=== PATIENT | male | born 1950 | race Caucasian/White ===

== ENCOUNTER 2016-12-04 02:28 | Inpatient (IN) | payer MEDICARE, OTHER ==
[~2016-12-04] VITALS: Ht 182.9 cm; Wt 85.3 kg
[2016-12-04] VITALS (7 sets, daily range): BP systolic 109–170; BP diastolic 74–114
--- NOTE | 2016-12-04 02:55 | PHYS DOC ---
Past Medical History Past Medical History: High Cholesterol, Hypothyroid, Prostatitis Past Surgical History: Appendectomy, Other Additional Past Surgical Histo: TUMOR REMOVAL FROM GROIN Alcohol Use: None Drug Use: None Adult General Chief Complaint Chief Complaint: GROIN PAIN HPI HPI Patient is a 66 year old male with a history of prostatitis who states that he have a flareup for the past week. Patient called his PCP earlier in the week who prescribed him Levaquin which she has taken the past for his acute prostatitis. Chem emergency room because the pain has been persistent and increasing without any relief. Patient denies any fevers or chills. Patient complains of severe abdominal pain with radiation down his left leg. Patient denies any chest pain or shortness of breath. Patient has no other complaints. Pertinent exam findings: Generalized abdominal tenderness with bowel sounds in all 4 quadrants ED course: 0251: CBC, CMP, lipase, UA, CT of abdomen and pelvis with IV contrast, fentanyl 50 micrograms, 1L nS boulus 0405: He was given 100 g of fentanyl 0417: Results of CT scan and lab work was discussed the patient who states he has no known history of hyponatremia and explained the need to admit the patient to the hospital. 0427: Discussed CC/HPI/PMH with Dr. Jeronimo who agrees to admit the patient Pertinent results: IMPRESSION of CT 1. Moderate atelectasis or scarring in the lung bases. 2. Small hiatal hernia. 3. Hepatic cysts. 4. Mild bilateral hydroureter. There is no hydronephrosis or ureteral calculus or periureteral stranding. Clinical significance uncertain. 5. Moderate colon stool volume. Mild distal colon diverticulosis without evidence of diverticulitis. ED medical decision-making: After reviewing the chart, chief complaint, history of present illness, past mental history, physical exam, lab results, CT results I believe the patient needs to be admitted the hospital for intractable abdominal pain and hyponatremia. Review of Systems Review of Systems Constitutional: Denies fever or chills [] Eyes: Denies change in visual acuity, redness, or eye pain [] HENT: Denies nasal congestion or sore throat [] Respiratory: Denies cough or shortness of breath [] Cardiovascular: No additional information not addressed in HPI [] GI: Abdominal pain : Denies dysuria or hematuria [] Musculoskeletal: Denies back pain or joint pain [] Integument: Denies rash or skin lesions [] Neurologic: Denies headache, focal weakness or sensory changes [] Endocrine: Denies polyuria or polydipsia [] Current Medications Current Medications Current Medications Medications (Trade) Dose Ordered Sig/Shukri Start Time Stop Time Status Last Admin Dose Admin Fentanyl Citrate (Fentanyl 2ml Vial) 100 mcg 1X ONCE 12/04/16 04:30 12/04/16 04:31 DC 12/04/16 04:19 100 MCG Info (Do NOT chart on this entry -- for MONITORING) 1 each PRN DAILY PRN 12/04/16 03:15 12/06/16 03:14 Iohexol (Omnipaque 300 Mg/ml) 75 ml 1X ONCE 12/04/16 04:00 12/04/16 04:01 DC 12/04/16 03:55 75 ML Sodium Chloride 1,000 ml @ 1,000 mls/hr 1X ONCE 12/04/16 03:00 12/04/16 03:59 DC 12/04/16 03:04 1,000 MLS/HR Allergies Allergies Allergies Coded Allergies Type Severity Reaction Last Updated Verified No Known Drug Allergies 01/23/15 No Physical Exam Physical Exam Constitutional: Well developed, well nourished, no acute distress, non-toxic appearance. [] HENT: Normocephalic, atraumatic, bilateral external ears normal, oropharynx moist, no oral exudates, nose normal. [] Eyes: PERRLA, EOMI, conjunctiva normal, no discharge. [] Neck: Normal range of motion, no tenderness, supple, no stridor. [] Cardiovascular:Heart rate regular rhythm, no murmur [] Lungs & Thorax: Bilateral breath sounds clear to auscultation [] Abdomen: Bowel sounds normal, soft, general tenderness, no masses, no pulsatile masses. [] Skin: Warm, dry, no erythema, no rash. [] Back: No tenderness, no CVA tenderness. [] Extremities: No tenderness, no cyanosis, no clubbing, ROM intact, no edema. [] Neurologic: Alert and oriented X 3, normal motor function, normal sensory function, no focal deficits noted. [] Psychologic: Affect normal, judgement normal, mood normal. [] Current Patient Data Vital Signs Vital Signs Date Time Temp Pulse Resp B/P (MAP) Pulse Ox O2 Delivery O2 Flow Rate FiO2 5/13/17 02:43 98.0 69 20 145/98 (114) 97 Room Air 98.0 Lab Values Laboratory Tests Test 12/04/16 02:33 12/04/16 02:41 Urine Collection Type Unknown Urine Color Yellow Urine Clarity Clear Urine pH 8.0 Urine Specific [place] 1.015 Urine Protein Negative mg/dL (NEG-TRACE) Urine Glucose (UA) Negative mg/dL (NEG) Urine Ketones (Stick) Trace mg/dL (NEG) Urine Blood Negative (NEG) Urine Nitrite Negative (NEG) Urine Bilirubin Negative (NEG) Urine Urobilinogen Dipstick 1.0 mg/dL (0.2 mg/dL) Urine Leukocyte Esterase Negative (NEG) Urine RBC Occ /HPF (0-2) Urine WBC 1-4 /HPF (0-4) Urine Squamous Epithelial Cells Occ /LPF Urine Bacteria 0 /HPF (0-FEW) White Blood Count 6.4 x10^3/uL (4.0-11.0) Red Blood Count 4.80 x10^6/uL (4.30-5.70) Hemoglobin 13.9 g/dL (13.0-17.5) Hematocrit 41.0 % (39.0-53.0) Mean Corpuscular Volume 86 fL (79-100) Mean Corpuscular Hemoglobin 29 pg (25-35) Mean Corpuscular Hemoglobin Concent 34 g/dL (31-37) Red Cell Distribution Width 16.4 % (11.5-14.5) H Platelet Count 185 x10^3/uL (140-400) Neutrophils (%) (Auto) 61 % (31-73) Lymphocytes (%) (Auto) 29 % (24-48) Monocytes (%) (Auto) 9 % (0-9) Eosinophils (%) (Auto) 1 % (0-3) Basophils (%) (Auto) 1 % (0-3) Neutrophils # (Auto) 3.9 x10^3uL (1.8-7.7) Lymphocytes # (Auto) 1.9 x10^3/uL (1.0-4.8) Monocytes # (Auto) 0.5 x10^3/uL (0.0-1.1) Eosinophils # (Auto) 0.0 x10^3/uL (0.0-0.7) Basophils # (Auto) 0.1 x10^3/uL (0.0-0.2) Sodium Level 123 mmol/L (136-145) L Potassium Level 3.4 mmol/L (3.5-5.1) L Chloride Level 87 mmol/L (98-107) L Carbon Dioxide Level 28 mmol/L (21-32) Anion Gap 8 (6-14) Blood Urea Nitrogen 12 mg/dL (8-26) Creatinine 0.9 mg/dL (0.7-1.3) Estimated GFR (Cockcroft-Gault) 83.9 BUN/Creatinine Ratio 13 (6-20) Glucose Level 85 mg/dL (70-99) Calcium Level 8.2 mg/dL (8.5-10.1) L Total Bilirubin 0.6 mg/dL (0.2-1.0) Aspartate Amino Transferase (AST) 22 U/L (15-37) Alanine Aminotransferase (ALT) 23 U/L (16-63) Alkaline Phosphatase 47 U/L (46-116) Total Protein 7.0 g/dL (6.4-8.2) Albumin 3.5 g/dL (3.4-5.0) Albumin/Globulin Ratio 1.0 (1.0-1.7) Lipase 79 U/L (73-393) Laboratory Tests 12/04/16 02:41 Laboratory Tests 12/04/16 02:41 EKG EKG [] Radiology/Procedures Radiology/Procedures CT Abd and Pelvis: IMPRESSION 1. Moderate atelectasis or scarring in the lung bases. 2. Small hiatal hernia. 3. Hepatic cysts. 4. Mild bilateral hydroureter. There is no hydronephrosis or ureteral calculus or periureteral stranding. Clinical significance uncertain. 5. Moderate colon stool volume. Mild distal colon diverticulosis without evidence of diverticulitis.[] Course & Med Decision Making Course & Med Decision Making Pertinent Labs and Imaging studies reviewed. (See chart for details) [] Dragon Disclaimer Dragon Disclaimer This electronic medical record was generated, in whole or in part, using a voice recognition dictation system. Departure Departure Impression: Primary Impression: Hyponatremia Additional Impression: Intractable abdominal pain Disposition: 09 ADMITTED INPATIENT Admitting Physician: Dany Jeronimo Condition: STABLE Referrals: DANY JERONIMO MD (PCP) Problem Qualifiers KIRSTY BELL DO December 04, 2016 02:55
[2016-12-04 02:59] LABS: BASO # 0.1 x10^3/uL (0.0-0.2); BASO % 1 % (0-3); EOS % 1 % (0-3); HEMOGLOBIN 13.9 g/dL (13.0-17.5); LYMPH # 1.9 x10^3/uL (1.0-4.8); LYMPH % 29 % (24-48); MEAN CORPUSCULAR HEMOGLOBIN 29 pg (25-35); MEAN CORPUSCULAR HGB CONC 34 g/dL (31-37); MEAN CORPUSCULAR VOLUME 86 fL (79-100); MONO % 9 % (0-9); NEUT % 61 % (31-73); PLATELET COUNT 185 x10^3/uL (140-400); RED CELL DISTRIBUTION WIDTH 16.4 % (11.5-14.5); WHITE BLOOD COUNT 6.4 x10^3/uL (4.0-11.0)
[2016-12-04] MEDS ORDERED: fentaNYL PF VIAL 100 MCG/2 ML VIAL IV ONE ×2 (03:00→04:30)
[2016-12-04] MEDS ORDERED: IV NORMAL SALINE 1000ML BAG 1,000 ML IV ONE (03:00)
[2016-12-04] MEDS ORDERED: CONTRAST GIVEN MC PRN (03:15)
[2016-12-04 03:25] LABS: CALCIUM 8.2 mg/dL (8.5-10.1); CREATININE 0.9 mg/dL (0.7-1.3); GFR 83.9; POTASSIUM 3.4 mmol/L (3.5-5.1)
[2016-12-04 03:25] LABS: BILIRUBIN,URINE NEGATIVE (NEG); GLUCOSE,URINE NEGATIVE (NEG); NITRITE,URINE NEGATIVE (NEG); PROTEIN,URINE NEGATIVE (NEG-TRACE)
[2016-12-04 03:31] LABS: ALBUMIN 3.5 g/dL (3.4-5.0); TOTAL BILIRUBIN 0.6 mg/dL (0.2-1.0)
[2016-12-04 03:37] LABS: BACTERIA,URINE 0 /HPF (0-FEW); RBC,URINE OCC /HPF (0-2); SQUAMOUS EPITHELIAL CELL,UR OCC /LPF
[2016-12-04] MEDS ORDERED: IOHEXOL 300 MG/ML 75 ML VIAL IV ONE (04:00)
--- NOTE | 2016-12-04 04:07 | RAD ---
PROCEDURE CT abdomen pelvis with contrast. HISTORY Lower abdominal pain and bilateral flank pain. History of prostatitis. TECHNIQUE Helical CT imaging of the abdomen and pelvis is performed after 75 cc Omnipaque 300 IV contrast. Oral contrast is not given. PQRS: One or more the following individualized dose reduction techniques were utilized for the study: 1. Automated exposure control. 2. Adjustment of the mA and/or kV according to patient size. 3. Use of iterative reconstruction technique. COMPARISON None. FINDINGS Small hiatal hernia. Cardiac size normal. Moderate atelectasis or scarring in the lung bases. There is a lobular 2.8 centimeter cyst in the right hepatic lobe inferiorly. Small cyst left hepatic lobe. Small cyst inferior right hepatic lobe. There are 2 other tiny hypodensities in the right hepatic lobe superiorly that are too small to further characterize. Gallbladder, spleen, pancreas, adrenal glands, and abdominal aortic caliber normal. Kidneys enhance symmetrically. There is no hydronephrosis. There is mild bilateral hydroureter. There is no ureteral calculus. No periureteral stranding. Stomach unremarkable. No dilated small bowel. Mild distal colon diverticulosis. Moderate stool in the colon. Transverse colon mildly distended. No colon wall thickening. No secondary signs of appendicitis. No abdominal adenopathy or free fluid. Tiny fat containing umbilical hernia. Urinary bladder is mildly distended, otherwise normal. Prostate size upper limits of normal. No pelvic free fluid. No compression fracture in the thoracolumbar spine. IMPRESSION 1. Moderate atelectasis or scarring in the lung bases. 2. Small hiatal hernia. 3. Hepatic cysts. 4. Mild bilateral hydroureter. There is no hydronephrosis or ureteral calculus or periureteral stranding. Clinical significance uncertain. 5. Moderate colon stool volume. Mild distal colon diverticulosis without evidence of diverticulitis. Electronically signed by: Dilan Khan MD (December 04, 2016 04:05:27)
[2016-12-04] MEDS ORDERED: ONDANSETRON PF 4 MG/2 ML VIAL. IV PRN (04:45)
[2016-12-04] MEDS ORDERED: ACETAMINOPHEN 325 MG TABLET. PO PRN (04:45)
[2016-12-04] MEDS: MORPHINE SULFATE 4 MG/ML DISP.SYRIN. IV PRN ×5 (05:15→23:42)
[2016-12-04] MEDS: IV NORMAL SALINE 1000ML BAG 1,000 ML IV SCH ×3 (06:18→22:36)
[2016-12-04] MEDS ORDERED: LANS30CA PO (06:24)
[2016-12-04] MEDS ORDERED: LEVO25TA52 PO (06:24)
[2016-12-04] MEDS ORDERED: CLON0.5T3 PO (06:25)
[2016-12-04] MEDS ORDERED: DIVA500T17 PO (06:25)
[2016-12-04] MEDS ORDERED: PRED2.5T PO (06:25)
[2016-12-04] MEDS ORDERED: TEST200V3 IM (06:25)
[2016-12-04] MEDS ORDERED: VENL150C PO (06:25)
[2016-12-04] MEDS ORDERED: SIMV20TA3 PO (06:25)
--- NOTE | 2016-12-04 09:53 | PDOC ---
GENERAL General: see dictated H&P. Problems: VITAL SIGNS Vital Signs: Vital Signs Date Time Temp Pulse Resp B/P (MAP) Pulse Ox O2 Delivery O2 Flow Rate FiO2 12/04/16 08:57 16 Room Air 12/04/16 07:15 97.5 61 150/96 (114) 98 97.5 ALLERGIES Allergies: Allergies Coded Allergies Type Severity Reaction Last Updated Verified No Known Drug Allergies 01/23/15 No MEDS Medications: Current Medications Medications (Trade) Dose Ordered Sig/Shukri Start Time Stop Time Status Last Admin Dose Admin Acetaminophen (Tylenol) 650 mg PRN Q4HRS PRN 12/04/16 04:45 12/05/16 04:44 Fentanyl Citrate (Fentanyl 2ml Vial) 100 mcg 1X ONCE 12/04/16 04:30 12/04/16 04:31 DC 12/04/16 04:19 100 MCG Info (Do NOT chart on this entry -- for MONITORING) 1 each PRN DAILY PRN 12/04/16 03:15 12/06/16 03:14 Iohexol (Omnipaque 300 Mg/ml) 75 ml 1X ONCE 12/04/16 04:00 12/04/16 04:01 DC 12/04/16 03:55 75 ML Morphine Sulfate 4 mg PRN Q2HR PRN 12/04/16 04:45 12/05/16 04:44 12/04/16 08:57 4 MG Ondansetron HCl (Zofran) 4 mg PRN Q8HRS PRN 12/04/16 04:45 12/05/16 04:44 12/04/16 05:22 4 MG Sodium Chloride 1,000 ml @ 100 mls/hr Q10H 12/04/16 04:35 12/05/16 04:34 12/04/16 06:18 100 MLS/HR LAB Lab: Laboratory Tests Test 12/04/16 02:33 12/04/16 02:41 Urine Collection Type Unknown Urine Color Yellow Urine Clarity Clear Urine pH 8.0 Urine Specific [place] 1.015 Urine Protein Negative mg/dL (NEG-TRACE) Urine Glucose (UA) Negative mg/dL (NEG) Urine Ketones (Stick) Trace mg/dL (NEG) Urine Blood Negative (NEG) Urine Nitrite Negative (NEG) Urine Bilirubin Negative (NEG) Urine Urobilinogen Dipstick 1.0 mg/dL (0.2 mg/dL) Urine Leukocyte Esterase Negative (NEG) Urine RBC Occ /HPF (0-2) Urine WBC 1-4 /HPF (0-4) Urine Squamous Epithelial Cells Occ /LPF Urine Bacteria 0 /HPF (0-FEW) White Blood Count 6.4 x10^3/uL (4.0-11.0) Red Blood Count 4.80 x10^6/uL (4.30-5.70) Hemoglobin 13.9 g/dL (13.0-17.5) Hematocrit 41.0 % (39.0-53.0) Mean Corpuscular Volume 86 fL (79-100) Mean Corpuscular Hemoglobin 29 pg (25-35) Mean Corpuscular Hemoglobin Concent 34 g/dL (31-37) Red Cell Distribution Width 16.4 % (11.5-14.5) Platelet Count 185 x10^3/uL (140-400) Neutrophils (%) (Auto) 61 % (31-73) Lymphocytes (%) (Auto) 29 % (24-48) Monocytes (%) (Auto) 9 % (0-9) Eosinophils (%) (Auto) 1 % (0-3) Basophils (%) (Auto) 1 % (0-3) Neutrophils # (Auto) 3.9 x10^3uL (1.8-7.7) Lymphocytes # (Auto) 1.9 x10^3/uL (1.0-4.8) Monocytes # (Auto) 0.5 x10^3/uL (0.0-1.1) Eosinophils # (Auto) 0.0 x10^3/uL (0.0-0.7) Basophils # (Auto) 0.1 x10^3/uL (0.0-0.2) Sodium Level 123 mmol/L (136-145) Potassium Level 3.4 mmol/L (3.5-5.1) Chloride Level 87 mmol/L (98-107) Carbon Dioxide Level 28 mmol/L (21-32) Anion Gap 8 (6-14) Blood Urea Nitrogen 12 mg/dL (8-26) Creatinine 0.9 mg/dL (0.7-1.3) Estimated GFR (Cockcroft-Gault) 83.9 BUN/Creatinine Ratio 13 (6-20) Glucose Level 85 mg/dL (70-99) Calcium Level 8.2 mg/dL (8.5-10.1) Total Bilirubin 0.6 mg/dL (0.2-1.0) Aspartate Amino Transf (AST/SGOT) 22 U/L (15-37) Alanine Aminotransferase (ALT/SGPT) 23 U/L (16-63) Alkaline Phosphatase 47 U/L (46-116) Total Protein 7.0 g/dL (6.4-8.2) Albumin 3.5 g/dL (3.4-5.0) Albumin/Globulin Ratio 1.0 (1.0-1.7) Lipase 79 U/L (73-393) DANY JERONIMO MD December 04, 2016 09:53
[2016-12-04] MEDS: clonazePAM 0.5 MG TABLET PO SCH ×2 (10:32→16:39)
[2016-12-04] MEDS: LEVOTHYROXINE 25 MCG TABLET. PO SCH (10:32)
[2016-12-04] MEDS: predniSONE 5 MG TABLET PO SCH (10:32)
[2016-12-04] MEDS: PANTOPRAZOLE 40 MG TABLET.DR. PO SCH (10:32)
[2016-12-04] MEDS: VENLAFAXINE 50 MG TABLET. PO SCH ×3 (10:33→21:16)
[2016-12-04] MEDS: DIVALPROEX EXTENDED RELEASE 500 MG TAB.ER.24H. PO SCH ×2 (10:33→16:40)
--- NOTE | 2016-12-04 13:33 | HP ---
ADMIT DATE: 12/04/2016 CHIEF COMPLAINT AND HISTORY OF PRESENT ILLNESS: This 66-year-old white male who is well known to me from followup in the office. The patient was started on Levaquin earlier in the week for his presumed recurrence of chronic prostatitis, which he has had off and on for years. He progressively got worse, developed ____ abdominal pain, presented to the Emergency Room where he was diffusely tender, but profoundly hyponatremic with sodium of 123 and admitted for the abdominal pain and hyponatremia. PAST MEDICAL HISTORY: Remarkable for hyperlipidemia; hypothyroidism; low testosterone and prior pituitary adenoma, which has been removed; prostatitis. PAST SURGICAL HISTORY: He has had prior appendectomy. MEDICATIONS: Brought with the patient, listed on the computer and have been addressed. ALLERGIES: He has no known drug allergies. 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 He is nonsmoker, nondrinker, does not use drugs. , lives at home with his . FAMILY HISTORY: Noncontributory. REVIEW OF SYSTEMS: As mentioned above. PHYSICAL EXAMINATION: GENERAL: He is a well-developed, well-nourished white male, who is quite anxious. VITAL SIGNS: Stable. He is afebrile. HEAD, EYES, EARS, NOSE AND THROAT: Unremarkable. NECK: Supple, ____ thyromegaly. CHEST: Clear to auscultation and percussion. HEART: Regular rate and rhythm without S3, S4 or murmur. ABDOMEN: Diffusely tender without rebound, guarding, hepatosplenomegaly or masses. EXTREMITIES: Without cyanosis, clubbing or edema. NEUROLOGIC: He is intact. IMPRESSION: Abdominal pain of uncertain etiology with negative CT in the Emergency Room and on treatment for prostatitis as outlined above and profound hyponatremia. PLAN: The patient has been admitted. Normal saline is running. Renal will be consulted for the hyponatremia. We will observe at this point for the abdominal pain and the patient will be monitored, managed and treated appropriately. DANY JERONIMO MD DR: RANDI/otilia JOB#: [id number] / [id number]
--- NOTE | 2016-12-04 14:55 | ACF ---
Admission Forms Criteria HYPONATREMIA; HYPERNATREMIA; HYPOKALEMIA; HYPERKALEMIA; HYPOCALCEMIA; HYPERCALCEMIA Clinical Indications for Inpatient Care (Place 'X' for any and all applicable criteria): Ongoing inpatient care may be indicated for ANY ONE of the following [G](1)(2)(3 )(5): [X]I. Hyponatremia with ANY ONE of the following: [X]a) Sodium less than 130 mEq/L (mmol/L) (new) (6)(22) [ ]b) Sodium less than 135 mEq/L (mmol/L) with ANY ONE of the following: [ ]i) Severe medical etiology requiring inpatient management (eg, heart failure, hypovolemia) [ ]ii) Altered mental status [ ]iii) Seizures [ ]II. Hypernatremia with ANY ONE of the following: [ ]a) Sodium greater than 155 mEq/L (mmol/L) [ ]b) Sodium greater than 150 mEq/L (mmol/L) with ANY ONE of the following: [ ] i) Altered mental status [ ]ii) Seizures [ ]iii) Severe medical etiology (eg, hypovolemia, diabetes insipidus) [ ]iv) Severe weakness [ ]v) Severe medical etiology (eg, hemolysis, infection, drug overdose) [ ]III. Hypokalemia with ANY ONE of the following: [ ]a) Potassium less than 2.5 mEq/L (mmol/L) despite outpatient and emergency treatment [ ]b) Potassium less than 3.0 mEq/L (mmol/L) with ANY ONE of the following: [ ]i) Weakness [ ]ii) Cardiac abnormality (eg, arrhythmia, conduction disturbance) [ ]iii) Cardiac ischemia [ ]iv) Ileus [ ]v) Ongoing medical cause requiring inpatient management. ( e.g., acute renal wasting, SIADH) [ ]vi) Other severe symptoms [ ] IV. Hyperkalemia with ANY ONE of the following: [ ]a) Potassium greater than 6.5 mEq/L (mmol/L) [ ]b) Potassium greater than 5 mEq/L (mmol/L) with ANY ONE of the following: [ ]i) Severe ECG findings [H] [ ]ii) Acute worsening of renal failure (creatinine greater than 2.5 mg/dL (221 micromoles/L) or significant elevation for age and size) [ ] V. Hypocalcemia with ANY ONE of the following: [ ]a) Calcium less than 7 mg/dL (1.75 mmol/L) despite outpatient and emergency treatment(19) [ ]b) Calcium less than 8 mg/dL (2 mmol/L) with significant symptoms or findings; examples include: [ ]i) Cardiac abnormality (eg, arrhythmia or conduction disturbance) [ ]ii) Altered mental status [ ]iii) Seizures [ ]iv) Breathing difficulty [ ]v) Muscle spasms [ ]. Hypercalcemia with ANY ONE of the following: [ ]a) Calcium greater than 14 mg/dL (3.5 mmol/L) [ ]b) Calcium greater than 12 mg/dL (3 mmol/L) with ANY ONE of the following: [ ]i) Significant dehydration or hypovolemia as indicated by ANY ONE of the following(2): [ ]1. Clinically significant dehydration as indicated by ANY ONE of the following: [ ]A. Acute loss of weight from baseline (5% of body weight in adults, 9% in pediatric patients) [ ]B. Hemodynamic instability [ ]C. Acute renal failure [ ]D. Serum sodium greater than 150 mEq/L (mmol/L) [ ]2) Dehydration that is persistent indicated by ALL of the following: [ ]A. Oral rehydration therapy not tolerated or insufficient to adequately correct dehydration [ ]B. Appropriate intravenous treatment (eg, fluids ) does not readily correct dehydration ie, after 12 to 24 hours of treatment) [ ]ii) Significant symptoms or findings; examples include: [ ]1) Altered mental status [ ]2) Cardiac abnormality (eg, arrhythmia, conduction disturbance) [ ]3) Cardiac abnormality (eg, arrhythmia, conduction disturbance) The original [facility] content created by [facility] has been revised. The portions of the content which have been revised are identified through the use of italic text or in bold, and [facility] has neither reviewed nor approved the modified material. All other unmodified content is copyright [facility] [email or web address] Please see references footnoted in the original [facility] Abigail Stewart edition 2016 Admission Criteria Met?: Yes RANDY MOTT December 04, 2016 14:55
[2016-12-04] MEDS: SIMVASTATIN 20 MG TABLET PO SCH (21:16)
--- NOTE | 2016-12-04 22:22 | PDOC ---
SURGICAL PROGRESS NOTE Subjective Consult dictated [id number] Vital Signs Vital Signs Date Time Temp Pulse Resp B/P (MAP) Pulse Ox O2 Delivery O2 Flow Rate FiO2 12/04/16 21:48 18 94 Room Air 12/04/16 19:00 97.7 66 109/74 (86) 97.7 Labs Laboratory Tests Test 12/04/16 02:33 12/04/16 02:41 Urine Collection Type Unknown Urine Color Yellow Urine Clarity Clear Urine pH 8.0 Urine Specific [place] 1.015 Urine Protein Negative mg/dL (NEG-TRACE) Urine Glucose (UA) Negative mg/dL (NEG) Urine Ketones (Stick) Trace mg/dL (NEG) Urine Blood Negative (NEG) Urine Nitrite Negative (NEG) Urine Bilirubin Negative (NEG) Urine Urobilinogen Dipstick 1.0 mg/dL (0.2 mg/dL) Urine Leukocyte Esterase Negative (NEG) Urine RBC Occ /HPF (0-2) Urine WBC 1-4 /HPF (0-4) Urine Squamous Epithelial Cells Occ /LPF Urine Bacteria 0 /HPF (0-FEW) White Blood Count 6.4 x10^3/uL (4.0-11.0) Red Blood Count 4.80 x10^6/uL (4.30-5.70) Hemoglobin 13.9 g/dL (13.0-17.5) Hematocrit 41.0 % (39.0-53.0) Mean Corpuscular Volume 86 fL (79-100) Mean Corpuscular Hemoglobin 29 pg (25-35) Mean Corpuscular Hemoglobin Concent 34 g/dL (31-37) Red Cell Distribution Width 16.4 % (11.5-14.5) Platelet Count 185 x10^3/uL (140-400) Neutrophils (%) (Auto) 61 % (31-73) Lymphocytes (%) (Auto) 29 % (24-48) Monocytes (%) (Auto) 9 % (0-9) Eosinophils (%) (Auto) 1 % (0-3) Basophils (%) (Auto) 1 % (0-3) Neutrophils # (Auto) 3.9 x10^3uL (1.8-7.7) Lymphocytes # (Auto) 1.9 x10^3/uL (1.0-4.8) Monocytes # (Auto) 0.5 x10^3/uL (0.0-1.1) Eosinophils # (Auto) 0.0 x10^3/uL (0.0-0.7) Basophils # (Auto) 0.1 x10^3/uL (0.0-0.2) Sodium Level 123 mmol/L (136-145) Potassium Level 3.4 mmol/L (3.5-5.1) Chloride Level 87 mmol/L (98-107) Carbon Dioxide Level 28 mmol/L (21-32) Anion Gap 8 (6-14) Blood Urea Nitrogen 12 mg/dL (8-26) Creatinine 0.9 mg/dL (0.7-1.3) Estimated GFR (Cockcroft-Gault) 83.9 BUN/Creatinine Ratio 13 (6-20) Glucose Level 85 mg/dL (70-99) Calcium Level 8.2 mg/dL (8.5-10.1) Total Bilirubin 0.6 mg/dL (0.2-1.0) Aspartate Amino Transf (AST/SGOT) 22 U/L (15-37) Alanine Aminotransferase (ALT/SGPT) 23 U/L (16-63) Alkaline Phosphatase 47 U/L (46-116) Total Protein 7.0 g/dL (6.4-8.2) Albumin 3.5 g/dL (3.4-5.0) Albumin/Globulin Ratio 1.0 (1.0-1.7) Lipase 79 U/L (73-393) Laboratory Tests Test 12/04/16 02:33 12/04/16 02:41 Urine Collection Type Unknown Urine Color Yellow Urine Clarity Clear Urine pH 8.0 Urine Specific [place] 1.015 Urine Protein Negative mg/dL (NEG-TRACE) Urine Glucose (UA) Negative mg/dL (NEG) Urine Ketones (Stick) Trace mg/dL (NEG) Urine Blood Negative (NEG) Urine Nitrite Negative (NEG) Urine Bilirubin Negative (NEG) Urine Urobilinogen Dipstick 1.0 mg/dL (0.2 mg/dL) Urine Leukocyte Esterase Negative (NEG) Urine RBC Occ /HPF (0-2) Urine WBC 1-4 /HPF (0-4) Urine Squamous Epithelial Cells Occ /LPF Urine Bacteria 0 /HPF (0-FEW) White Blood Count 6.4 x10^3/uL (4.0-11.0) Red Blood Count 4.80 x10^6/uL (4.30-5.70) Hemoglobin 13.9 g/dL (13.0-17.5) Hematocrit 41.0 % (39.0-53.0) Mean Corpuscular Volume 86 fL (79-100) Mean Corpuscular Hemoglobin 29 pg (25-35) Mean Corpuscular Hemoglobin Concent 34 g/dL (31-37) Red Cell Distribution Width 16.4 % (11.5-14.5) Platelet Count 185 x10^3/uL (140-400) Neutrophils (%) (Auto) 61 % (31-73) Lymphocytes (%) (Auto) 29 % (24-48) Monocytes (%) (Auto) 9 % (0-9) Eosinophils (%) (Auto) 1 % (0-3) Basophils (%) (Auto) 1 % (0-3) Neutrophils # (Auto) 3.9 x10^3uL (1.8-7.7) Lymphocytes # (Auto) 1.9 x10^3/uL (1.0-4.8) Monocytes # (Auto) 0.5 x10^3/uL (0.0-1.1) Eosinophils # (Auto) 0.0 x10^3/uL (0.0-0.7) Basophils # (Auto) 0.1 x10^3/uL (0.0-0.2) Sodium Level 123 mmol/L (136-145) Potassium Level 3.4 mmol/L (3.5-5.1) Chloride Level 87 mmol/L (98-107) Carbon Dioxide Level 28 mmol/L (21-32) Anion Gap 8 (6-14) Blood Urea Nitrogen 12 mg/dL (8-26) Creatinine 0.9 mg/dL (0.7-1.3) Estimated GFR (Cockcroft-Gault) 83.9 BUN/Creatinine Ratio 13 (6-20) Glucose Level 85 mg/dL (70-99) Calcium Level 8.2 mg/dL (8.5-10.1) Total Bilirubin 0.6 mg/dL (0.2-1.0) Aspartate Amino Transf (AST/SGOT) 22 U/L (15-37) Alanine Aminotransferase (ALT/SGPT) 23 U/L (16-63) Alkaline Phosphatase 47 U/L (46-116) Total Protein 7.0 g/dL (6.4-8.2) Albumin 3.5 g/dL (3.4-5.0) Albumin/Globulin Ratio 1.0 (1.0-1.7) Lipase 79 U/L (73-393) Problem List Problems Medical Problems: (1) Hyponatremia Status: Acute (2) Intractable abdominal pain Status: Acute Problems: [place] DIANA MD December 04, 2016 22:22
[2016-12-05] MEDS: MORPHINE SULFATE 4 MG/ML DISP.SYRIN. IV PRN ×9 (04:09→23:50)
[2016-12-05 06:33] LABS: BASO # 0.1 x10^3/uL (0.0-0.2); BASO % 1 % (0-3); EOS % 1 % (0-3); HEMATOCRIT 42.4 % (39.0-53.0); HEMOGLOBIN 14.1 g/dL (13.0-17.5); LYMPH # 1.7 x10^3/uL (1.0-4.8); LYMPH % 31 % (24-48); MEAN CORPUSCULAR HEMOGLOBIN 29 pg (25-35); MEAN CORPUSCULAR HGB CONC 33 g/dL (31-37); MEAN CORPUSCULAR VOLUME 87 fL (79-100); MONO % 10 % (0-9); NEUT % 57 % (31-73); PLATELET COUNT 203 x10^3/uL (140-400); RED BLOOD COUNT 4.88 x10^6/uL (4.30-5.70); RED CELL DISTRIBUTION WIDTH 16.9 % (11.5-14.5); WHITE BLOOD COUNT 5.3 x10^3/uL (4.0-11.0)
[2016-12-05 06:54] LABS: ALBUMIN 3.1 g/dL (3.4-5.0); CALCIUM 8.1 mg/dL (8.5-10.1); GFR 74.3; TOTAL BILIRUBIN 0.3 mg/dL (0.2-1.0); TOTAL PROTEIN 6.3 g/dL (6.4-8.2)
[2016-12-05 06:55] LABS: POTASSIUM 5.4 mmol/L (3.5-5.1)
[2016-12-05 07:00] VITALS: BP 123/63
[2016-12-05] MEDS: PANTOPRAZOLE 40 MG TABLET.DR. PO SCH (08:05)
[2016-12-05] MEDS: predniSONE 5 MG TABLET PO SCH (08:05)
[2016-12-05] MEDS: VENLAFAXINE 50 MG TABLET. PO SCH ×3 (08:05→21:09)
[2016-12-05] MEDS: LEVOTHYROXINE 25 MCG TABLET. PO SCH (08:05)
--- NOTE | 2016-12-05 09:26 | PDOC ---
JOSEFINA FORDE WASH DRILLER 12/05/16 0926: SURGICAL PROGRESS NOTE Subjective pain is now worse again generalized abdomen/scrotum/testicular pain dysuria Vital Signs Vital Signs Date Time Temp Pulse Resp B/P (MAP) Pulse Ox O2 Delivery O2 Flow Rate FiO2 12/05/16 08:06 14 Room Air 12/05/16 04:09 97 12/04/16 23:00 95.9 71 141/95 (110) 95.9 I&O Intake and Output 12/05/16 07:00 Intake Total 350 ml Balance 350 ml Intake Oral 50 ml IV Total 300 ml # Voids 3 General: Alert, Oriented X3, Cooperative, No acute distress Abdomen: Soft, Other (tenderness across abdomen ) Labs Laboratory Tests Test 12/04/16 02:33 12/04/16 02:41 12/05/16 05:45 Urine Collection Type Unknown Urine Color Yellow Urine Clarity Clear Urine pH 8.0 Urine Specific [place] 1.015 Urine Protein Negative mg/dL (NEG-TRACE) Urine Glucose (UA) Negative mg/dL (NEG) Urine Ketones (Stick) Trace mg/dL (NEG) Urine Blood Negative (NEG) Urine Nitrite Negative (NEG) Urine Bilirubin Negative (NEG) Urine Urobilinogen Dipstick 1.0 mg/dL (0.2 mg/dL) Urine Leukocyte Esterase Negative (NEG) Urine RBC Occ /HPF (0-2) Urine WBC 1-4 /HPF (0-4) Urine Squamous Epithelial Cells Occ /LPF Urine Bacteria 0 /HPF (0-FEW) White Blood Count 6.4 x10^3/uL (4.0-11.0) 5.3 x10^3/uL (4.0-11.0) Red Blood Count 4.80 x10^6/uL (4.30-5.70) 4.88 x10^6/uL (4.30-5.70) Hemoglobin 13.9 g/dL (13.0-17.5) 14.1 g/dL (13.0-17.5) Hematocrit 41.0 % (39.0-53.0) 42.4 % (39.0-53.0) Mean Corpuscular Volume 86 fL (79-100) 87 fL (79-100) Mean Corpuscular Hemoglobin 29 pg (25-35) 29 pg (25-35) Mean Corpuscular Hemoglobin Concent 34 g/dL (31-37) 33 g/dL (31-37) Red Cell Distribution Width 16.4 % (11.5-14.5) 16.9 % (11.5-14.5) Platelet Count 185 x10^3/uL (140-400) 203 x10^3/uL (140-400) Neutrophils (%) (Auto) 61 % (31-73) 57 % (31-73) Lymphocytes (%) (Auto) 29 % (24-48) 31 % (24-48) Monocytes (%) (Auto) 9 % (0-9) 10 % (0-9) Eosinophils (%) (Auto) 1 % (0-3) 1 % (0-3) Basophils (%) (Auto) 1 % (0-3) 1 % (0-3) Neutrophils # (Auto) 3.9 x10^3uL (1.8-7.7) 3.0 x10^3uL (1.8-7.7) Lymphocytes # (Auto) 1.9 x10^3/uL (1.0-4.8) 1.7 x10^3/uL (1.0-4.8) Monocytes # (Auto) 0.5 x10^3/uL (0.0-1.1) 0.5 x10^3/uL (0.0-1.1) Eosinophils # (Auto) 0.0 x10^3/uL (0.0-0.7) 0.0 x10^3/uL (0.0-0.7) Basophils # (Auto) 0.1 x10^3/uL (0.0-0.2) 0.1 x10^3/uL (0.0-0.2) Sodium Level 123 mmol/L (136-145) 140 mmol/L (136-145) Potassium Level 3.4 mmol/L (3.5-5.1) 5.4 mmol/L (3.5-5.1) Chloride Level 87 mmol/L (98-107) 105 mmol/L (98-107) Carbon Dioxide Level 28 mmol/L (21-32) 28 mmol/L (21-32) Anion Gap 8 (6-14) 7 (6-14) Blood Urea Nitrogen 12 mg/dL (8-26) 11 mg/dL (8-26) Creatinine 0.9 mg/dL (0.7-1.3) 1.0 mg/dL (0.7-1.3) Estimated GFR (Cockcroft-Gault) 83.9 74.3 BUN/Creatinine Ratio 13 (6-20) 11 (6-20) Glucose Level 85 mg/dL (70-99) 83 mg/dL (70-99) Calcium Level 8.2 mg/dL (8.5-10.1) 8.1 mg/dL (8.5-10.1) Total Bilirubin 0.6 mg/dL (0.2-1.0) 0.3 mg/dL (0.2-1.0) Aspartate Amino Transf (AST/SGOT) 22 U/L (15-37) 18 U/L (15-37) Alanine Aminotransferase (ALT/SGPT) 23 U/L (16-63) 21 U/L (16-63) Alkaline Phosphatase 47 U/L (46-116) 45 U/L (46-116) Total Protein 7.0 g/dL (6.4-8.2) 6.3 g/dL (6.4-8.2) Albumin 3.5 g/dL (3.4-5.0) 3.1 g/dL (3.4-5.0) Albumin/Globulin Ratio 1.0 (1.0-1.7) 1.0 (1.0-1.7) Lipase 79 U/L (73-393) Laboratory Tests Test 12/05/16 05:45 White Blood Count 5.3 x10^3/uL (4.0-11.0) Red Blood Count 4.88 x10^6/uL (4.30-5.70) Hemoglobin 14.1 g/dL (13.0-17.5) Hematocrit 42.4 % (39.0-53.0) Mean Corpuscular Volume 87 fL (79-100) Mean Corpuscular Hemoglobin 29 pg (25-35) Mean Corpuscular Hemoglobin Concent 33 g/dL (31-37) Red Cell Distribution Width 16.9 % (11.5-14.5) Platelet Count 203 x10^3/uL (140-400) Neutrophils (%) (Auto) 57 % (31-73) Lymphocytes (%) (Auto) 31 % (24-48) Monocytes (%) (Auto) 10 % (0-9) Eosinophils (%) (Auto) 1 % (0-3) Basophils (%) (Auto) 1 % (0-3) Neutrophils # (Auto) 3.0 x10^3uL (1.8-7.7) Lymphocytes # (Auto) 1.7 x10^3/uL (1.0-4.8) Monocytes # (Auto) 0.5 x10^3/uL (0.0-1.1) Eosinophils # (Auto) 0.0 x10^3/uL (0.0-0.7) Basophils # (Auto) 0.1 x10^3/uL (0.0-0.2) Sodium Level 140 mmol/L (136-145) Potassium Level 5.4 mmol/L (3.5-5.1) Chloride Level 105 mmol/L (98-107) Carbon Dioxide Level 28 mmol/L (21-32) Anion Gap 7 (6-14) Blood Urea Nitrogen 11 mg/dL (8-26) Creatinine 1.0 mg/dL (0.7-1.3) Estimated GFR (Cockcroft-Gault) 74.3 BUN/Creatinine Ratio 11 (6-20) Glucose Level 83 mg/dL (70-99) Calcium Level 8.1 mg/dL (8.5-10.1) Total Bilirubin 0.3 mg/dL (0.2-1.0) Aspartate Amino Transf (AST/SGOT) 18 U/L (15-37) Alanine Aminotransferase (ALT/SGPT) 21 U/L (16-63) Alkaline Phosphatase 45 U/L (46-116) Total Protein 6.3 g/dL (6.4-8.2) Albumin 3.1 g/dL (3.4-5.0) Albumin/Globulin Ratio 1.0 (1.0-1.7) Problem List Problems Medical Problems: (1) Hyponatremia Status: Acute (2) Intractable abdominal pain Status: Acute Assessment/Plan hyponatremia improved prostatitis -abx, pain control reviewed--no urology service available Problems: [place] DIANA MD 12/05/16 1343: SURGICAL PROGRESS NOTE Assessment/Plan Pt sleeping soundly cont w/u and tx per primary consider urology consult when available Problems: JOSEFINA FORDE APRN December 05, 2016 09:26 [place] DIANA MD December 05, 2016 13:43
[2016-12-05 11:00] VITALS: BP 102/66
[2016-12-05] MEDS: clonazePAM 0.5 MG TABLET PO SCH ×2 (11:33→16:22)
[2016-12-05] MEDS: DIVALPROEX EXTENDED RELEASE 500 MG TAB.ER.24H. PO SCH ×2 (11:34→16:22)
--- NOTE | 2016-12-05 11:42 | PDOC ---
GENERAL General: vss and afebrile. awake and alert. still complains of diffuse abdominal pain worse at site luq where has abrasion from "pulling out infected hair couple of weeks ago". ? mrsa and will add doxycycline to present coverage. Na up to normal with K+ up to 5.4. will empirically also add protonix and observe. Problems: VITAL SIGNS Vital Signs: Vital Signs Date Time Temp Pulse Resp B/P (MAP) Pulse Ox O2 Delivery O2 Flow Rate FiO2 12/05/16 11:37 14 Room Air 12/05/16 04:09 97 12/04/16 23:00 95.9 71 141/95 (110) 95.9 I & O I & O Intake and Output 12/05/16 07:00 Intake Total 350 ml Balance 350 ml Intake Oral 50 ml IV Total 300 ml # Voids 3 ALLERGIES Allergies: Allergies Coded Allergies Type Severity Reaction Last Updated Verified No Known Drug Allergies 01/23/15 No MEDS Medications: Current Medications Medications (Trade) Dose Ordered Sig/Shukri Start Time Stop Time Status Last Admin Dose Admin Acetaminophen (Tylenol) 650 mg PRN Q4HRS PRN 12/04/16 04:45 12/05/16 04:44 DC Clonazepam (KlonoPIN) 0.5 mg BIDACLD 12/04/16 11:30 12/05/16 11:33 0.5 MG Divalproex Sodium (Depakote Er) 500 mg BIDACLD 12/04/16 11:30 12/05/16 11:34 500 MG Fentanyl Citrate (Fentanyl 2ml Vial) 100 mcg 1X ONCE 12/04/16 04:30 12/04/16 04:31 DC 12/04/16 04:19 100 MCG Info (Do NOT chart on this entry -- for MONITORING) 1 each PRN DAILY PRN 12/04/16 03:15 12/06/16 03:14 Iohexol (Omnipaque 300 Mg/ml) 75 ml 1X ONCE 12/04/16 04:00 12/04/16 04:01 DC 12/04/16 03:55 75 ML Levofloxacin (Levaquin) 500 mg DAILY 12/04/16 13:00 12/15/16 12:59 12/05/16 08:05 500 MG Levothyroxine Sodium (Synthroid) 25 mcg DAILYAC 12/04/16 11:30 12/05/16 08:05 25 MCG Morphine Sulfate 4 mg PRN Q2HR PRN 12/05/16 07:30 12/05/16 11:37 4 MG Ondansetron HCl (Zofran) 4 mg PRN Q8HRS PRN 12/04/16 04:45 12/05/16 04:44 DC 12/04/16 05:22 4 MG Pantoprazole Sodium (Protonix) 40 mg DAILYAC 12/04/16 11:30 12/05/16 08:05 40 MG Prednisone (Prednisone) 5 mg DAILY 12/04/16 11:30 12/05/16 08:05 5 MG Simvastatin (Zocor) 20 mg HS 12/04/16 21:00 12/04/16 21:16 20 MG Sodium Chloride 1,000 ml @ 100 mls/hr Q10H 12/04/16 04:35 12/05/16 04:34 DC 12/04/16 22:36 100 MLS/HR Testosterone Cypionate (Depo-Testosterone) 150 mg Q2WKS 12/20/16 09:00 Venlafaxine HCl (Effexor) 50 mg TID 12/04/16 10:30 12/05/16 08:05 50 MG LAB Lab: Laboratory Tests Test 12/05/16 05:45 White Blood Count 5.3 x10^3/uL (4.0-11.0) Red Blood Count 4.88 x10^6/uL (4.30-5.70) Hemoglobin 14.1 g/dL (13.0-17.5) Hematocrit 42.4 % (39.0-53.0) Mean Corpuscular Volume 87 fL (79-100) Mean Corpuscular Hemoglobin 29 pg (25-35) Mean Corpuscular Hemoglobin Concent 33 g/dL (31-37) Red Cell Distribution Width 16.9 % (11.5-14.5) Platelet Count 203 x10^3/uL (140-400) Neutrophils (%) (Auto) 57 % (31-73) Lymphocytes (%) (Auto) 31 % (24-48) Monocytes (%) (Auto) 10 % (0-9) Eosinophils (%) (Auto) 1 % (0-3) Basophils (%) (Auto) 1 % (0-3) Neutrophils # (Auto) 3.0 x10^3uL (1.8-7.7) Lymphocytes # (Auto) 1.7 x10^3/uL (1.0-4.8) Monocytes # (Auto) 0.5 x10^3/uL (0.0-1.1) Eosinophils # (Auto) 0.0 x10^3/uL (0.0-0.7) Basophils # (Auto) 0.1 x10^3/uL (0.0-0.2) Sodium Level 140 mmol/L (136-145) Potassium Level 5.4 mmol/L (3.5-5.1) Chloride Level 105 mmol/L (98-107) Carbon Dioxide Level 28 mmol/L (21-32) Anion Gap 7 (6-14) Blood Urea Nitrogen 11 mg/dL (8-26) Creatinine 1.0 mg/dL (0.7-1.3) Estimated GFR (Cockcroft-Gault) 74.3 BUN/Creatinine Ratio 11 (6-20) Glucose Level 83 mg/dL (70-99) Calcium Level 8.1 mg/dL (8.5-10.1) Total Bilirubin 0.3 mg/dL (0.2-1.0) Aspartate Amino Transf (AST/SGOT) 18 U/L (15-37) Alanine Aminotransferase (ALT/SGPT) 21 U/L (16-63) Alkaline Phosphatase 45 U/L (46-116) Total Protein 6.3 g/dL (6.4-8.2) Albumin 3.1 g/dL (3.4-5.0) Albumin/Globulin Ratio 1.0 (1.0-1.7) DANY JERONIMO MD December 05, 2016 11:42
[2016-12-05] MEDS ORDERED: PANTOPRAZOLE 40 MG TABLET.DR. PO SCH (12:00)
[2016-12-05] MEDS: DOXYCYCLINE HYCLATE 100 MG TABLET PO SCH ×2 (12:02→21:09)
[2016-12-05 15:00] VITALS: BP 106/77
[2016-12-05 19:00] VITALS: BP 121/92
[2016-12-05] MEDS: SIMVASTATIN 20 MG TABLET PO SCH (21:09)
--- NOTE | 2016-12-05 22:38 | CONS ---
DATE OF CONSULTATION: REQUESTING PHYSICIAN: Dr. Aryan Strange REASON FOR CONSULTATION: Hyponatremia. HISTORY OF PRESENT ILLNESS: A 66-year-old gentleman with history of pituitary adenoma, hypothyroidism, hypotestosteronism, hyperlipidemia and chronic prostatitis. The patient has been on antibiotics recently in the form of Levaquin for chronic prostatitis. He developed abdominal discomfort, was admitted to the hospital after being found to have serum sodium of 123. With IV fluid administration, the serum sodium has currently normalized. Patient denies nausea, vomiting, diarrhea at this time. He was having "dry heaves" on presentation and states that his oral intake had been extremely poor for 3 days prior to admission. No history of head trauma. PAST MEDICAL HISTORY: Hypothyroidism, hyperlipidemia, pituitary adenoma, prostatitis, appendectomy. ALLERGIES: None. MEDICATIONS: Noted. FAMILY HISTORY: Noncontributory. SOCIAL HISTORY: The patient is , resides with his . REVIEW OF SYSTEMS: No headaches, sinus problem, nasal drainage, epistaxis, change in vision or hearing. No difficulty swallowing. No fever, chills, cough, sputum production, or hemoptysis. No chest pain, shortness of breath, PND, orthopnea, dyspnea on exertion. Still some abdominal discomfort. No seizures or malignancies. PHYSICAL EXAMINATION: GENERAL: The patient awake, conversant. HEENT: Clear. NECK: No increased JVD. No thyromegaly, mass, or adenopathy. LUNGS: Clear. CARDIAC: Without S3 or rub. ABDOMEN: Soft, nontender, no bruits. EXTREMITIES: Without edema. NEUROLOGIC: Nonfocal localizing. PSYCHIATRIC: Good attention to detail, appropriate affect. LABORATORY DATA: White count 6.4, hemoglobin 13, hematocrit 41%. Sodium on presentation 123, currently 140, creatinine 1, GFR 74. IMPRESSION: Hyponatremia -- resolved. RECOMMENDATIONS: Continue fluid balance and antibiotics as you are doing. We will be available as needed. KEEGAN NOLASCO MD DR: RAIN/otilia JOB#: [id number] / [id number]
[2016-12-05 23:00] VITALS: BP 177/103
[2016-12-06] VITALS (7 sets, daily range): BP systolic 99–161; BP diastolic 67–111
[2016-12-06] MEDS: MORPHINE SULFATE 4 MG/ML DISP.SYRIN. IV PRN ×8 (02:05→22:45)
[2016-12-06 05:30] LABS: CALCIUM 7.9 mg/dL (8.5-10.1); CREATININE 1.2 mg/dL (0.7-1.3); GFR 60.2; POTASSIUM 4.3 mmol/L (3.5-5.1)
[2016-12-06] MEDS: PANTOPRAZOLE 40 MG TABLET.DR. PO SCH (07:58)
[2016-12-06] MEDS: LEVOTHYROXINE 25 MCG TABLET. PO SCH (07:58)
[2016-12-06] MEDS: DOXYCYCLINE HYCLATE 100 MG TABLET PO SCH ×2 (08:01→20:42)
[2016-12-06] MEDS: predniSONE 5 MG TABLET PO SCH (08:01)
[2016-12-06] MEDS: VENLAFAXINE 50 MG TABLET. PO SCH ×3 (08:01→20:41)
[2016-12-06] MEDS: clonazePAM 0.5 MG TABLET PO SCH ×2 (12:10→17:41)
[2016-12-06] MEDS: DIVALPROEX EXTENDED RELEASE 500 MG TAB.ER.24H. PO SCH ×2 (12:11→17:41)
--- NOTE | 2016-12-06 12:24 | PDOC ---
SURGICAL PROGRESS NOTE Subjective in with pt for 15 mins, he talked continuously--conversation with him seemed to go in circles--high pain again 05/03 since they did wound care to his abdomen, made it hurt all over, made his prostatitis pain worse, his is upset with him, previous antibiotic reactions, he has shut the world out(not even watching tv), just wants the pain fixed, we said we would fix him but not----etc Vital Signs Vital Signs Date Time Temp Pulse Resp B/P (MAP) Pulse Ox O2 Delivery O2 Flow Rate FiO2 12/06/16 11:00 97.8 85 18 99/67 (78) 93 Room Air 97.8 12/06/16 04:55 94.0 I&O Intake and Output 12/06/16 06:59 Intake Total 500 ml Balance 500 ml Intake Oral 500 ml # Voids 6 General: Cooperative, No acute distress Abdomen: Soft, Other (tenderness generalized) Labs Laboratory Tests Test 12/05/16 05:45 12/06/16 03:50 White Blood Count 5.3 x10^3/uL (4.0-11.0) Red Blood Count 4.88 x10^6/uL (4.30-5.70) Hemoglobin 14.1 g/dL (13.0-17.5) Hematocrit 42.4 % (39.0-53.0) Mean Corpuscular Volume 87 fL (79-100) Mean Corpuscular Hemoglobin 29 pg (25-35) Mean Corpuscular Hemoglobin Concent 33 g/dL (31-37) Red Cell Distribution Width 16.9 % (11.5-14.5) Platelet Count 203 x10^3/uL (140-400) Neutrophils (%) (Auto) 57 % (31-73) Lymphocytes (%) (Auto) 31 % (24-48) Monocytes (%) (Auto) 10 % (0-9) Eosinophils (%) (Auto) 1 % (0-3) Basophils (%) (Auto) 1 % (0-3) Neutrophils # (Auto) 3.0 x10^3uL (1.8-7.7) Lymphocytes # (Auto) 1.7 x10^3/uL (1.0-4.8) Monocytes # (Auto) 0.5 x10^3/uL (0.0-1.1) Eosinophils # (Auto) 0.0 x10^3/uL (0.0-0.7) Basophils # (Auto) 0.1 x10^3/uL (0.0-0.2) Sodium Level 140 mmol/L (136-145) 140 mmol/L (136-145) Potassium Level 5.4 mmol/L (3.5-5.1) 4.3 mmol/L (3.5-5.1) Chloride Level 105 mmol/L (98-107) 105 mmol/L (98-107) Carbon Dioxide Level 28 mmol/L (21-32) 30 mmol/L (21-32) Anion Gap 7 (6-14) 5 (6-14) Blood Urea Nitrogen 11 mg/dL (8-26) 14 mg/dL (8-26) Creatinine 1.0 mg/dL (0.7-1.3) 1.2 mg/dL (0.7-1.3) Estimated GFR (Cockcroft-Gault) 74.3 60.2 BUN/Creatinine Ratio 11 (6-20) Glucose Level 83 mg/dL (70-99) 70 mg/dL (70-99) Calcium Level 8.1 mg/dL (8.5-10.1) 7.9 mg/dL (8.5-10.1) Total Bilirubin 0.3 mg/dL (0.2-1.0) Aspartate Amino Transf (AST/SGOT) 18 U/L (15-37) Alanine Aminotransferase (ALT/SGPT) 21 U/L (16-63) Alkaline Phosphatase 45 U/L (46-116) Total Protein 6.3 g/dL (6.4-8.2) Albumin 3.1 g/dL (3.4-5.0) Albumin/Globulin Ratio 1.0 (1.0-1.7) Laboratory Tests Test 12/06/16 03:50 Sodium Level 140 mmol/L (136-145) Potassium Level 4.3 mmol/L (3.5-5.1) Chloride Level 105 mmol/L (98-107) Carbon Dioxide Level 30 mmol/L (21-32) Anion Gap 5 (6-14) Blood Urea Nitrogen 14 mg/dL (8-26) Creatinine 1.2 mg/dL (0.7-1.3) Estimated GFR (Cockcroft-Gault) 60.2 Glucose Level 70 mg/dL (70-99) Calcium Level 7.9 mg/dL (8.5-10.1) Problem List Problems Medical Problems: (1) Hyponatremia Status: Acute (2) Intractable abdominal pain Status: Acute Assessment/Plan prostatitis continue supportive care would consider urology eval when available no surgical needs Problems: JOSEFINA FORDE APRN December 06, 2016 12:23
--- NOTE | 2016-12-06 12:45 | PDOC ---
GENERAL General: vss and afebrile. awake and alert and hard to keep on task. still with abdominal and testicular pain but some decreased. ongoing antibiotics for prostatitis and skin infection. likely dc am with some po pain meds. Problems: VITAL SIGNS Vital Signs: Vital Signs Date Time Temp Pulse Resp B/P (MAP) Pulse Ox O2 Delivery O2 Flow Rate FiO2 12/06/16 11:00 97.8 85 18 99/67 (78) 93 Room Air 97.8 12/06/16 04:55 94.0 I & O I & O Intake and Output 12/06/16 07:00 Intake Total 500 ml Balance 500 ml Intake Oral 500 ml # Voids 6 ALLERGIES Allergies: Allergies Coded Allergies Type Severity Reaction Last Updated Verified No Known Drug Allergies 01/23/15 No MEDS Medications: Current Medications Medications (Trade) Dose Ordered Sig/Shukri Start Time Stop Time Status Last Admin Dose Admin Acetaminophen (Tylenol) 650 mg PRN Q4HRS PRN 12/04/16 04:45 12/05/16 04:44 DC Clonazepam (KlonoPIN) 0.5 mg BIDACLD 12/04/16 11:30 12/06/16 12:10 0.5 MG Divalproex Sodium (Depakote Er) 500 mg BIDACLD 12/04/16 11:30 12/06/16 12:11 500 MG Doxycycline Hyclate (Vibra-Tab) 100 mg BID 12/05/16 12:00 12/06/16 08:01 100 MG Fentanyl Citrate (Fentanyl 2ml Vial) 100 mcg 1X ONCE 12/04/16 04:30 12/04/16 04:31 DC 12/04/16 04:19 100 MCG Info (Do NOT chart on this entry -- for MONITORING) 1 each PRN DAILY PRN 12/04/16 03:15 12/06/16 03:14 DC Iohexol (Omnipaque 300 Mg/ml) 75 ml 1X ONCE 12/04/16 04:00 12/04/16 04:01 DC 12/04/16 03:55 75 ML Levofloxacin (Levaquin) 500 mg DAILY 12/04/16 13:00 12/15/16 12:59 12/06/16 08:01 500 MG Levothyroxine Sodium (Synthroid) 25 mcg DAILYAC 12/04/16 11:30 12/06/16 07:58 25 MCG Morphine Sulfate 4 mg PRN Q2HR PRN 12/05/16 07:30 12/06/16 09:41 4 MG Ondansetron HCl (Zofran) 4 mg PRN Q8HRS PRN 12/04/16 04:45 12/05/16 04:44 DC 12/04/16 05:22 4 MG Pantoprazole Sodium (Protonix) 40 mg DAILYAC 12/05/16 12:00 12/05/16 12:16 DC Prednisone (Prednisone) 5 mg DAILY 12/04/16 11:30 12/06/16 08:01 5 MG Simvastatin (Zocor) 20 mg HS 12/04/16 21:00 12/05/16 21:09 20 MG Sodium Chloride 1,000 ml @ 100 mls/hr Q10H 12/04/16 04:35 12/05/16 04:34 DC 12/04/16 22:36 100 MLS/HR Testosterone Cypionate (Depo-Testosterone) 150 mg Q2WKS 12/20/16 09:00 Venlafaxine HCl (Effexor) 50 mg TID 12/04/16 10:30 12/06/16 08:01 50 MG LAB Lab: Laboratory Tests Test 12/06/16 03:50 Sodium Level 140 mmol/L (136-145) Potassium Level 4.3 mmol/L (3.5-5.1) Chloride Level 105 mmol/L (98-107) Carbon Dioxide Level 30 mmol/L (21-32) Anion Gap 5 (6-14) Blood Urea Nitrogen 14 mg/dL (8-26) Creatinine 1.2 mg/dL (0.7-1.3) Estimated GFR (Cockcroft-Gault) 60.2 Glucose Level 70 mg/dL (70-99) Calcium Level 7.9 mg/dL (8.5-10.1) DANY JERONIMO MD December 06, 2016 12:45
--- NOTE | 2016-12-06 14:56 | CONS ---
DATE OF CONSULTATION: 12/04/2016 REFERRING PHYSICIANS: Dr. Dany Greenfield, Dr. Valeriy Frias, Dr. Matt Emerson. Thank you for the consult. CHIEF COMPLAINT: Abdominal pain. DIAGNOSES: Abdominal pain, hyponatremia, possible prostatitis, hydroureter. HISTORY OF PRESENT ILLNESS: This is a 66-year-old male who reports a 1-week history of worsening abdominal pain consistent with prostatitis. He has had difficulties with prostatitis for a number of years. He was drinking a large amount of water to try to clear this and was subsequently admitted to the hospital and identified that he is significantly hyponatremic. He is seen in the hospital room. He reports diffuse abdominal pain and lower back pain and reports he does not feel like he wants to eat anything. He has a somewhat tangential speech. ALLERGIES: He has no known drug allergies. MEDICATIONS: Reviewed and are multiple, especially secondary to pituitary resection. PAST MEDICAL HISTORY: Hyperlipidemia, hypothyroidism, low testosterone, prostatitis. PAST SURGICAL HISTORY: Appendectomy and resection of pituitary adenoma. SOCIAL HISTORY: No tobacco, no significant alcohol use. FAMILY HISTORY: Noncontributory. REVIEW OF SYSTEMS: All systems reviewed and negative except for HPI. PHYSICAL EXAMINATION: GENERAL: Well-developed, well-nourished male. He has a tangential speech pattern. HEENT: Normocephalic, atraumatic. Pupils equal. Extraocular motions intact. Oropharynx clear. No mucosal injury or lesions. NECK: Supple. Trachea midline. CHEST: Bilateral chest excursion. ABDOMEN: Soft, nondistended. Mild diffuse tenderness to palpation. EXTREMITIES: No clubbing, cyanosis, or edema. IMAGING: Abdominopelvic CT demonstrates moderate atelectasis, small hiatal hernia, hepatic cyst, mild bilateral hydroureter, moderate colonic stool volume, diverticulosis, but no diverticulitis. LABORATORY DATA: White blood cell count is 6.4. He is hyponatremic at 123. Urinalysis is unremarkable. IMPRESSION AND RECOMMENDATIONS: A 66-year-old male with abdominal pain, most likely secondary to his hydroureter, which is most likely secondary to his prostatitis. I certainly agree with obtaining Urology consultation and Nephrology consultation. Unlikely that he will require general surgical intervention, but I will follow along for possible intervention. Thank you for allowing participation in the care of this pleasant patient. [place] DIANA MD DR: JOVITA/oitlia JOB#: [id number] / [id number] DANY Jo MD, MICHAEL MD TURNER, MATTHEW DO MTDD
[2016-12-06] MEDS: SIMVASTATIN 20 MG TABLET PO SCH (20:41)
[2016-12-07] MEDS: MORPHINE SULFATE 4 MG/ML DISP.SYRIN. IV PRN ×4 (02:00→20:36)
[2016-12-07 03:00] VITALS: BP 152/103
[2016-12-07] MEDS: PANTOPRAZOLE 40 MG TABLET.DR. PO SCH (06:07)
[2016-12-07] MEDS: LEVOTHYROXINE 25 MCG TABLET. PO SCH (06:07)
[2016-12-07 07:00] VITALS: BP 126/93
[2016-12-07] MEDS ORDERED: HYDROcodone/APAP 5/325MG 1 TAB TABLET PO PRN (08:15)
--- NOTE | 2016-12-07 08:38 | PDOC ---
GENERAL General: vss and afebrile. awake and alert and accelerated anxiety this am. has developed shingles LLQ that probably explains all of pain. will start xanax, acyclovir, and po pain meds. explained all to patient. Problems: VITAL SIGNS Vital Signs: Vital Signs Date Time Temp Pulse Resp B/P (MAP) Pulse Ox O2 Delivery O2 Flow Rate FiO2 12/07/16 07:00 98.1 74 19 126/93 (104) 93 Room Air 98.1 12/07/16 02:00 94.0 I & O I & O Intake and Output 12/07/16 07:00 Intake Total 730 ml Balance 730 ml Intake Oral 730 ml # Voids 2 ALLERGIES Allergies: Allergies Coded Allergies Type Severity Reaction Last Updated Verified No Known Drug Allergies 01/23/15 No MEDS Medications: Current Medications Medications (Trade) Dose Ordered Sig/Shukri Start Time Stop Time Status Last Admin Dose Admin Acetaminophen (Tylenol) 650 mg PRN Q4HRS PRN 12/04/16 04:45 12/05/16 04:44 DC Acetaminophen/ Hydrocodone Bitart (Lortab 5/325) 2 tab PRN Q4HRS PRN 12/07/16 08:15 Acyclovir (Zovirax) 800 mg 5XDAY 12/07/16 10:00 Alprazolam (Xanax) 0.5 mg PRN Q8HRS PRN 12/07/16 08:15 Clonazepam (KlonoPIN) 0.5 mg BIDACLD 12/04/16 11:30 12/06/16 17:41 0.5 MG Divalproex Sodium (Depakote Er) 500 mg BIDACLD 12/04/16 11:30 12/06/16 17:41 500 MG Doxycycline Hyclate (Vibra-Tab) 100 mg BID 12/05/16 12:00 12/06/16 20:42 100 MG Fentanyl Citrate (Fentanyl 2ml Vial) 100 mcg 1X ONCE 12/04/16 04:30 12/04/16 04:31 DC 12/04/16 04:19 100 MCG Info (Do NOT chart on this entry -- for MONITORING) 1 each PRN DAILY PRN 12/04/16 03:15 12/06/16 03:14 DC Iohexol (Omnipaque 300 Mg/ml) 75 ml 1X ONCE 12/04/16 04:00 12/04/16 04:01 DC 12/04/16 03:55 75 ML Levofloxacin (Levaquin) 500 mg DAILY 12/04/16 13:00 12/15/16 12:59 12/06/16 08:01 500 MG Levothyroxine Sodium (Synthroid) 25 mcg DAILYAC 12/04/16 11:30 12/07/16 06:07 25 MCG Morphine Sulfate 4 mg PRN Q2HR PRN 12/05/16 07:30 12/07/16 06:07 4 MG Ondansetron HCl (Zofran) 4 mg PRN Q8HRS PRN 12/04/16 04:45 12/05/16 04:44 DC 12/04/16 05:22 4 MG Pantoprazole Sodium (Protonix) 40 mg DAILYAC 12/05/16 12:00 12/05/16 12:16 DC Prednisone (Prednisone) 5 mg DAILY 12/04/16 11:30 12/06/16 08:01 5 MG Simvastatin (Zocor) 20 mg HS 12/04/16 21:00 12/06/16 20:41 20 MG Sodium Chloride 1,000 ml @ 100 mls/hr Q10H 12/04/16 04:35 12/05/16 04:34 DC 12/04/16 22:36 100 MLS/HR Testosterone Cypionate (Depo-Testosterone) 150 mg Q2WKS 12/20/16 09:00 Venlafaxine HCl (Effexor) 50 mg TID 12/04/16 10:30 12/06/16 20:41 50 MG DANY JERONIMO MD December 07, 2016 08:38
[2016-12-07] MEDS: VENLAFAXINE 50 MG TABLET. PO SCH ×3 (08:58→20:33)
[2016-12-07] MEDS: DOXYCYCLINE HYCLATE 100 MG TABLET PO SCH ×2 (08:58→20:34)
[2016-12-07] MEDS: ACYCLOVIR 200 MG CAPSULE. PO SCH ×4 (08:58→20:34)
[2016-12-07] MEDS: predniSONE 5 MG TABLET PO SCH (08:58)
[2016-12-07] MEDS: HYDROcodone/APAP 5/325MG 1 TAB TABLET PO PRN ×2 (08:59→18:22)
[2016-12-07] MEDS: ALPRAZolam 0.5 MG TABLET PO PRN ×2 (08:59→20:35)
[2016-12-07 10:52] VITALS: BP 100/70
[2016-12-07] MEDS: DIVALPROEX EXTENDED RELEASE 500 MG TAB.ER.24H. PO SCH ×2 (12:12→18:18)
[2016-12-07] MEDS: clonazePAM 0.5 MG TABLET PO SCH ×2 (12:13→18:18)
[2016-12-07 15:00] VITALS: BP 132/85
[2016-12-07 19:00] VITALS: BP 100/76
[2016-12-07] MEDS: SIMVASTATIN 20 MG TABLET PO SCH (20:34)
[2016-12-07 22:34] VITALS: BP 103/81
[2016-12-08] MEDS: HYDROcodone/APAP 5/325MG 1 TAB TABLET PO PRN ×5 (02:19→20:47)
[2016-12-08] MEDS: ALPRAZolam 0.5 MG TABLET PO PRN (02:19)
[2016-12-08 03:00] VITALS: BP 120/79
[2016-12-08] MEDS: PANTOPRAZOLE 40 MG TABLET.DR. PO SCH (05:17)
[2016-12-08] MEDS: LEVOTHYROXINE 25 MCG TABLET. PO SCH (05:18)
[2016-12-08] MEDS: ACYCLOVIR 200 MG CAPSULE. PO SCH ×5 (05:18→20:46)
[2016-12-08 07:00] VITALS: BP 144/75
[2016-12-08] MEDS: DOXYCYCLINE HYCLATE 100 MG TABLET PO SCH ×2 (08:08→20:46)
[2016-12-08] MEDS: VENLAFAXINE 50 MG TABLET. PO SCH ×3 (08:08→20:46)
[2016-12-08] MEDS: predniSONE 5 MG TABLET PO SCH (08:08)
--- NOTE | 2016-12-08 08:42 | PDOC ---
GENERAL General: vss and afebrile. awake and alert. I don't believe he is suicidal. shingles counter tender. will await psych eval with plans to follow. Problems: VITAL SIGNS Vital Signs: Vital Signs Date Time Temp Pulse Resp B/P (MAP) Pulse Ox O2 Delivery O2 Flow Rate FiO2 12/08/16 08:07 Room Air 12/08/16 03:00 98.2 61 20 120/79 (93) 96 98.2 12/07/16 20:36 94.0 I & O I & O Intake and Output 12/08/16 07:00 Intake Total 850 ml Balance 850 ml Intake Oral 850 ml # Voids 1 # Bowel Movements 1 ALLERGIES Allergies: Allergies Coded Allergies Type Severity Reaction Last Updated Verified No Known Drug Allergies 01/23/15 No MEDS Medications: Current Medications Medications (Trade) Dose Ordered Sig/Shukri Start Time Stop Time Status Last Admin Dose Admin Acetaminophen (Tylenol) 650 mg PRN Q4HRS PRN 12/04/16 04:45 12/05/16 04:44 DC Acetaminophen/ Hydrocodone Bitart (Lortab 5/325) 2 tab PRN Q4HRS PRN 12/07/16 08:15 12/08/16 08:07 2 TAB Acyclovir (Zovirax) 800 mg 5XDAY 12/07/16 10:00 12/08/16 05:18 800 MG Alprazolam (Xanax) 0.5 mg PRN Q8HRS PRN 12/07/16 08:15 12/08/16 02:19 0.5 MG Clonazepam (KlonoPIN) 0.5 mg BIDACLD 12/04/16 11:30 12/07/16 18:18 0.5 MG Divalproex Sodium (Depakote Er) 500 mg BIDACLD 12/04/16 11:30 12/07/16 18:18 500 MG Doxycycline Hyclate (Vibra-Tab) 100 mg BID 12/05/16 12:00 12/08/16 08:08 100 MG Fentanyl Citrate (Fentanyl 2ml Vial) 100 mcg 1X ONCE 12/04/16 04:30 12/04/16 04:31 DC 12/04/16 04:19 100 MCG Info (Do NOT chart on this entry -- for MONITORING) 1 each PRN DAILY PRN 12/04/16 03:15 12/06/16 03:14 DC Iohexol (Omnipaque 300 Mg/ml) 75 ml 1X ONCE 12/04/16 04:00 12/04/16 04:01 DC 12/04/16 03:55 75 ML Levofloxacin (Levaquin) 500 mg DAILY 12/04/16 13:00 12/15/16 12:59 12/08/16 08:08 500 MG Levothyroxine Sodium (Synthroid) 25 mcg DAILYAC 12/04/16 11:30 12/08/16 05:18 25 MCG Morphine Sulfate 4 mg PRN Q2HR PRN 12/05/16 07:30 12/07/16 20:36 4 MG Ondansetron HCl (Zofran) 4 mg PRN Q8HRS PRN 12/04/16 04:45 12/05/16 04:44 DC 12/04/16 05:22 4 MG Pantoprazole Sodium (Protonix) 40 mg DAILYAC 12/05/16 12:00 12/05/16 12:16 DC Prednisone (Prednisone) 5 mg DAILY 12/04/16 11:30 12/08/16 08:08 5 MG Simvastatin (Zocor) 20 mg HS 12/04/16 21:00 12/07/16 20:34 20 MG Sodium Chloride 1,000 ml @ 100 mls/hr Q10H 12/04/16 04:35 12/05/16 04:34 DC 12/04/16 22:36 100 MLS/HR Testosterone Cypionate (Depo-Testosterone) 150 mg Q2WKS 12/20/16 09:00 Venlafaxine HCl (Effexor) 50 mg TID 12/04/16 10:30 12/08/16 08:08 50 MG DANY JERONIMO MD December 08, 2016 08:42
[2016-12-08 11:00] VITALS: BP 142/90
[2016-12-08] MEDS: DIVALPROEX EXTENDED RELEASE 500 MG TAB.ER.24H. PO SCH ×2 (11:46→16:44)
[2016-12-08] MEDS: clonazePAM 0.5 MG TABLET PO SCH ×2 (11:46→16:43)
[2016-12-08 15:00] VITALS: BP 114/66
[2016-12-08 19:00] VITALS: BP 110/66
[2016-12-08] MEDS: SIMVASTATIN 20 MG TABLET PO SCH (20:46)
[2016-12-08 23:00] VITALS: BP 120/81
[2016-12-09] MEDS: HYDROcodone/APAP 5/325MG 1 TAB TABLET PO PRN ×2 (02:36→08:09)
[2016-12-09] MEDS: LEVOTHYROXINE 25 MCG TABLET. PO SCH (05:37)
[2016-12-09] MEDS: PANTOPRAZOLE 40 MG TABLET.DR. PO SCH (05:37)
[2016-12-09] MEDS: ACYCLOVIR 200 MG CAPSULE. PO SCH ×2 (05:38→09:52)
[2016-12-09 07:00] VITALS: BP 125/85
[2016-12-09] MEDS: DOXYCYCLINE HYCLATE 100 MG TABLET PO SCH (08:43)
[2016-12-09] MEDS: predniSONE 5 MG TABLET PO SCH (08:44)
[2016-12-09] MEDS: VENLAFAXINE 50 MG TABLET. PO SCH (08:46)
--- NOTE | 2016-12-09 08:49 | PDOC ---
GENERAL General: see discharge summary. Problems: VITAL SIGNS Vital Signs: Vital Signs Date Time Temp Pulse Resp B/P (MAP) Pulse Ox O2 Delivery O2 Flow Rate FiO2 12/09/16 08:09 18 12/09/16 03:30 95 Room Air 12/08/16 23:00 96.2 54 120/81 (94) 96.2 I & O I & O Intake and Output 12/09/16 07:00 Intake Total 1210 ml Output Total 3 ml Balance 1207 ml Intake Oral 1210 ml Output Urine Total 3 ml # Voids 9 ALLERGIES Allergies: Allergies Coded Allergies Type Severity Reaction Last Updated Verified No Known Drug Allergies 01/23/15 No MEDS Medications: Current Medications Medications (Trade) Dose Ordered Sig/Shukri Start Time Stop Time Status Last Admin Dose Admin Acetaminophen (Tylenol) 650 mg PRN Q4HRS PRN 12/04/16 04:45 12/05/16 04:44 DC Acetaminophen/ Hydrocodone Bitart (Lortab 5/325) 2 tab PRN Q4HRS PRN 12/07/16 08:15 12/09/16 08:09 2 TAB Acyclovir (Zovirax) 800 mg 5XDAY 12/07/16 10:00 12/09/16 05:38 800 MG Alprazolam (Xanax) 0.5 mg PRN Q8HRS PRN 12/07/16 08:15 12/08/16 02:19 0.5 MG Clonazepam (KlonoPIN) 0.5 mg BIDACLD 12/04/16 11:30 12/08/16 16:43 0.5 MG Divalproex Sodium (Depakote Er) 500 mg BIDACLD 12/04/16 11:30 12/08/16 16:44 500 MG Doxycycline Hyclate (Vibra-Tab) 100 mg BID 12/05/16 12:00 12/09/16 08:43 100 MG Fentanyl Citrate (Fentanyl 2ml Vial) 100 mcg 1X ONCE 12/04/16 04:30 12/04/16 04:31 DC 12/04/16 04:19 100 MCG Info (Do NOT chart on this entry -- for MONITORING) 1 each PRN DAILY PRN 12/04/16 03:15 12/06/16 03:14 DC Iohexol (Omnipaque 300 Mg/ml) 75 ml 1X ONCE 12/04/16 04:00 12/04/16 04:01 DC 12/04/16 03:55 75 ML Levofloxacin (Levaquin) 500 mg DAILY 12/04/16 13:00 12/15/16 12:59 12/09/16 08:43 500 MG Levothyroxine Sodium (Synthroid) 25 mcg DAILYAC 12/04/16 11:30 12/09/16 05:37 25 MCG Morphine Sulfate 4 mg PRN Q2HR PRN 12/05/16 07:30 12/07/16 20:36 4 MG Ondansetron HCl (Zofran) 4 mg PRN Q8HRS PRN 12/04/16 04:45 12/05/16 04:44 DC 12/04/16 05:22 4 MG Pantoprazole Sodium (Protonix) 40 mg DAILYAC 12/05/16 12:00 12/05/16 12:16 DC Prednisone (Prednisone) 5 mg DAILY 12/04/16 11:30 12/09/16 08:44 5 MG Simvastatin (Zocor) 20 mg HS 12/04/16 21:00 12/08/16 20:46 20 MG Sodium Chloride 1,000 ml @ 100 mls/hr Q10H 12/04/16 04:35 12/05/16 04:34 DC 12/04/16 22:36 100 MLS/HR Testosterone Cypionate (Depo-Testosterone) 150 mg Q2WKS 12/20/16 09:00 Venlafaxine HCl (Effexor) 50 mg TID 12/04/16 10:30 12/09/16 08:46 50 MG DANY JERONIMO MD December 09, 2016 08:49
[2016-12-09 11:00] VITALS: BP 101/52
[2016-12-09] MEDS: clonazePAM 0.5 MG TABLET PO SCH (11:24)
[2016-12-09] MEDS: DIVALPROEX EXTENDED RELEASE 500 MG TAB.ER.24H. PO SCH (11:25)
--- NOTE | 2016-12-09 23:28 | DS ---
DATE OF DISCHARGE: 12/09/2016 PRIMARY DIAGNOSES: Abdominal pain due to right lower quadrant and back shingles appearing 3 days into the hospitalization. ADDITIONAL DIAGNOSES: 1. Unexplained hyponatremia on admission, resolved. 2. History of pituitary adenoma. 3. Depression. 4. Low testosterone due pituitary problems. 5. Low cortisol due to pituitary problems ____ prednisone per Endocrinology at . CHIEF COMPLAINT AND HISTORY OF PRESENT ILLNESS: This is a 66-year-old white male who is well known to me from followup in the office. He presented to the Emergency Room with severe abdominal pain on the day of admission. He was admitted for the same with negative CT abdomen and pelvis in the Emergency Room. He was also quite hyponatremic. SUMMARY OF STAY: The patient was admitted with IV fluids, hyponatremia resolve and is not a problem during this stay. He did have some physiatric issues during this stay suggesting some suicidal type thoughts and this was ____ felt to be a risk at the time of discharge. Approximately the third day of admission, shingles occurred on his lower abdomen. He was started on acyclovir for the same, transitioned from IV pain medicines to oral hydrocodone and was felt he could be dismissed safely on the day of discharge and this was accomplished. DISPOSITION: The patient is discharged to home. DIET: Regular diet. ACTIVITY: As tolerated. FOLLOWUP: Office in 2 weeks. DISCHARGE MEDICATIONS: All his regular home meds plus acyclovir 800 mg 5 times a day for the next 5 days as well as [place] 5/325 one every 4-6 hours p.r.n. pain. DANY JERONIMO MD DR: RANDI/otilia JOB#: [id number] / [id number]
[2016-12-20] MEDS ORDERED: TESTOSTERONE CYPIONATE 200 MG/ML VIAL. IM SCH (09:00)
== END 2016-12-09 12:46 | disposition home or self-care (01) | DRG 596 ==
LOC: ER 02:28 → 5 NORTH 04:37
PROVIDERS: ADMIT Family Medicine; ATTEND Family Medicine
DX: B02.9 Zoster without complications (principal); E87.1 Hypo-osmolality and hyponatremia; N13.4 Hydroureter; E03.9 Hypothyroidism, unspecified; E78.00 Pure hypercholesterolemia, unspecified; E78.5 Hyperlipidemia, unspecified; F32.9 Major depressive disorder, single episode, unspecified; K44.9 Diaphragmatic hernia without obstruction or gangrene; K57.30 Diverticulosis of large intestine without perforation or abscess without bleeding; K76.89 Other specified diseases of liver; N41.1 Chronic prostatitis; N50.819 Testicular pain, unspecified; Z90.49 Acquired absence of other specified parts of digestive tract
CPT/HCPCS: 36415; 74177; 80048; 80053; 81001; 83690; 85027; 96361; 96374; 96375; 96376; J2270; J2405; J3010; J7030; J7512; Q9967; 99285-25

== ENCOUNTER 2016-12-17 07:12 | Emergency (ER) | payer MEDICARE, OTHER ==
[~2016-12-17] VITALS: Ht 182.9 cm; Wt 81.6 kg
[~2016-12-17 07:12] MED LIST: CLON0.5T3 PO; DIVA500T17 PO; LANS30CA PO; LEVO25TA52 PO; PRED2.5T PO; SIMV20TA3 PO; TEST200V3 IM; VENL150C PO
--- NOTE | 2016-12-17 07:51 | PHYS DOC ---
Past Medical History Past Medical History: Other Additional Past Medical Histor: SHINGLES, PROSTATITS Past Surgical History: Appendectomy Additional Past Surgical Histo: BRAIN TUMOR REMOVED Alcohol Use: None Drug Use: None Adult General Chief Complaint Chief Complaint: ABDOMINAL PAIN HPI HPI Patient is a 66 year old male presents to the emergency department with generalized abdominal pain. Patient states he was admitted here last week for hyponatremia and prostatitis. He state he went home and took one dose of his levaquin and started having increase pain and discomfort. He states the pain moves around in his abdomen and is 10/10 patient states he has not had a bowel movement for 6 days. He states he tried something this morning without relief. He denies fever, chills, nausea or vomiting. He states his PCP is Dr Greenfield. Review of Systems Review of Systems Constitutional: Denies fever or chills [] Eyes: Denies change in visual acuity, redness, or eye pain [] HENT: Denies nasal congestion or sore throat [] Respiratory: Denies cough or shortness of breath [] Cardiovascular: No additional information not addressed in HPI [] GI: abdominal pain, constipation. denies nausea, vomiting, bloody stools or diarrhea [] : Denies dysuria or hematuria [] Musculoskeletal: Denies back pain or joint pain [] Integument: Denies rash or skin lesions [] Neurologic: Denies headache, focal weakness or sensory changes [] Endocrine: Denies polyuria or polydipsia [] Current Medications Current Medications Current Medications Medications (Trade) Dose Ordered Sig/Shukri Start Time Stop Time Status Last Admin Dose Admin Fentanyl Citrate (Fentanyl 2ml Vial) 50 mcg 1X ONCE 12/17/16 10:00 12/17/16 10:01 DC Iohexol (Omnipaque 240 Mg/ml) 50 ml 1X ONCE 12/17/16 08:00 12/17/16 08:01 DC 12/17/16 08:00 50 ML Iohexol (Omnipaque 300 Mg/ml) 75 ml 1X ONCE 12/17/16 08:00 12/17/16 08:01 DC 12/17/16 09:02 75 ML Allergies Allergies Allergies Coded Allergies Type Severity Reaction Last Updated Verified No Known Drug Allergies 01/23/15 No Physical Exam Physical Exam Constitutional: Well developed, well nourished, no acute distress, non-toxic appearance. [] HENT: Normocephalic, atraumatic, bilateral external ears normal, oropharynx moist, no oral exudates, nose normal. [] Eyes: PERRLA, EOMI, conjunctiva normal, no discharge. [] Neck: Normal range of motion, no tenderness, supple, no stridor. [] Cardiovascular:Heart rate regular rhythm, no murmur [] Lungs & Thorax: Bilateral breath sounds clear to auscultation [] Abdomen: Bowel sounds hypoactive, soft, generalized tenderness, no masses, no pulsatile masses. [] Skin: Warm, dry, no erythema, no rash. [] Back: No tenderness Extremities: No tenderness, no cyanosis, no clubbing, ROM intact, no edema. [] Neurologic: Alert and oriented X 3, normal motor function, normal sensory function, no focal deficits noted. [] Psychologic: Affect normal, judgement normal, mood normal. [] Current Patient Data Vital Signs Vital Signs Date Time Temp Pulse Resp B/P (MAP) Pulse Ox O2 Delivery O2 Flow Rate FiO2 12/17/16 07:25 98.2 61 20 217/119 (151) 98 Room Air 98.2 Lab Values Laboratory Tests Test 12/17/16 07:25 12/17/16 07:49 White Blood Count 7.3 x10^3/uL (4.0-11.0) Red Blood Count 4.83 x10^6/uL (4.30-5.70) Hemoglobin 14.0 g/dL (13.0-17.5) Hematocrit 42.5 % (39.0-53.0) Mean Corpuscular Volume 88 fL (79-100) Mean Corpuscular Hemoglobin 29 pg (25-35) Mean Corpuscular Hemoglobin Concent 33 g/dL (31-37) Red Cell Distribution Width 16.8 % (11.5-14.5) H Platelet Count 201 x10^3/uL (140-400) Neutrophils (%) (Auto) 51 % (31-73) Lymphocytes (%) (Auto) 42 % (24-48) Monocytes (%) (Auto) 5 % (0-9) Eosinophils (%) (Auto) 0 % (0-3) Basophils (%) (Auto) 1 % (0-3) Neutrophils # (Auto) 3.7 x10^3uL (1.8-7.7) Lymphocytes # (Auto) 3.1 x10^3/uL (1.0-4.8) Monocytes # (Auto) 0.4 x10^3/uL (0.0-1.1) Eosinophils # (Auto) 0.0 x10^3/uL (0.0-0.7) Basophils # (Auto) 0.1 x10^3/uL (0.0-0.2) Sodium Level 135 mmol/L (136-145) L Potassium Level 3.6 mmol/L (3.5-5.1) Chloride Level 98 mmol/L (98-107) Carbon Dioxide Level 32 mmol/L (21-32) Anion Gap 5 (6-14) L Blood Urea Nitrogen 11 mg/dL (8-26) Creatinine 1.1 mg/dL (0.7-1.3) Estimated GFR (Cockcroft-Gault) 66.6 BUN/Creatinine Ratio 10 (6-20) Glucose Level 85 mg/dL (70-99) Calcium Level 8.0 mg/dL (8.5-10.1) L Total Bilirubin 0.3 mg/dL (0.2-1.0) Aspartate Amino Transferase (AST) 25 U/L (15-37) Alanine Aminotransferase (ALT) 27 U/L (16-63) Alkaline Phosphatase 52 U/L (46-116) Total Protein 7.3 g/dL (6.4-8.2) Albumin 3.6 g/dL (3.4-5.0) Albumin/Globulin Ratio 1.0 (1.0-1.7) Urine Collection Type Unknown Urine Color Yellow Urine Clarity Clear Urine pH 7.5 Urine Specific [place] <=1.005 Urine Protein Negative mg/dL (NEG-TRACE) Urine Glucose (UA) Negative mg/dL (NEG) Urine Ketones (Stick) Negative mg/dL (NEG) Urine Blood Negative (NEG) Urine Nitrite Negative (NEG) Urine Bilirubin Negative (NEG) Urine Urobilinogen Dipstick 0.2 mg/dL (0.2 mg/dL) Urine Leukocyte Esterase Negative (NEG) Urine RBC 0 /HPF (0-2) Urine WBC Occ /HPF (0-4) Urine Bacteria 0 /HPF (0-FEW) Laboratory Tests 12/17/16 07:25 Laboratory Tests 12/17/16 07:25 EKG EKG [] Radiology/Procedures Radiology/Procedures [[facility] [address] [place] [address] IMAGING REPORT Signed PATIENT: HANNY LEE ACCOUNT: [id number] : 1950 LOCATION: ER AGE: 66 SEX: M EXAM STATUS: REG ER ORD. PHYSICIAN: JOHNNIE SANCHEZ APRN REASON: generalized abdominal pain with no BM x 6 days PROCEDURE: CT ABD PELV W/ORAL&IV CONTRAST Indication abdominal pain. Axial images of the abdomen and pelvis were obtained. Both oral and IV contrast were administered. Approximately 75 cc of Omnipaque 300 was administered intravenously. Note is made of a prior CT examination of the abdomen and pelvis 13 days ago. There is volume loss at the lung bases likely reflecting atelectasis or scar. The appearance is similar to the previous exam. There is a small hiatus hernia. An acute finding involving the liver is not seen. Occasional low density masses are identified compatible with cysts similar to the previous exam. The spleen appears unremarkable. The gallbladder is grossly normal. No pancreatic or adrenal pathology is seen. The kidneys appear unremarkable. Minimal hydroureter is seen appearing similar to the prior study. An acute finding in the abdomen is not seen. In the pelvis occasional colonic diverticula are noted. No active inflammation is seen. Acute finding in the pelvis is not apparent. The prostate is mildly enlarged. IMPRESSION: No acute finding seen in the abdomen or pelvis. No significant change compared to the exam 13 days earlier PQRS Compliance Statement: One or more of the following individualized dose reduction techniques were utilized for this examination: 1. Automated exposure control 2. Adjustment of the mA and/or kV according to patient size 3. Use of iterative reconstruction technique DICTATED and SIGNED BY: MAEGAN MOSHER MD DATE: 12/17/16924 CC: DANY GREENFIELD MD; OJHNNIE SANCHEZ APRN; NON,STAFF ~ ] Course & Med Decision Making Course & Med Decision Making Pertinent Labs and Imaging studies reviewed. (See chart for details) [address] Greenfield as all labs and CT came back normal, he recommended that patient be discharged home and followup next week in the office. Patient will be discharged home in stable condition. Patient is concerned with Levaquin not being correctly filled by pharmacy patient had his pill bottle here with medication identified as Levaquin 500. Patient was provided with discharge instructions, treatment regimen and followup recommendations. Signs and symptoms to return to emergency department have been provided. 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 [] Dragon Disclaimer Dragon Disclaimer This electronic medical record was generated, in whole or in part, using a voice recognition dictation system. Departure Departure Impression: Primary Impression: Abdominal pain Disposition: HOME, SELF-CARE Condition: STABLE Referrals: DANY GREENFIELD MD (PCP) Patient Instructions: Abdominal Pain Additional Instructions: Activity as tolerated The medication you have in your pill is Levaquin 500 mg. continue this medication as prescribed Continue your home medication as prescribed Clear liquid diet for the next 24 hours Followup with your primary care provider in 3-5 days Return to emergency department as needed for signs and symptoms that become worse JOHNNIE SANCHEZ GLUE MACHINE OPERATOR December 17, 2016 07:51
[2016-12-17 07:58] LABS: BASO # 0.1 x10^3/uL (0.0-0.2); BASO % 1 % (0-3); EOS % 0 % (0-3); HEMATOCRIT 42.5 % (39.0-53.0); LYMPH # 3.1 x10^3/uL (1.0-4.8); LYMPH % 42 % (24-48); MEAN CORPUSCULAR HEMOGLOBIN 29 pg (25-35); MEAN CORPUSCULAR HGB CONC 33 g/dL (31-37); MEAN CORPUSCULAR VOLUME 88 fL (79-100); MONO % 5 % (0-9); NEUT % 51 % (31-73); PLATELET COUNT 201 x10^3/uL (140-400); RED BLOOD COUNT 4.83 x10^6/uL (4.30-5.70); RED CELL DISTRIBUTION WIDTH 16.8 % (11.5-14.5); WHITE BLOOD COUNT 7.3 x10^3/uL (4.0-11.0)
[2016-12-17] MEDS ORDERED: IOHEXOL 240 MG/ML 50ML VIAL. PO ONE (08:00)
[2016-12-17] MEDS ORDERED: IOHEXOL 300 MG/ML 75 ML VIAL IV ONE (08:00)
[2016-12-17 08:01] LABS: BILIRUBIN,URINE NEGATIVE (NEG); GLUCOSE,URINE NEGATIVE (NEG); NITRITE,URINE NEGATIVE (NEG); PH,URINE 7.5; PROTEIN,URINE NEGATIVE (NEG-TRACE); UROBILINOGEN,URINE 0.2 mg/dL (0.2 mg/dL)
[2016-12-17 08:03] LABS: CREATININE 1.1 mg/dL (0.7-1.3); GFR 66.6; POTASSIUM 3.6 mmol/L (3.5-5.1)
[2016-12-17 08:12] LABS: ALBUMIN 3.6 g/dL (3.4-5.0); TOTAL BILIRUBIN 0.3 mg/dL (0.2-1.0); TOTAL PROTEIN 7.3 g/dL (6.4-8.2)
[2016-12-17 08:17] LABS: BACTERIA,URINE 0 /HPF (0-FEW); RBC,URINE 0 /HPF (0-2); WBC,URINE OCC /HPF (0-4)
--- NOTE | 2016-12-17 09:36 | RAD ---
Indication abdominal pain. Axial images of the abdomen and pelvis were obtained. Both oral and IV contrast were administered. Approximately 75 cc of Omnipaque 300 was administered intravenously. Note is made of a prior CT examination of the abdomen and pelvis 13 days ago. There is volume loss at the lung bases likely reflecting atelectasis or scar. The appearance is similar to the previous exam. There is a small hiatus hernia. An acute finding involving the liver is not seen. Occasional low density masses are identified compatible with cysts similar to the previous exam. The spleen appears unremarkable. The gallbladder is grossly normal. No pancreatic or adrenal pathology is seen. The kidneys appear unremarkable. Minimal hydroureter is seen appearing similar to the prior study. An acute finding in the abdomen is not seen. In the pelvis occasional colonic diverticula are noted. No active inflammation is seen. Acute finding in the pelvis is not apparent. The prostate is mildly enlarged. IMPRESSION: No acute finding seen in the abdomen or pelvis. No significant change compared to the exam 13 days earlier PQRS Compliance Statement: One or more of the following individualized dose reduction techniques were utilized for this examination: 1. Automated exposure control 2. Adjustment of the mA and/or kV according to patient size 3. Use of iterative reconstruction technique
[2016-12-17] MEDS ORDERED: fentaNYL PF VIAL 100 MCG/2 ML VIAL IV ONE (10:00)
[2016-12-17 10:30] VITALS: BP 154/92
[2016-12-17] MEDS ORDERED: MORP15TA PO (17:55)
[2016-12-18] MEDS ORDERED: HYDR-2666 PO (00:22)
== END 2016-12-17 10:40 | disposition home or self-care (01) ==
LOC: ER 08:00
DX: R10.84 Generalized abdominal pain (principal); K59.00 Constipation, unspecified
CPT/HCPCS: 36415; 74177; 80053; 81001; 85027; 96374; 99285; J3010; Q9966; Q9967

== ENCOUNTER 2016-12-17 15:59 | Inpatient (IN) | payer MEDICARE, OTHER ==
[~2016-12-17] VITALS: Ht 182.9 cm; Wt 81.2 kg
[2016-12-17] MEDS ORDERED: MORP15TA PO (17:55)
--- NOTE | 2016-12-17 17:55 | PHYS DOC ---
Past Medical History Past Medical History: Anxiety, High Cholesterol, Hypothyroid, Other Additional Past Medical Histor: SHINGLES, PROSTATITS Past Surgical History: Appendectomy Additional Past Surgical Histo: BRAIN TUMOR REMOVED Alcohol Use: None Drug Use: None Adult General Chief Complaint Chief Complaint: ABDOMINAL PAIN HPI HPI 58-year-old male presenting to the emergency department today after being seen earlier this morning. He complains of generalized abdominal pain mainly along the superficial skin areas where he has a rash from shingles. He is currently undergoing therapy for acute prostatitis on Levaquin therapy. His pain is been present for about a week it is moderate nonradiating intermittent and without alleviating factors. He denies fevers or chills. He reports urinating approximate 4 hours ago. Review of systems is negative for shortness of breath nausea vomiting diarrhea. All other review of systems is negative unless otherwise noted in history of present illness. Review of Systems Review of Systems SEE ABOVE. Allergies Allergies Allergies Coded Allergies Type Severity Reaction Last Updated Verified No Known Drug Allergies 01/23/15 No Physical Exam Physical Exam Constitutional: Well developed, well nourished, no acute distress, non-toxic appearance. HENT: Normocephalic, atraumatic, bilateral external ears normal, oropharynx moist, no oral exudates, nose normal. [] Eyes: PERRLA, EOMI, conjunctiva normal, no discharge. Neck: Normal range of motion, no tenderness, supple, no stridor. [] Cardiovascular:Heart rate regular rhythm, no murmur Lungs & Thorax: Bilateral breath sounds clear to auscultation [] Abdomen: Bowel sounds normal, soft, no tenderness, no masses, no pulsatile masses. Negative McBurney's point. Negative Mills sign. The patient has a dermatomal rash along the right side that is maculopapular consistent with zoster. Skin: Warm, dry, no erythema, no rash. [] Back: No tenderness, no CVA tenderness. Extremities: No tenderness, no cyanosis, no clubbing, ROM intact, no edema. Neurologic: Alert and oriented X 3, normal motor function, normal sensory function, no focal deficits noted. [] Psychologic: Affect normal, judgement normal, mood normal. [] Current Patient Data Vital Signs Vital Signs Date Time Temp Pulse Resp B/P (MAP) Pulse Ox O2 Delivery O2 Flow Rate FiO2 12/17/16 16:35 97.7 70 18 165/79 (107) 98 Room Air 97.7 EKG EKG [] Radiology/Procedures Radiology/Procedures [] Course & Med Decision Making Course & Med Decision Making Pertinent Labs and Imaging studies reviewed. (See chart for details) [] 66-year-old male presenting to the emergency department with abdominal pain liquids secondary to his there is some of zoster. He also is being treated for prostatitis currently. Vital signs afebrile. Saturating well on room air. Mild hypertension present. Pertinent physical exam shows a soft nontender abdomen. Shingles rash present. [id number] postvoid residual shows 0 mL of urine after the patient voided. Unfortunately the patient's pain was unable to be of controlled in the emergency department so there is subsequent admitted. Dr. Alvarez admitted the patient. Dragon Disclaimer Dragon Disclaimer This electronic medical record was generated, in whole or in part, using a voice recognition dictation system. Departure Departure Impression: Primary Impression: Shingles Additional Impression: Abdominal pain Disposition: ADMITTED INPATIENT Condition: STABLE Referrals: DANY JERONIMO MD (PCP) Patient Instructions: Shingles Scripts Morphine Sulfate (MORPHINE SULFATE) 15 Mg Tablet 1 TAB PO PRN Q6-8HRS Y for SEVERE PAIN, #8 TAB Prov: RYLAND GARSIA MD 12/17/16 Problem Qualifiers RYLAND GARSIA MD December 17, 2016 17:55
[2016-12-17] MEDS: ONDANSETRON PF 4 MG/2 ML VIAL. IV PRN (18:11)
[2016-12-17] MEDS: fentaNYL PF VIAL 100 MCG/2 ML VIAL IV PRN ×3 (18:12→21:08)
[2016-12-17] MEDS: MORPHINE SULFATE 2 MG/ML DISP.SYRIN. IV PRN ×2 (18:51→22:58)
[2016-12-17 20:30] VITALS: BP 147/99
[2016-12-17 23:59] VITALS: BP 145/88
[2016-12-18] MEDS ORDERED: HYDR-2666 PO (00:22)
[2016-12-18] MEDS: MORPHINE SULFATE 2 MG/ML DISP.SYRIN. IV PRN ×2 (01:33→08:16)
[2016-12-18] MEDS: ONDANSETRON PF 4 MG/2 ML VIAL. IV PRN ×2 (01:33→20:22)
[2016-12-18] MEDS: fentaNYL PF VIAL 100 MCG/2 ML VIAL IV PRN ×2 (03:14→06:25)
[2016-12-18 03:59] VITALS: BP 135/85
[2016-12-18 05:14] LABS: BASO % 0 % (0-3); EOS % 1 % (0-3); HEMATOCRIT 45.2 % (39.0-53.0); HEMOGLOBIN 14.9 g/dL (13.0-17.5); LYMPH # 2.5 x10^3/uL (1.0-4.8); LYMPH % 41 % (24-48); MEAN CORPUSCULAR HEMOGLOBIN 29 pg (25-35); MEAN CORPUSCULAR HGB CONC 33 g/dL (31-37); MEAN CORPUSCULAR VOLUME 88 fL (79-100); MONO % 6 % (0-9); NEUT % 52 % (31-73); PLATELET COUNT 182 x10^3/uL (140-400); RED BLOOD COUNT 5.14 x10^6/uL (4.30-5.70); RED CELL DISTRIBUTION WIDTH 17.5 % (11.5-14.5); WHITE BLOOD COUNT 6.2 x10^3/uL (4.0-11.0)
[2016-12-18 05:31] LABS: CREATININE 1.1 mg/dL (0.7-1.3); GFR 66.6; POTASSIUM 4.1 mmol/L (3.5-5.1)
[2016-12-18 07:00] VITALS: BP 143/70
--- NOTE | 2016-12-18 07:41 | EKG ---
[facility] [address] [place] [address] Test Date: 2016-12-17 Test Time: 17:19:30 Pat Name: HANNY LEE Department: Room: [facility] Gender: M Personnel Specialist: : 1950 Requested By: RYLAND GARSIA Order Number: [id number] Reading MD: Angela Vail Measurements Intervals [place] Rate: 74 P: 61 ND: 154 QRS: 0 QRSD: 82 T: 26 QT: 352 QTc: 391 Interpretive Statements SINUS RHYTHM LEFTWARD AXIS No previous ECG available for comparison Electronically Signed On 12-19-2016 15:39:08 CDT by Angela Vail
--- NOTE | 2016-12-18 10:37 | PDOC ---
Provider Note Provider Note [id number] EDNA BLANKENSHIP MD December 18, 2016 10:37
[2016-12-18] MEDS: LEVOTHYROXINE 25 MCG TABLET. PO SCH (10:59)
[2016-12-18] MEDS: VENLAFAXINE 50 MG TABLET. PO SCH ×3 (10:59→20:21)
[2016-12-18] MEDS: predniSONE 5 MG TABLET PO SCH (10:59)
[2016-12-18 11:00] VITALS: BP 144/95
[2016-12-18] MEDS: HYDROcodone/APAP 5/325MG 1 TAB TABLET PO PRN ×2 (11:00→23:23)
[2016-12-18] MEDS: PANTOPRAZOLE 40 MG TABLET.DR. PO SCH (11:00)
[2016-12-18] MEDS: DIVALPROEX EXTENDED RELEASE 500 MG TAB.ER.24H. PO SCH ×2 (11:00→14:00)
[2016-12-18] MEDS: clonazePAM 0.5 MG TABLET PO SCH ×2 (11:00→14:00)
--- NOTE | 2016-12-18 11:57 | HP ---
ADMIT DATE: 12/18/2016 CHIEF COMPLAINT: Abdominal pain. HISTORY OF PRESENT ILLNESS: A 66-year-old white male patient of Dr. Greenfield who was discharged from the hospital about 2 weeks ago after shingles pain and went home. He feels he has prostatitis, which he has had many times in the past and was taking Levaquin the last few days, came in because of increasing pain. PAST MEDICAL HISTORY: Well documented in the old records. ALLERGIES: Not noticed. SOCIAL HISTORY: , nonsmoker, nondrinker. FAMILY HISTORY: Unremarkable. REVIEW OF SYSTEMS: No other complaints. OBJECTIVE: ENT: All within normal limits. NECK: No masses, nodes or bruits. LUNGS: Clear. CARDIOVASCULAR: Regular rate. No irregular beat or murmur. ABDOMEN: Soft, benign and tender in the right lower quadrant, but the shingles lesions are resolving. RECTAL: Deferred. EXTREMITIES: Unremarkable. NEUROLOGIC: Agitated, anxious, repetitive speech, seems oriented and fairly insightful. ASSESSMENT: Subjectively, he has chronic prostatitis and some postherpetic neuralgia. He certainly appears to have some psychiatric diagnosis. It is not clear to me at this time. He does appear to be moderately manic, but this may be chronic as I do not know the patient. PLAN: Levaquin p.o. at his request and home medications continue the same. EDNA BLANKENSHIP MD DR: OTIS/otilia JOB#: [id number] / [id number]
[2016-12-18] MEDS: MORPHINE IR 15 MG TABLET PO PRN ×2 (14:00→20:22)
[2016-12-18 15:00] VITALS: BP 150/89
[2016-12-18] MEDS: GABAPENTIN 100 MG CAPSULE. PO SCH ×2 (15:41→20:21)
[2016-12-18 15:56] LABS: BARBITURATES NEG (NEG); BENZODIAZEPINES NEG (NEG); CANNABINOIDS NEG (NEG); COCAINE NEG (NEG); METHADONE NEG (NEG); OPIATES POS (NEG); PHENCYCLIDINE NEG (NEG)
[2016-12-18 16:05] LABS: BILIRUBIN,URINE NEGATIVE (NEG); GLUCOSE,URINE NEGATIVE (NEG); NITRITE,URINE NEGATIVE (NEG); PH,URINE 6.5; PROTEIN,URINE NEGATIVE (NEG-TRACE); UROBILINOGEN,URINE 0.2 mg/dL (0.2 mg/dL)
[2016-12-18 16:13] LABS: BACTERIA,URINE 0 /HPF (0-FEW); RBC,URINE OCC /HPF (0-2); SQUAMOUS EPITHELIAL CELL,UR OCC /LPF; WBC,URINE 0 /HPF (0-4)
[2016-12-18 19:00] VITALS: BP 121/85
[2016-12-18] MEDS: SIMVASTATIN 20 MG TABLET PO SCH (20:21)
[2016-12-18 23:00] VITALS: BP 119/63
--- NOTE | 2016-12-18 23:50 | ACF ---
Admit Criteria Forms Admit Criteria Forms Admit Criteria Forms ABDOMINAL PAIN Clinical Indications for Admission to Inpatient Care (Place 'X' for any and all applicable criteria): Admission is indicated for ANY ONE of the following(1)(2)(3)(4)(5): [ X]I. Inpatient admission required rather than observation care (Also use Abdominal Pain: Observation Care, as appropriate) because of ANY ONE of the following: [X ]a) Severe pain requiring acute inpatient management [ ]b) Identification of etiology/finding that requires inpatient care (eg, aortic dissection, free air) [ ]c) Absent bowel sounds with complete ileus(6) [ ]d) Suspected toxic megacolon [ ]e) Severe electrolyte abnormalities requiring inpatient care [ ]f) High fever or infection requiring inpatient admission as indicated by ANY ONE of following(7)(8): [ ] i) Appropriate outpatient or observational care antimicrobial treatment unavailable, not effective, or not feasible [ ] ii) Documented bacteremia [ ] iii) Temperature > 104.9 degrees F (oral) [ ] iv) T >103.1 F (oral) or < 96.8 F(rectal) that does not respond to all emergency treatment measures [ ]g) Signs of intestinal obstruction [B] [ ]h) Hemodynamic instability [ ]i) IV fluid to replace significant ongoing losses (greater than 3 L/m2 per day) (12)(13) [ ]j) Percutaneous or open drainage (eg, abscess, biliary tract ) procedures [ ]k) Parenteral nutrition regimen that must be implemented on inpatient basis [ ]l) Other condition,treatment or monitoring requiring inpatient admission. [ ]II. Peritoneal signs present [ ]III. Surgery needed that cannot be performed on an ambulatory basis. [ ]IV. Evaluation requires patient to not eat or drink for extended period ( eg, more than 24 hours). [ ]V. Contraindications and/or Inappropriate clinical situations for Observational Care in patients with abdominal pain, when ANY ONE of the following is required: [ ]a) Thorough evaluation is required to prevent catastrophic events due to delays in diagnosing (e.g.Mesenteric ischemia) 1,3 [ ]b) Patient with severe pathology or with chronic symptoms unlikely to improve in the ED stay (3) [X ]. General contraindications and/or Inappropriate clinical situations for Observational Care in patients with abdominal pain, when ANY ONE of the following is required: [ X]a) Prediction of prolongation of LOS based on ANY ONE of the following may be considered as a contraindication for observational care 2, 3, 4, 5, 6, 7, 8, 9, 10, 11 [ X]i) Age > 65 yrs. [ ]ii) Patient arriving by ambulance [ ]iii) Patient with high acuity [ ]iv) Patient requiring vital sign monitoring [ ]v) Patient on IV medication [ ]b) Systolic blood pressures 180mmHg 3,12 [ ]c) Patient with altered mental status including delirium and other alteration of consciousness, (3) [ ]d) Patient whose discharge disposition will be to a usp home or rehabilitation home should not be managed in Emergency Department Observation Unit. CMS rule requires 3 days hospital stay before such placement.3,13 [ ]e) Patient with failure to thrive due to broad array of etiologies 3,16,17 [ ]f) Inability to ambulate 3,14 Extended stay beyond goal length of stay may be needed for(2)(3): [ ]a) Persistent abdominal pain with suspected intra-abdominal process [ ]b) Diagnosed condition requiring continued stay (e.g., pancreatitis, complicated diverticulitis) [ ]c) Surgery (e.g., colectomy) The original [employer] content created by [employer] has been revised. The portions of the content which have been revised are identified through the use of italic text or in bold, and [facility] has neither reviewed nor approved the modified material.All other unmodified content is copyright [employer] [facility] [employer]. Please see references footnoted in the original [employer] [facility] [employer] edition 2016 CJ CHATTERJEE December 18, 2016 23:50
[2016-12-19] MEDS: MORPHINE IR 15 MG TABLET PO PRN ×3 (04:58→21:23)
[2016-12-19] MEDS: ONDANSETRON PF 4 MG/2 ML VIAL. IV PRN (04:58)
[2016-12-19] MEDS: LEVOTHYROXINE 25 MCG TABLET. PO SCH (05:41)
[2016-12-19 07:00] VITALS: BP 140/90
[2016-12-19] MEDS: VENLAFAXINE 50 MG TABLET. PO SCH ×3 (07:45→21:22)
[2016-12-19] MEDS: PANTOPRAZOLE 40 MG TABLET.DR. PO SCH (07:45)
[2016-12-19] MEDS: predniSONE 5 MG TABLET PO SCH (07:46)
[2016-12-19] MEDS: GABAPENTIN 100 MG CAPSULE. PO SCH ×3 (07:46→21:22)
[2016-12-19] MEDS ORDERED: MAGNESIUM CITRATE 296 ML SOLUTION. PO ONE (09:30)
--- NOTE | 2016-12-19 09:39 | PDOC ---
Provider Note Provider Note still very anxious w/ pessured specch, perseveration, feels a little better- has hx of pit macroadenoma resected at , followed there- tony cont levoflox, add mag citrate at his request, he declines dc today, will see in am- psa pending EDNA BLANKENSHIP MD December 19, 2016 09:39
[2016-12-19 11:00] VITALS: BP 136/79
[2016-12-19] MEDS: clonazePAM 0.5 MG TABLET PO SCH ×2 (11:28→16:00)
[2016-12-19] MEDS: DIVALPROEX EXTENDED RELEASE 500 MG TAB.ER.24H. PO SCH ×2 (11:28→16:00)
--- NOTE | 2016-12-19 16:45 | PDOC ---
PROGRESS NOTES Subjective Subjective Pt. with left sided abd pain no difficulty voiding Objective Objective Vital Signs Date Time Temp Pulse Resp B/P (MAP) Pulse Ox O2 Delivery O2 Flow Rate FiO2 12/19/16 13:47 18 97 Room Air 12/19/16 11:00 98.0 94 136/79 (98) 98.0 Intake and Output 12/19/16 06:59 Intake Total 1300 ml Output Total 550 ml Balance 750 ml Intake Oral 1300 ml Output Urine Total 550 ml # Voids 2 Physical Exam Physical Exam testes descended [id number] WHITLEY-40 gms, smooth, non-tender, no nodules UA-neg for wbcs and bact CT-minimal ureteral dilation Plan Plan of Care Continue Levaquin Pt. with Zoster right lower abd last month-still resolving Pt. states he has not had a BM in 15 days and his main complaint is left abd pain Continue to w/u and treat constipation Follow up with pt's regular urologist at urology in 1-2 weeks. Problems Medical Problems: (1) Abdominal pain Status: Acute Comment Review of Relevant I have reviewed the following items darrius (where applicable) has been applied. Labs Laboratory Tests Test 12/18/16 04:10 12/18/16 14:50 White Blood Count 6.2 x10^3/uL (4.0-11.0) Red Blood Count 5.14 x10^6/uL (4.30-5.70) Hemoglobin 14.9 g/dL (13.0-17.5) Hematocrit 45.2 % (39.0-53.0) Mean Corpuscular Volume 88 fL (79-100) Mean Corpuscular Hemoglobin 29 pg (25-35) Mean Corpuscular Hemoglobin Concent 33 g/dL (31-37) Red Cell Distribution Width 17.5 % (11.5-14.5) Platelet Count 182 x10^3/uL (140-400) Neutrophils (%) (Auto) 52 % (31-73) Lymphocytes (%) (Auto) 41 % (24-48) Monocytes (%) (Auto) 6 % (0-9) Eosinophils (%) (Auto) 1 % (0-3) Basophils (%) (Auto) 0 % (0-3) Neutrophils # (Auto) 3.2 x10^3uL (1.8-7.7) Lymphocytes # (Auto) 2.5 x10^3/uL (1.0-4.8) Monocytes # (Auto) 0.3 x10^3/uL (0.0-1.1) Eosinophils # (Auto) 0.0 x10^3/uL (0.0-0.7) Basophils # (Auto) 0.0 x10^3/uL (0.0-0.2) Sodium Level 135 mmol/L (136-145) Potassium Level 4.1 mmol/L (3.5-5.1) Chloride Level 100 mmol/L (98-107) Carbon Dioxide Level 26 mmol/L (21-32) Anion Gap 9 (6-14) Blood Urea Nitrogen 9 mg/dL (8-26) Creatinine 1.1 mg/dL (0.7-1.3) Estimated GFR (Cockcroft-Gault) 66.6 Glucose Level 77 mg/dL (70-99) Calcium Level 8.0 mg/dL (8.5-10.1) Urine Collection Type Unknown Urine Color Yellow Urine Clarity Clear Urine pH 6.5 Urine Specific [place] 1.010 Urine Protein Negative mg/dL (NEG-TRACE) Urine Glucose (UA) Negative mg/dL (NEG) Urine Ketones (Stick) Negative mg/dL (NEG) Urine Blood Negative (NEG) Urine Nitrite Negative (NEG) Urine Bilirubin Negative (NEG) Urine Urobilinogen Dipstick 0.2 mg/dL (0.2 mg/dL) Urine Leukocyte Esterase Negative (NEG) Urine RBC Occ /HPF (0-2) Urine WBC 0 /HPF (0-4) Urine Squamous Epithelial Cells Occ /LPF Urine Bacteria 0 /HPF (0-FEW) Urine Opiates Screen Pos (NEG) Urine Methadone Screen Neg (NEG) Urine Barbiturates Neg (NEG) Urine Phencyclidine Screen Neg (NEG) Urine Amphetamine/Methamphetamine Neg (NEG) Urine Benzodiazepines Screen Neg (NEG) Urine Cocaine Screen Neg (NEG) Urine Cannabinoids Screen Neg (NEG) Urine Ethyl Alcohol Neg (NEG) Medications Current Medications Ondansetron HCl (Zofran) 4 mg PRN Q8HRS PRN IV NAUSEA/VOMITING Last administered on 12/18/16t 01:33; Start 12/17/16 at 18:15; Stop 12/18/16 at 18:14 ; Status DC Morphine Sulfate 2 mg PRN Q2HR PRN IV PAIN Last administered on 12/18/16 08:16 ; Start 12/17/16 at 18:15; Stop 12/18/16 at 18:14; Status DC Fentanyl Citrate (Fentanyl 2ml Vial) 50 mcg PRN Q1HR PRN IV PAIN Last administered on 12/18/16 06:25; Start 12/17/16 at 18:15; Stop 12/18/16 at 18:14 ; Status DC Clonazepam (KlonoPIN) 0.5 mg BIDACLD PO Last administered on 12/19/16 16:00; Start 12/18/16 at 11:30 Divalproex Sodium (Depakote Er) 500 mg BIDACLD PO Last administered on 16:00; Start 12/18/16 at 11:30 Acetaminophen/ Hydrocodone Bitart (Lortab 5/325) 1 tab PRN Q4HRS PRN PO MILD- MODERATE PAIN Last administered on 12/18/16 23:23; Start 12/18/16 at 10:15 Levothyroxine Sodium (Synthroid) 25 mcg DAILY07 PO Last administered on 05:41; Start 12/18/16 at 10:30 Morphine Sulfate (Morphine Ir) 15 mg PRN Q6HRS PRN PO SEVERE PAIN Last administered on 12/19/16 13:47; Start 12/18/16 at 10:15 Simvastatin (Zocor) 20 mg HS PO Last administered on 12/18/16 20:21; Start at 21:00 Pantoprazole Sodium (Protonix) 40 mg DAILYAC PO Last administered on 12/19/16 07:45; Start 12/18/16 at 11:30 Prednisone (Prednisone) 5 mg DAILY PO Last administered on 12/19/16 07:46; Start 12/18/16 at 11:00 Venlafaxine HCl (Effexor) 50 mg TID PO Last administered on 12/19/16 13:40; Start 12/18/16 at 10:45 Levofloxacin (Levaquin) 500 mg DAILY06 PO Last administered on 12/19/16 05:40 ; Start 12/18/16 at 11:00 Gabapentin (Neurontin) 100 mg TID PO Last administered on 12/19/16 13:40; Start 12/18/16 at 15:30 Ondansetron HCl (Zofran) 4 mg PRN Q8HRS PRN IV NAUSEA/VOMITING Last administered on 12/19/16 04:58; Start 12/18/16 at 20:00 Magnesium Citrate (Citroma) 296 ml 1X ONCE PO Last administered on 12/19/16 09:55; Start 12/19/16 at 09:30; Stop 12/19/16 at 09:48; Status DC Active Scripts Active Morphine Sulfate 15 Mg Tablet 1 Tab PO PRN Q6-8HRS PRN Reported Hydrocodone-Apap 5-325 (Hydrocodone Bit/Acetaminophen) 1 Each Tablet 1 Tab PO PRN Q4-6HRS PRN Testosterone Cypionate 200 Mg/1 Ml Vial 0.75 Ml IM Q2WKS Clonazepam 0.5 Mg Tablet 0.5 Mg PO BIDACLD Prednisone 2.5 Mg Tablet 5 Mg PO DAILY Effexor Xr (Venlafaxine Hcl) 150 Mg Cap.er.24h 150 Mg PO DAILY Divalproex Sodium Er (Divalproex Sodium) 500 Mg Tab.er.24h 500 Mg PO BIDACLD Simvastatin 20 Mg Tablet 20 Mg PO HS Lansoprazole 30 Mg Capsule.dr 30 Mg PO DAILY Levo-T (Levothyroxine Sodium) 25 Mcg Tablet 25 Mcg PO DAILYAC Vitals/I & O Vital Sign - Last 24 Hours 12/18/16 12/18/16 12/18/16 12/18/16 19:00 20:22 23:00 23:23 Temp 97.7 97.5 97.7 97.5 Pulse 66 73 Resp 18 20 18 20 B/P (MAP) 121/85 (97) 119/63 (81) Pulse Ox 95 94 O2 Delivery Room Air Room Air 12/19/16 12/19/16 12/19/16 12/19/16 04:58 07:00 07:45 11:00 Temp 98.9 98.0 98.9 98.0 Pulse 92 94 Resp 20 20 18 B/P (MAP) 140/90 (107) 136/79 (98) Pulse Ox 98 97 O2 Delivery Room Air Room Air Room Air Room Air 12/19/16 13:47 Resp 18 Pulse Ox 97 O2 Delivery Room Air Intake and Output 12/18/16 12/18/16 12/19/16 14:59 22:59 06:59 Intake Total 360 ml 660 ml 280 ml Output Total 550 ml Balance 360 ml 110 ml 280 ml VIJAY PENA MD December 19, 2016 16:45
[2016-12-19 19:30] VITALS: BP 99/64
[2016-12-19 21:15] VITALS: BP 117/67
[2016-12-19] MEDS: SIMVASTATIN 20 MG TABLET PO SCH (21:23)
--- NOTE | 2016-12-19 22:53 | CONS ---
DATE OF CONSULTATION: 12/19/2016 LOCATION: The patient is in room 567. HISTORY OF PRESENT ILLNESS: The patient is a very pleasant 66-year-old white male who was admitted with abdominal pain. The patient was just discharged from the hospital on 12/09/2016 after being treated for hyponatremia and had right-sided herpes zoster of the abdomen. The patient has a history of chronic prostatitis and he is a regular patient of Urology. The patient had been treated by his primary care physician for a possible flareup of the prostatitis recently with Levaquin. The patient has history of hypothyroidism, low testosterone, prior pituitary adenoma. He has had surgery on the pituitary adenoma in the past and history of chronic prostatitis. He has had prior appendectomy. The patient was admitted with abdominal pain, found to have white count of 6.2. Sodium is 135, creatinine 1.1. Urine showed just an occasional red cells, 0 white cells, 0 bacteria. The patient has been on Levaquin. The patient had CT abdomen and pelvis, which showed unremarkable kidneys and just minimal hydroureter similar to the prior CT from earlier in the month, occasional colonic ____ acute inflammation. Prostate was just mildly enlarged. PHYSICAL EXAMINATION: ABDOMEN: On physical exam, abdomen is soft. He has resolving right lower quadrant abdominal and flank herpes zoster. The patient's tenderness is in the left lower quadrant of the abdomen. The patient reports he has not had a bowel movement in the last 15 days. GENITOURINARY: Testes are descended bilaterally, nontender and nonswollen. Phallus is within normal limits. RECTAL: He has good sphincter tone. Prostate smooth, nontender, without nodules, overall size 40 grams. PLAN: I talked with the patient concerning his symptomatology and I think it is consistent with not having had a bowel movement for the last 15 days with the patient's also history of chronic prostatitis. I think it is okay to have him continue with the Levaquin. The patient reports no problems with voiding and I would recommend that the patient follow up with his regular Urology at Urology in the next 5-10 days. I certainly appreciate being allowed to see this patient in consultation and then participate in this patient's care. We will also agree with working up his constipation and treatment of it. VIJAY PENA MD DR: KAYCEE/otilia JOB#: [id number] / [id number]
[2016-12-19 23:45] VITALS: BP 155/106
[2016-12-19] MEDS: HYDROcodone/APAP 5/325MG 1 TAB TABLET PO PRN (23:46)
[2016-12-20] VITALS (7 sets, daily range): BP systolic 69–111; BP diastolic 36–74
[2016-12-20] MEDS: MORPHINE IR 15 MG TABLET PO PRN (04:13)
[2016-12-20] MEDS: LEVOTHYROXINE 25 MCG TABLET. PO SCH (06:15)
[2016-12-20] MEDS ORDERED: MAGNESIUM CITRATE 296 ML SOLUTION. PO ONE (07:15)
[2016-12-20] MEDS: VENLAFAXINE 50 MG TABLET. PO SCH ×3 (09:32→21:46)
[2016-12-20] MEDS: HYDROcodone/APAP 5/325MG 1 TAB TABLET PO PRN ×2 (09:33→21:45)
[2016-12-20] MEDS: predniSONE 5 MG TABLET PO SCH (09:33)
[2016-12-20] MEDS: GABAPENTIN 100 MG CAPSULE. PO SCH ×3 (09:33→21:46)
[2016-12-20] MEDS: PANTOPRAZOLE 40 MG TABLET.DR. PO SCH (09:33)
[2016-12-20] MEDS ORDERED: MAGNESIUM HYDROXIDE 2,400 MG/30 ML ORAL.SUSP. PO PRN (12:45)
--- NOTE | 2016-12-20 12:59 | PDOC ---
Provider Note Provider Note overnight got low bp and mild hypoxia aftrer taking msir 15 mg at 0300- bp better now but c/o heartburn- has hr 82/rr 12, good pedal pulses, no focal sogns , still very anxious and tangential thought- will add mom prn and pepcid to protonix, have stopped msir and discussed w/ him why- ua and psa ok EDNA BLANKENSHIP MD December 20, 2016 12:59
[2016-12-20] MEDS: FAMOTIDINE 20 MG TABLET. PO SCH ×2 (13:27→21:46)
[2016-12-20] MEDS: clonazePAM 0.5 MG TABLET PO SCH ×2 (13:27→17:46)
[2016-12-20] MEDS: DIVALPROEX EXTENDED RELEASE 500 MG TAB.ER.24H. PO SCH ×2 (13:27→17:46)
[2016-12-20] MEDS: SIMVASTATIN 20 MG TABLET PO SCH (21:46)
[2016-12-21 03:00] VITALS: BP 115/70
[2016-12-21 07:00] VITALS: BP 109/75
[2016-12-21] MEDS: PANTOPRAZOLE 40 MG TABLET.DR. PO SCH (07:19)
[2016-12-21] MEDS: LEVOTHYROXINE 25 MCG TABLET. PO SCH (07:19)
[2016-12-21] MEDS: VENLAFAXINE 50 MG TABLET. PO SCH ×2 (08:57→13:30)
[2016-12-21] MEDS: predniSONE 5 MG TABLET PO SCH (08:57)
[2016-12-21] MEDS: FAMOTIDINE 20 MG TABLET. PO SCH (08:57)
[2016-12-21] MEDS: GABAPENTIN 100 MG CAPSULE. PO SCH ×2 (08:57→13:30)
[2016-12-21 10:46] VITALS: BP 98/53
[2016-12-21] MEDS: DIVALPROEX EXTENDED RELEASE 500 MG TAB.ER.24H. PO SCH ×2 (11:44→16:49)
[2016-12-21] MEDS: clonazePAM 0.5 MG TABLET PO SCH ×2 (11:44→16:49)
[2016-12-21] MEDS: HYDROcodone/APAP 5/325MG 1 TAB TABLET PO PRN (13:30)
[2016-12-21 15:30] VITALS: BP 108/61
--- NOTE | 2016-12-21 21:22 | PDOC ---
GENERAL General: see discharge summary. Problems: VITAL SIGNS Vital Signs: Vital Signs Date Time Temp Pulse Resp B/P (MAP) Pulse Ox O2 Delivery O2 Flow Rate FiO2 12/21/16 15:30 98.1 69 18 108/61 (77) 94 Room Air 98.1 12/20/16 10:42 2.0 I & O I & O Intake and Output 12/21/16 07:00 Intake Total 750 ml Balance 750 ml Intake Oral 750 ml # Voids 2 ALLERGIES Allergies: Allergies Coded Allergies Type Severity Reaction Last Updated Verified sulfamethoxazole Allergy Intermediate Rash 12/19/16 Yes trimethoprim Allergy Intermediate Rash 12/19/16 Yes MEDS Medications: Current Medications Medications (Trade) Dose Ordered Sig/Shukri Start Time Stop Time Status Last Admin Dose Admin Acetaminophen/ Hydrocodone Bitart (Lortab ) 1 tab PRN Q4HRS PRN 12/18/16 10:15 12/21/16 18:52 DC 12/21/16 13:30 1 TAB Clonazepam (KlonoPIN) 0.5 mg BIDACLD 12/18/16 11:30 12/21/16 18:52 DC 12/21/16 16:49 0.5 MG Divalproex Sodium (Depakote Er) 500 mg BIDACLD 12/18/16 11:30 12/21/16 18:52 DC 12/21/16 16:49 500 MG Famotidine (Pepcid) 20 mg BID 12/20/16 13:00 12/21/16 18:52 DC 12/21/16 08:57 20 MG Fentanyl Citrate (Fentanyl 2ml Vial) 50 mcg PRN Q1HR PRN 12/17/16 18:15 12/18/16 18:14 DC 12/18/16 06:25 50 MCG Gabapentin (Neurontin) 100 mg TID 12/18/16 15:30 12/21/16 18:52 DC 12/21/16 13:30 100 MG Levofloxacin (Levaquin) 500 mg DAILY06 12/18/16 11:00 12/21/16 18:52 DC 12/21/16 07:19 500 MG Levothyroxine Sodium (Synthroid) 25 mcg DAILY07 12/18/16 10:30 12/21/16 18:52 DC 12/21/16 07:19 25 MCG Magnesium Hydroxide (Milk Of Magnesia) 2,400 mg PRN Q4HRS PRN 12/20/16 12:45 12/21/16 18:52 DC Magnesium Citrate (Citroma) 296 ml 1X ONCE 12/20/16 07:15 12/20/16 07:16 DC 12/20/16 09:32 296 ML Morphine Sulfate (Morphine Ir) 15 mg PRN Q6HRS PRN 12/18/16 10:15 12/20/16 06:52 DC 12/20/16 04:13 15 MG Ondansetron HCl (Zofran) 4 mg PRN Q8HRS PRN 12/18/16 20:00 12/21/16 18:52 DC 12/19/16 04:58 4 MG Pantoprazole Sodium (Protonix) 40 mg DAILYAC 12/18/16 11:30 12/21/16 18:52 DC 12/21/16 07:19 40 MG Prednisone (Prednisone) 5 mg DAILY 12/18/16 11:00 12/21/16 18:52 DC 12/21/16 08:57 5 MG Simvastatin (Zocor) 20 mg HS 12/18/16 21:00 12/21/16 18:52 DC 12/20/16 21:46 20 MG Venlafaxine HCl (Effexor) 50 mg TID 12/18/16 10:45 12/21/16 18:52 DC 12/21/16 13:30 50 MG DANY JERONIMO MD December 21, 2016 21:22
--- NOTE | 2016-12-22 04:42 | DS ---
DATE OF DISCHARGE: 12/21/2016 PRIMARY DIAGNOSIS: Abdominal pain, felt to be primarily related to postherpetic neuralgia, right lower quadrant. ADDITIONAL DIAGNOSES: Resolving prostatitis, depression, constipation. CHIEF COMPLAINT AND HISTORY OF PRESENT ILLNESS: A 66-year-old white male admitted through the Emergency Room on the day of admission with intractable abdominal pain, had been on Levaquin for prostatitis before the shingles broke out and it was felt the shingles was probably the predominant cause of his pain during his last admission. SUMMARY OF STAY: The patient was admitted. Urology saw him and felt that the prostate was this time relatively normal. He was found to be constipated, given milk of magnesia, did have improvement in his pain with bowel movements as well as the addition of gabapentin during his stay at 100 t.i.d. He was felt ready for discharge with outpatient followup to ensue. DISPOSITION: The patient is discharged home. DIET: Regular diet. ACTIVITY: As tolerated. FOLLOWUP: Office in 2 weeks. DISCHARGE MEDICATIONS: Include his regular home meds plus the gabapentin 100 t.i.d. and milk of magnesia 30 mL daily p.r.n. DANY JERONIMO MD DR: RANDI/otilia JOB#: [id number] / [id number]
== END 2016-12-21 17:50 | disposition home or self-care (01) | DRG 74 ==
LOC: ER 18:19 → OBSVTOIN 19:01 → 5 SOUTH 19:01
PROVIDERS: ADMIT Family Medicine; ATTEND Family Medicine
DX: B02.29 Other postherpetic nervous system involvement (principal); N13.4 Hydroureter; N41.1 Chronic prostatitis; E78.00 Pure hypercholesterolemia, unspecified; R09.02 Hypoxemia; E03.9 Hypothyroidism, unspecified; F41.9 Anxiety disorder, unspecified; K59.00 Constipation, unspecified; Z90.49 Acquired absence of other specified parts of digestive tract; Z88.8 Allergy status to other drugs, medicaments and biological substances; Z79.899 Other long term (current) drug therapy; Z85.841 Personal history of malignant neoplasm of brain
CPT/HCPCS: 36415; 74177; 80048; 80053; 81001; 85027; 93005; 96374; G0103; G0481; J2270; J2405; J3010; J7512; Q9966; Q9967; 99285-25

== ENCOUNTER 2020-02-24 08:27 | Inpatient (IN) | payer MEDICARE ==
[~2020-02-24] VITALS: Ht 182.9 cm; Wt 76.2 kg
[2020-02-24] VITALS (10 sets, daily range): BP systolic 87–125; BP diastolic 62–79
[~2020-02-24 08:27] MED LIST changes: +CLON-77 PO; -CLON0.5T3 PO; +HYDR-2761 PO; +MORP15TA PO; +SIMV20TA18 PO; -SIMV20TA3 PO
[2020-02-24] MEDS ORDERED: IV NORMAL SALINE 1000ML BAG 1,000 ML IV ONE ×2 (09:00→10:30)
[2020-02-24 09:04] LABS: BASO # 0.2 x10^3/uL (0.0-0.2); BASO % 1 % (0-3); EOS % 0 % (0-3); HEMOGLOBIN 14.2 g/dL (13.0-17.5); LYMPH # 2.3 x10^3/uL (1.0-4.8); LYMPH % 14 % (24-48); MEAN CORPUSCULAR HEMOGLOBIN 31 pg (25-35); MEAN CORPUSCULAR HGB CONC 34 g/dL (31-37); MEAN CORPUSCULAR VOLUME 92 fL (79-100); MONO # 0.7 x10^3/uL (0.0-1.1); MONO % 4 % (0-9); NEUT # 13.2 x10^3/uL (1.8-7.7); NEUT % 81 % (31-73); PLATELET COUNT 135 x10^3/uL (140-400); RED BLOOD COUNT 4.57 x10^6/uL (4.30-5.70); RED CELL DISTRIBUTION WIDTH 14.4 % (11.5-14.5); WHITE BLOOD COUNT 16.4 x10^3/uL (4.0-11.0)
[2020-02-24 09:09] LABS: CALCIUM 8.4 mg/dL (8.5-10.1); CREATININE 3.4 mg/dL (0.7-1.3); GFR 17.9; POTASSIUM 3.9 mmol/L (3.5-5.1)
[2020-02-24 09:13] LABS: PROTHROMBIN TIME PATIENT 16.5 SEC (11.7-14.0)
[2020-02-24 09:15] LABS: ALBUMIN 2.9 g/dL (3.4-5.0); ALBUMIN/GLOBULIN RATIO 0.8 (1.0-1.7); TOTAL BILIRUBIN 0.6 mg/dL (0.2-1.0); TOTAL PROTEIN 6.5 g/dL (6.4-8.2)
--- NOTE | 2020-02-24 09:23 | RAD ---
Chest AP portable 02/24/2020. Reason for exam: Fever and confusion. The right hemidiaphragm is mildly elevated. There are patchy areas of opacity in the right mid and lower lung. These appear larger than typical atelectasis. Minimal atelectasis is suggested at the left base. There is no apparent pleural fluid. Heart size is normal. IMPRESSION: Elevated right hemidiaphragm. Patchy infiltrates on the right. Electronically signed by: Néstor Oneill Jr., MD (02/24/2020 9:21 AM) [facility]
[2020-02-24] MEDS ORDERED: ACETAMINOPHEN 500 MG TABLET PO ONE (09:30)
[2020-02-24 10:01] LABS: VAL ACID 20 mcg/mL (50-100)
[2020-02-24 10:10] LABS: FREE T4 0.65 ng/dL (0.76-1.46)
--- NOTE | 2020-02-24 10:12 | RAD ---
CT abdomen and pelvis without contrast 02/24/2020. Reason for exam: Fever and abdominal pain. Helical noncontrast images were obtained through the abdomen and pelvis. Exposure: One or more of the following individualized dose reduction techniques were utilized for this examination: 1. Automated exposure control 2. Adjustment of the mA and/or kV according to patient size 3. Use of iterative reconstruction technique. Comparison is made with an exam of 12/17/2016. FINDINGS: The right hemidiaphragm remains elevated. There is greater opacity at the right lung base. This appears to consist of some groundglass infiltrate as well as more consolidative regions. These have vaguely nodular appearance, although there is no distinct mass. There is minimal atelectasis left lower lobe. The lung bases otherwise are clear. Low-attenuation areas are again seen in the liver and suggest cysts. One in the right lobe has increased in size, now measuring 3.9 cm versus 2.4 cm previously. However, it does not have suspicious features. The spleen appears normal. The kidneys show no mass or obstruction. The adrenal glands are not enlarged. The pancreas appears normal. No retroperitoneal or mesenteric adenopathy is seen. There is no apparent abdominal mass or inflammatory process. Images through the pelvis show no apparent abnormality of the distal ureters or bladder. No pelvic or inguinal adenopathy is seen. There is no apparent pelvic mass or inflammatory process. IMPRESSION: No apparent acute abnormality in the abdomen or pelvis. There is greater opacity at the right lung base compared to the prior CT. This appears to represent areas of infiltrate and probable lung consolidation, although there is a vaguely nodular appearance. This is presumably infectious/inflammatory, but radiographic follow-up is recommended to confirm clearing. Electronically signed by: Néstor Oneill Jr., MD (02/24/2020 10:09 AM) [facility]
[2020-02-24] MEDS ORDERED: AZITHRMYCN 500MG IVPB FOR OMNI 250 ML IV ONE (10:30)
[2020-02-24] MEDS ORDERED: cefTRIAXone IV Push 1 GM VIAL. IVP ONE (10:30)
[2020-02-24 10:34] LABS: THYROID STIM HORMONE (TSH) < 0.007 uIU/mL (0.358-3.74)
[2020-02-24 10:51] LABS: % BANDS 2 % (0-9); % LYMPHS 19 % (24-48); % MONOS 3 % (0-10); % SEGS 76 % (35-66)
[2020-02-24 10:52] LABS: ANISOCYTOSIS SLIGHT; PLT ESTIMATE ADEQUATE (ADEQUATE); POLYCHROMASIA SLIGHT
[2020-02-24] MEDS ORDERED: ASPIRIN CHEWABLE 81 MG TABLET. PO ONE (11:30)
[2020-02-24] MEDS ORDERED: ONDANSETRON PF 4 MG/2 ML VIAL. IV PRN (11:30)
--- NOTE | 2020-02-24 11:30 | PHYS DOC ---
Past Medical History Past Medical History: Anxiety, High Cholesterol, Hypothyroid, Other Additional Past Medical Histor: SHINGLES, PROSTATITS Past Surgical History: Appendectomy Additional Past Surgical Histo: BRAIN TUMOR REMOVED Smoking Status: Former Smoker Alcohol Use: None Drug Use: None General Adult EDM: Chief Complaint: MULTIPLE COMPLAINTS HPI: HPI: Patient is a 69 year old male who presents to ER today by private vehicle with multiple vague complaints. Patient said he has been sick for a week, he feels dehydrated, he had an episode of nausea vomiting yesterday. Patient denies any chest pain, but he do have some epigastric abdominal pain. Patient complain of feeling dizzy, nonproductive cough, hot and chill. Patient is not sure if he has been exposed to any COVID-19 infected individual however he HAS BEEN WORKING and been in contact with a lot of different people. Patient is a very poor historian. Patient think that his doctor changed his psych meds and made him sick. Review of Systems: Review of Systems: Constitutional: Denies fever positive for chills, general weakness Eyes: Denies change in visual acuity. [] HENT: Denies nasal congestion or sore throat. [] Respiratory: Denies cough or shortness of breath. [] Cardiovascular: Denies chest pain or edema. [] GI: Positive for abdominal pain, nausea, vomiting, no bloody stools or diarrhea. [] : Denies dysuria. [] Musculoskeletal: Denies back pain or joint pain. [] Integument: Denies rash. [] Neurologic: Denies headache, focal weakness or sensory changes. [] Endocrine: Denies polyuria or polydipsia. [] Lymphatic: Denies swollen glands. [] Psychiatric: Denies depression or anxiety. [] Heart Score: Risk Factors: Risk Factors: DM, Current or recent (<one month) smoker, HTN, HLP, family history of CAD, obesity. Risk Scores: Score 0 - 3: 2.5% MACE over next 6 weeks - Discharge Home Score 4 - 6: 20.3% MACE over next 6 weeks - Admit for Clinical Observation Score 7 - 10: 72.7% MACE over next 6 weeks - Early Invasive Strategies Current Medications: Current Medications Medications (Trade) Dose Ordered Sig/Shukri Start Time Stop Time Status Last Admin Dose Admin Acetaminophen (Tylenol) 1,000 mg 1X ONCE 02/24/20 09:30 02/24/20 09:31 DC 02/24/20 09:11 1,000 MG Aspirin (Aspirin Chewable) 324 mg 1X ONCE 02/24/20 11:30 02/24/20 11:31 Azithromycin 250 ml @ 250 mls/hr 1X ONCE 02/24/20 10:30 02/24/20 11:29 02/24/20 10:30 250 MLS/HR Ceftriaxone Sodium (Rocephin) 1 gm 1X ONCE 02/24/20 10:30 02/24/20 10:31 DC 02/24/20 10:29 1 GM Ondansetron HCl (Zofran) 4 mg PRN Q8HRS PRN 02/24/20 11:30 02/25/20 11:29 UNV Sodium Chloride 1,000 ml @ 125 mls/hr Q8H 02/24/20 11:23 02/25/20 11:22 UNV Allergies: Allergies: Allergies Coded Allergies Type Severity Reaction Last Updated Verified sulfamethoxazole Allergy Intermediate Rash 12/19/16 Yes trimethoprim Allergy Intermediate Rash 12/19/16 Yes Physical Exam: PE: Constitutional: Well developed, well nourished, no acute distress, non-toxic appearance. [] HENT: Normocephalic, atraumatic, bilateral external ears normal, oropharynx is dried, no oral exudates, nose normal. [] Eyes: PERRLA, EOMI, conjunctiva normal, no discharge. [] Neck: Normal range of motion, no tenderness, supple, no stridor. [] Cardiovascular:Heart rate regular rhythm, no murmur [] Lungs & Thorax: Bilateral breath sounds clear to auscultation [] Abdomen: Bowel sounds normal, soft, there is tenderness in epigastric area, no masses, no pulsatile masses. [] Skin: Warm, dry, no erythema, no rash. [] Back: No tenderness, no CVA tenderness. [] Extremities: No tenderness, no cyanosis, no clubbing, ROM intact, no edema. [] Neurologic: Alert and oriented X 3, normal motor function, normal sensory function, no focal deficits noted. [] Psychologic: Affect normal, judgement normal, mood normal. [] Current Patient Data: Labs: Laboratory Tests Test 02/24/20 08:45 White Blood Count 16.4 x10^3/uL (4.0-11.0) H Red Blood Count 4.57 x10^6/uL (4.30-5.70) Hemoglobin 14.2 g/dL (13.0-17.5) Hematocrit 42.0 % (39.0-53.0) Mean Corpuscular Volume 92 fL (79-100) Mean Corpuscular Hemoglobin 31 pg (25-35) Mean Corpuscular Hemoglobin Concent 34 g/dL (31-37) Red Cell Distribution Width 14.4 % (11.5-14.5) Platelet Count 135 x10^3/uL (140-400) L Neutrophils (%) (Auto) 81 % (31-73) H Lymphocytes (%) (Auto) 14 % (24-48) L Monocytes (%) (Auto) 4 % (0-9) Eosinophils (%) (Auto) 0 % (0-3) Basophils (%) (Auto) 1 % (0-3) Neutrophils # (Auto) 13.2 x10^3/uL (1.8-7.7) H Lymphocytes # (Auto) 2.3 x10^3/uL (1.0-4.8) Monocytes # (Auto) 0.7 x10^3/uL (0.0-1.1) Eosinophils # (Auto) 0.0 x10^3/uL (0.0-0.7) Basophils # (Auto) 0.2 x10^3/uL (0.0-0.2) Segmented Neutrophils % 76 % (35-66) H Band Neutrophils % 2 % (0-9) Lymphocytes % 19 % (24-48) L Monocytes % 3 % (0-10) Platelet Estimate Adequate (ADEQUATE) Large Platelets Occ Giant Platelets Occ Polychromasia Slight Anisocytosis Slight Prothrombin Time 16.5 SEC (11.7-14.0) H Prothrombin Time INR 1.4 (0.8-1.1) H Activated Partial Thromboplast Time 41 SEC (24-38) H Sodium Level 135 mmol/L (136-145) L Potassium Level 3.9 mmol/L (3.5-5.1) Chloride Level 97 mmol/L (98-107) L Carbon Dioxide Level 30 mmol/L (21-32) Anion Gap 8 (6-14) Blood Urea Nitrogen 42 mg/dL (8-26) H Creatinine 3.4 mg/dL (0.7-1.3) H Estimated GFR (Cockcroft-Gault) 17.9 BUN/Creatinine Ratio 12 (6-20) Glucose Level 73 mg/dL (70-99) Lactic Acid Level 1.8 mmol/L (0.4-2.0) Calcium Level 8.4 mg/dL (8.5-10.1) L Total Bilirubin 0.6 mg/dL (0.2-1.0) Aspartate Amino Transferase (AST) 38 U/L (15-37) H Alanine Aminotransferase (ALT) 23 U/L (16-63) Alkaline Phosphatase 52 U/L (46-116) Troponin I Quantitative 1.103 ng/mL (0.000-0.055) QG-Kis-Y-Type Natriuretic Peptide 7973 pg/mL (0-124) H Total Protein 6.5 g/dL (6.4-8.2) Albumin 2.9 g/dL (3.4-5.0) L Albumin/Globulin Ratio 0.8 (1.0-1.7) L Thyroid Stimulating Hormone (TSH) < 0.007 uIU/mL (0.358-3.74) L Free Thyroxine 0.65 ng/dL (0.76-1.46) L Valproic Acid Level 20 mcg/mL (50-100) L Valproic Acid Last Dose Date 02/23/20 Valproic Acid Last Dose Time 1900 Laboratory Tests 02/24/20 08:45 Laboratory Tests 02/24/20 08:45 Vital Signs: Vital Signs Date Time Temp Pulse Resp B/P (MAP) Pulse Ox O2 Delivery O2 Flow Rate FiO2 02/24/20 08:37 100.2 112 24 113/72 (86) Room Air 100.2 EKG: EKG: EKG was done at 1003, heart rate of 93 bpm, sinus rhythm, no ST segment elevation. Radiology/Procedures: Radiology/Procedures: [][facility] [address] [place] [address] IMAGING REPORT Signed PATIENT: HANNY LEE FACCOUNT: [id number] : 1950 LOCATION: ER AGE: 69 SEX: M EXAM STATUS: PRE ER ORD. PHYSICIAN: SURY CORNELIUS DO REASON: FEVER, CONFUSION PROCEDURE: PORTABLE CHEST 1V Chest AP portable 02/24/2020. Reason for exam: Fever and confusion. The right hemidiaphragm is mildly elevated. There are patchy areas of opacity in the right mid and lower lung. These appear larger than typical atelectasis. Minimal atelectasis is suggested at the left base. There is no apparent pleural fluid. Heart size is normal. IMPRESSION: Elevated right hemidiaphragm. Patchy infiltrates on the right. Electronically signed by: Rachel Oneill Jr., MD (02/24/2020 9:21 AM) [facility] DICTATED and SIGNED BY: RACHEL ONEILL Jr, MD DATE: 02/24/20920 [facility] [address] [place] [address] IMAGING REPORT Signed PATIENT: HANNY LEE FACCOUNT: [id number] : 1950 LOCATION: ER AGE: 69 SEX: M EXAM STATUS: PRE ER ORD. PHYSICIAN: SURY CORNELIUS DO REASON: fever, abdominal pain PROCEDURE: CT ABDOMEN PELVIS WO CONTRAST CT abdomen and pelvis without contrast 02/24/2020. Reason for exam: Fever and abdominal pain. Helical noncontrast images were obtained through the abdomen and pelvis. Exposure: One or more of the following individualized dose reduction techniques were utilized for this examination: 1. Automated exposure control 2. Adjustment of the mA and/or kV according to patient size 3. Use of iterative reconstruction technique. Comparison is made with an exam of 12/17/2016. FINDINGS: The right hemidiaphragm remains elevated. There is greater opacity at the right lung base. This appears to consist of some groundglass infiltrate as well as more consolidative regions. These have vaguely nodular appearance, although there is no distinct mass. There is minimal atelectasis left lower lobe. The lung bases otherwise are clear. Low-attenuation areas are again seen in the liver and suggest cysts. One in the right lobe has increased in size, now measuring 3.9 cm versus 2.4 cm previously. However, it does not have suspicious features. The spleen appears normal. The kidneys show no mass or obstruction. The adrenal glands are not enlarged. The pancreas appears normal. No retroperitoneal or mesenteric adenopathy is seen. There is no apparent abdominal mass or inflammatory process. Images through the pelvis show no apparent abnormality of the distal ureters or bladder. No pelvic or inguinal adenopathy is seen. There is no apparent pelvic mass or inflammatory process. IMPRESSION: No apparent acute abnormality in the abdomen or pelvis. There is greater opacity at the right lung base compared to the prior CT. This appears to represent areas of infiltrate and probable lung consolidation, although there is a vaguely nodular appearance. This is presumably infectious/inflammatory, but radiographic follow-up is recommended to confirm clearing. Electronically signed by: Rachel Oneill Jr., MD (02/24/2020 10:09 AM) [facility] DICTATED and SIGNED BY: RACHEL ONEILL Jr, MD DATE: 02/24/20 1009 Course & Med Decision Making: Course & Med Decision Making Pertinent Labs and Imaging studies reviewed. (See chart for details) Patient is a 69-year-old male who presented to ER today with multiple vague complaints, he was found to have acute renal failure with creatinine level elevated, he IS dehydrated, patient has elevated troponin, elevated BNP consistent with NSTEMI but he had no chest pain at this time. Patient was found to have a fever, chest x-ray and CT scan show right lower lobe consolidation. Patient blood pressure was low. He had elevated white blood cell count, lactic acid normal. Patient was given 2 L normal saline IV bolus, he was given IV Rocephin and Zithromax. Patient is suspected to have covid 19 infection. Patient will be admitted to the ICU, discussed with Dr. Greenfield who agreed to admit patient. Cardiology and nephrology will be consulted. Critical care time was [60] minutes which includes time at bedside, spent in discussion of patient's care with specialist and/or family members, with interpr etation of laboratory and/or radiological studies and is exclusive of procedures. Dragon Disclaimer: Dragon Disclaimer: This electronic medical record was generated, in whole or in part, using a voice recognition dictation system. Departure Departure Impression: Primary Impression: CAP (community acquired pneumonia) Additional Impressions: Acute renal failure NSTEMI (non-ST elevated myocardial infarction) Suspected 2019 novel coronavirus infection Disposition: 09 ADMITTED INPATIENT Admitting Physician: Dany Greenfield HIMS Condition: IMPROVED Referrals: DANY GREENFIELD MD (PCP) Justicifation of Admission Dx: Justifications for Admission: Justification of Admission Dx: Yes Acute Renal Failure: 3-Fold Rise in Serum Crea SURY CORNELIUS DO Feb 24, 2020 11:30
--- NOTE | 2020-02-24 14:40 | CONS ---
DATE OF CONSULTATION: 02/24/2020 REASON FOR CONSULTATION: Elevated troponin. CONSULTING PHYSICIAN: Dr. Bush from the Emergency Department. HISTORY OF PRESENT ILLNESS: The patient is a 69-year-old man with past medical history as noted below, who presents to the hospital with multiple vague complaints reported. His most significant issues included abdominal discomfort and some nausea/vomiting and also was noted to have some fevers subjectively. So far working diagnosis is for possible coronavirus pneumonia. The patient does not have any chest pain. No syncope or palpitations. PAST MEDICAL HISTORY: 1. Hypothyroidism. 2. Hypopituitarism. 3. Dyslipidemia. 4. Prior history of appendectomy. 5. Prior history of brain tumor removal. SOCIAL HISTORY: The patient is a former smoker. No illicit drug use. No alcohol use. FAMILY HISTORY: Noncontributory. ALLERGIES: SULFAMETHOXAZOLE AND TRIMETHOPRIM. CURRENT CARDIOVASCULAR MEDICATIONS: The patient given aspirin x 1 at dose of 325. REVIEW OF SYSTEMS: Negative unless otherwise mentioned above in HPI. PHYSICAL EXAMINATION: VITAL SIGNS: Afebrile, 76, 18, 94/62, 97% on 2 liters nasal cannula. GENERAL: He is resting comfortably in no acute distress. HEAD AND NECK: Unremarkable. CARDIAC: Regular rate and rhythm without any murmurs, rubs or gallops. LUNGS: Clear to auscultation. ABDOMEN: Soft, nontender, nondistended. EXTREMITIES: No clubbing, cyanosis or edema. NEUROLOGIC: No focal deficits. MUSCULOSKELETAL: No trauma. DIAGNOSTIC STUDIES: CT of the abdomen and pelvis is unremarkable, but does have a suggestion of infiltrates in the right lung base. The patient has a right elevated diaphragm and patchy infiltrates in the right side again suggestive of pneumonia. EKG is unremarkable. Cardiac enzymes are notable that troponin is elevated at 1.1 and a BNP is also elevated at 7900. Creatinine is 3.4. TSH is less than 0.007. IMPRESSION: 1. Possible coronavirus pneumonia. 2. Elevated troponin, likely secondary to pneumonia and acute renal failure, less suspicious for any acute coronary syndrome given the lack of chest pain and normal EKG. RECOMMENDATIONS: Continue supportive care from a cardiovascular standpoint and hydration for the renal failure. Plan for a routine echocardiogram once his coronavirus testing has been obtained. Thank you for this consultation. LAYO DURON MD DR: SEAN/otilia JOB#: [id number] / [id number]
[2020-02-24] MEDS: IV NORMAL SALINE 1000ML BAG 1,000 ML IV SCH ×2 (16:00→19:19)
[2020-02-24] MEDS ORDERED: PIP/TAZO PER PHARMACY MC PRN (17:00)
[2020-02-24] MEDS: ACETAMINOPHEN 325 MG TABLET. PO PRN (17:38)
[2020-02-24] MEDS ORDERED: DAPTOmycin (GENERIC) IVPB 460 MG in IV NORMAL SALINE 50ML 50 ML IV ONE (18:00)
[2020-02-24] MEDS: PIPERACILLIN/TAZOBACTAM 2.25 GM in IV NORMAL SALINE 50ML 50 ML IV SCH (18:47)
[2020-02-24 22:35] LABS: BILIRUBIN,URINE NEGATIVE (NEG); CLARITY,URINE CLEAR; COLOR,URINE YELLOW; NITRITE,URINE NEGATIVE (NEG); PH,URINE 6.5 (<5.0-8.0); PROTEIN,URINE NEGATIVE (NEG-TRACE); UROBILINOGEN,URINE 0.2 mg/dL (0.2 mg/dL)
[2020-02-24 22:40] LABS: RBC,URINE RARE /HPF (0-2); SQUAMOUS EPITHELIAL CELL,UR OCC /LPF
[2020-02-24 22:41] LABS: AMORPHOUS SEDIMENT,UR PRESENT /HPF; BACTERIA,URINE 0 /HPF (0-FEW); WBC,URINE RARE /HPF (0-4)
[2020-02-25] VITALS (16 sets, daily range): BP systolic 98–147; BP diastolic 70–92
[2020-02-25] MEDS: PIPERACILLIN/TAZOBACTAM 2.25 GM in IV NORMAL SALINE 50ML 50 ML IV SCH ×5 (00:14→22:58)
[2020-02-25] MEDS: IV NORMAL SALINE 1000ML BAG 1,000 ML IV SCH ×2 (03:08→14:00)
--- NOTE | 2020-02-25 08:03 | PDOC ---
Infectious Disease Note Vital Sign Vital Signs Vital Signs Date Time Temp Pulse Resp B/P (MAP) Pulse Ox O2 Delivery O2 Flow Rate FiO2 02/25/20 07:00 66 22 119/77 (91) 91 Nasal Cannula 2.0 02/25/20 04:00 98.0 98.0 Labs Lab Laboratory Tests Test 02/24/20 08:45 02/24/20 22:30 White Blood Count 16.4 x10^3/uL (4.0-11.0) Red Blood Count 4.57 x10^6/uL (4.30-5.70) Hemoglobin 14.2 g/dL (13.0-17.5) Hematocrit 42.0 % (39.0-53.0) Mean Corpuscular Volume 92 fL (79-100) Mean Corpuscular Hemoglobin 31 pg (25-35) Mean Corpuscular Hemoglobin Concent 34 g/dL (31-37) Red Cell Distribution Width 14.4 % (11.5-14.5) Platelet Count 135 x10^3/uL (140-400) Neutrophils (%) (Auto) 81 % (31-73) Lymphocytes (%) (Auto) 14 % (24-48) Monocytes (%) (Auto) 4 % (0-9) Eosinophils (%) (Auto) 0 % (0-3) Basophils (%) (Auto) 1 % (0-3) Neutrophils # (Auto) 13.2 x10^3/uL (1.8-7.7) Lymphocytes # (Auto) 2.3 x10^3/uL (1.0-4.8) Monocytes # (Auto) 0.7 x10^3/uL (0.0-1.1) Eosinophils # (Auto) 0.0 x10^3/uL (0.0-0.7) Basophils # (Auto) 0.2 x10^3/uL (0.0-0.2) Segmented Neutrophils % 76 % (35-66) Band Neutrophils % 2 % (0-9) Lymphocytes % 19 % (24-48) Monocytes % 3 % (0-10) Platelet Estimate Adequate (ADEQUATE) Large Platelets Occ Giant Platelets Occ Polychromasia Slight Anisocytosis Slight Prothrombin Time 16.5 SEC (11.7-14.0) Prothromb Time International Ratio 1.4 (0.8-1.1) Activated Partial Thromboplast Time 41 SEC (24-38) Sodium Level 135 mmol/L (136-145) Potassium Level 3.9 mmol/L (3.5-5.1) Chloride Level 97 mmol/L (98-107) Carbon Dioxide Level 30 mmol/L (21-32) Anion Gap 8 (6-14) Blood Urea Nitrogen 42 mg/dL (8-26) Creatinine 3.4 mg/dL (0.7-1.3) Estimated GFR (Cockcroft-Gault) 17.9 BUN/Creatinine Ratio 12 (6-20) Glucose Level 73 mg/dL (70-99) Lactic Acid Level 1.8 mmol/L (0.4-2.0) Calcium Level 8.4 mg/dL (8.5-10.1) Total Bilirubin 0.6 mg/dL (0.2-1.0) Aspartate Amino Transf (AST/SGOT) 38 U/L (15-37) Alanine Aminotransferase (ALT/SGPT) 23 U/L (16-63) Alkaline Phosphatase 52 U/L (46-116) Troponin I Quantitative 1.103 ng/mL (0.000-0.055) FH-Reg-M-Type Natriuretic Peptide 7973 pg/mL (0-124) Total Protein 6.5 g/dL (6.4-8.2) Albumin 2.9 g/dL (3.4-5.0) Albumin/Globulin Ratio 0.8 (1.0-1.7) Thyroid Stimulating Hormone (TSH) < 0.007 uIU/mL (0.358-3.74) Free Thyroxine 0.65 ng/dL (0.76-1.46) Valproic Acid (Depakene) Level 20 mcg/mL (50-100) Valproic Acid Last Dose Date 02/23/20 Valproic Acid Last Dose Time 1900 Urine Collection Type Unknown Urine Color Yellow Urine Clarity Clear Urine pH 6.5 (<5.0-8.0) Urine Specific [place] <=1.005 (1.000-1.030) Urine Protein Negative mg/dL (NEG-TRACE) Urine Glucose (UA) Negative mg/dL (NEG) Urine Ketones (Stick) Negative mg/dL (NEG) Urine Blood Trace (NEG) Urine Nitrite Negative (NEG) Urine Bilirubin Negative (NEG) Urine Urobilinogen Dipstick 0.2 mg/dL (0.2 mg/dL) Urine Leukocyte Esterase Negative (NEG) Urine RBC Rare /HPF (0-2) Urine WBC Rare /HPF (0-4) Urine Squamous Epithelial Cells Occ /LPF Urine Amorphous Sediment Present /HPF Urine Bacteria 0 /HPF (0-FEW) Objective Assessment pt seen, consult dictated Plan Plan of Care / EDEL GOLD MD Feb 25, 2020 08:03
[2020-02-25 08:19] LABS: BASO % 0 % (0-3); EOS # 0.1 x10^3/uL (0.0-0.7); EOS % 2 % (0-3); HEMATOCRIT 37.9 % (39.0-53.0); HEMOGLOBIN 12.4 g/dL (13.0-17.5); LYMPH % 12 % (24-48); MEAN CORPUSCULAR HEMOGLOBIN 31 pg (25-35); MEAN CORPUSCULAR HGB CONC 33 g/dL (31-37); MEAN CORPUSCULAR VOLUME 94 fL (79-100); MONO # 0.3 x10^3/uL (0.0-1.1); MONO % 4 % (0-9); NEUT # 6.9 x10^3/uL (1.8-7.7); NEUT % 82 % (31-73); PLATELET COUNT 95 x10^3/uL (140-400); RED BLOOD COUNT 4.02 x10^6/uL (4.30-5.70); WHITE BLOOD COUNT 8.4 x10^3/uL (4.0-11.0)
--- NOTE | 2020-02-25 08:23 | CONS ---
DATE OF CONSULTATION: 02/25/2020 REQUESTING PHYSICIAN: Aryan Greenfield MD REASON FOR CONSULTATION: Pneumonia. HISTORY OF PRESENT ILLNESS: This is a 69-year-old gentleman with past medical history positive for hypopituitarism and hypothyroidism, who presented with not feeling well, had some nausea, vomiting and diarrhea a week ago. He says he felt dehydrated, had some cough, feeling dizzy. The patient had a fever when he came in, leukocytosis, acute renal failure and COVID is pending. The patient does have a chest x-ray showing pulmonary infiltrate. The patient has been given one dose of azithromycin, one dose of daptomycin, one dose of Rocephin and on Zosyn now. The patient is thirsty and wants to drink 7up. Denies any headache. Denies any nausea, vomiting, diarrhea, chest pain, shortness of breath, abdominal pain, urinary symptoms or bowel symptoms right now. PAST MEDICAL HISTORY: Had a pituitary surgery, has panhypopituitarism, hypothyroidism, dyslipidemia. Has had appendicectomy. SOCIAL HISTORY: Negative for smoking, alcohol or illicit drug use. ALLERGIES: LISTED ALLERGIC TO BACTRIM. CURRENT MEDICATIONS: Reviewed. REVIEW OF SYSTEMS: As per HPI, all other systems reviewed and are negative. PHYSICAL EXAMINATION: GENERAL: Alert, oriented gentleman, not in distress. VITAL SIGNS: Stable. His T-max was 100.2. HEENT: NAD. NECK: Supple, no JVP, no lymphadenopathy. LUNGS: Clear. HEART: S1, S2 regular. ABDOMEN: Benign. EXTREMITIES: No edema, cyanosis. SKIN: Unremarkable. NEUROLOGIC: The patient is alert, awake and appropriate. No focal neurologic deficit. LABORATORY DATA: White count is 16.4. BUN and creatinine is 42 and 3.4. BNP was 7973. Urinalysis unremarkable. Chest x-ray and abdominal CT reviewed. IMPRESSION: 1. Community-acquired pneumonia. 2. Severe dehydration. 3. Acute kidney injury. 4. Hypopituitarism. 5. Fever and leukocytosis. RECOMMENDATIONS: Continue Zosyn, add azithromycin as a regular dose. Supportive care and we will follow the cultures and continue to follow. Thank you very much, Dr. Greenfield, for giving me the opportunity to participate in this patient's care. EDEL GOLD MD DR: CHUY/otilia JOB#: [id number] / [id number]
[2020-02-25 08:30] LABS: CALCIUM 7.3 mg/dL (8.5-10.1); GFR 33.1; POTASSIUM 3.9 mmol/L (3.5-5.1)
[2020-02-25 08:40] LABS: ALBUMIN 2.1 g/dL (3.4-5.0); ALBUMIN/GLOBULIN RATIO 0.8 (1.0-1.7); MAGNESIUM 2.5 mg/dL (1.8-2.4); PHOSPHORUS 3.4 mg/dL (2.6-4.7); TOTAL BILIRUBIN 0.4 mg/dL (0.2-1.0); TOTAL PROTEIN 4.8 g/dL (6.4-8.2)
[2020-02-25] MEDS: AZITHROMYCIN 500 MG in IV NORMAL SALINE 250ML 250 ML IV SCH (09:54)
--- NOTE | 2020-02-25 12:36 | NUR ---
SS following for discharge planning. SS reviewed pt chart and discussed with pt RN. Pt is from home with spouse and is currently requiring oxygen. Pt on 5 liters nasal canula. COVID19 test pending. Pt on IV Azithromycin and IV Zosyn. SS will continue to follow for discharge planning.
--- NOTE | 2020-02-25 13:18 | PDOC ---
LEE GRULLON PHYSICIST [employer]STICS 02/25/20 1318: CARDIO Progress Notes Date and Time Date of Service 02/25/20 Time of Evaluation 1240 Subjective Subjective: No Chest Pain, No Palpitations Vitals Vitals Vital Signs Date Time Temp Pulse Resp B/P (MAP) Pulse Ox O2 Delivery O2 Flow Rate FiO2 02/25/20 12:00 Nasal Cannula 5.0 02/25/20 11:00 92 26 145/70 (95) 95 02/25/20 08:00 98.6 98.6 Weight Weight [ ] Input and Output Intake and Output Intake and Output 02/25/20 07:00 Intake Total 1842.5 ml Output Total 1200 ml Balance 642.5 ml Intake Oral 0 ml IV Total 1842.5 ml Output Urine Total 1200 ml # Voids 6 Laboratory Labs Laboratory Tests Test 02/24/20 22:30 02/25/20 08:10 Urine Collection Type Unknown Urine Color Yellow Urine Clarity Clear Urine pH 6.5 (<5.0-8.0) Urine Specific [place] <=1.005 (1.000-1.030) Urine Protein Negative mg/dL (NEG-TRACE) Urine Glucose (UA) Negative mg/dL (NEG) Urine Ketones (Stick) Negative mg/dL (NEG) Urine Blood Trace (NEG) Urine Nitrite Negative (NEG) Urine Bilirubin Negative (NEG) Urine Urobilinogen Dipstick 0.2 mg/dL (0.2 mg/dL) Urine Leukocyte Esterase Negative (NEG) Urine RBC Rare /HPF (0-2) Urine WBC Rare /HPF (0-4) Urine Squamous Epithelial Cells Occ /LPF Urine Amorphous Sediment Present /HPF Urine Bacteria 0 /HPF (0-FEW) White Blood Count 8.4 x10^3/uL (4.0-11.0) Red Blood Count 4.02 x10^6/uL (4.30-5.70) Hemoglobin 12.4 g/dL (13.0-17.5) Hematocrit 37.9 % (39.0-53.0) Mean Corpuscular Volume 94 fL (79-100) Mean Corpuscular Hemoglobin 31 pg (25-35) Mean Corpuscular Hemoglobin Concent 33 g/dL (31-37) Red Cell Distribution Width 15.0 % (11.5-14.5) Platelet Count 95 x10^3/uL (140-400) Neutrophils (%) (Auto) 82 % (31-73) Lymphocytes (%) (Auto) 12 % (24-48) Monocytes (%) (Auto) 4 % (0-9) Eosinophils (%) (Auto) 2 % (0-3) Basophils (%) (Auto) 0 % (0-3) Neutrophils # (Auto) 6.9 x10^3/uL (1.8-7.7) Lymphocytes # (Auto) 1.0 x10^3/uL (1.0-4.8) Monocytes # (Auto) 0.3 x10^3/uL (0.0-1.1) Eosinophils # (Auto) 0.1 x10^3/uL (0.0-0.7) Basophils # (Auto) 0.0 x10^3/uL (0.0-0.2) Sodium Level 145 mmol/L (136-145) Potassium Level 3.9 mmol/L (3.5-5.1) Chloride Level 110 mmol/L (98-107) Carbon Dioxide Level 21 mmol/L (21-32) Anion Gap 14 (6-14) Blood Urea Nitrogen 38 mg/dL (8-26) Creatinine 2.0 mg/dL (0.7-1.3) Estimated GFR (Cockcroft-Gault) 33.1 BUN/Creatinine Ratio 19 (6-20) Glucose Level 50 mg/dL (70-99) Calcium Level 7.3 mg/dL (8.5-10.1) Phosphorus Level 3.4 mg/dL (2.6-4.7) Magnesium Level 2.5 mg/dL (1.8-2.4) Total Bilirubin 0.4 mg/dL (0.2-1.0) Aspartate Amino Transf (AST/SGOT) 37 U/L (15-37) Alanine Aminotransferase (ALT/SGPT) 15 U/L (16-63) Alkaline Phosphatase 54 U/L (46-116) Troponin I Quantitative 0.358 ng/mL (0.000-0.055) Total Protein 4.8 g/dL (6.4-8.2) Albumin 2.1 g/dL (3.4-5.0) Albumin/Globulin Ratio 0.8 (1.0-1.7) Microbiology Micro Microbiology 02/24/20 Blood Culture - Preliminary, Resulted NO GROWTH AFTER 1 DAY Physical Exam HEENT: Neck Supple W Full Motion Chest: Symmetric Heart: RRR Neurology: alert Other Exams Visual exam conducted due to pending COVID. 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 Nausea/vomiting/diarrhea 2. Dyspnea secondary to PNA. COVID pending 3. Leukocytosis, fevers 4. HANNAH, dehydration. improved with IVFs 5. NSTEMI; peak 1.1. Most probably type II, demand ischemia in setting of HANNAH, PNA. CP free 6. Hypopituitarism Recommendations Add ASA Lipids panel Ongoing antibiotic therapy Echo if COVID negative to assess LV systolic function Consider outpatient ischemic evaluation Justicifation of Admission Dx: Justifications for Admission: Justification of Admission Dx: Yes Acute Renal Failure: 3-Fold Rise in Serum Crea LAYO DURON MD 02/25/20 2314: CARDIO Progress Notes Plan Plan Pt. seen and examined. Agree with above PAYMENT POSTER note. Supportive care. LEE GRULLON APRN Feb 25, 2020 13:18 LAYO DURON MD Feb 25, 2020 23:14
--- NOTE | 2020-02-25 13:49 | PDOC2 ---
CONSULT Date of Consult Date of Consult DATE: 02/25/20 TIME: 13:38 Reason for Consult Reason for Consult: HANNAH Source Source: Chart review, Patient History of Present Illness Reason for Visit: Pt is a 69-year-old CM with PMHx positive for hypopituitarism and hypothyroidism, who presented with c/o not feeling well, some nausea, vomiting and diarrhea a week ago. He says he felt dehydrated, had some cough, feeling dizzy. The patient had a fever when he came in, leukocytosis, acute renal failure and COVID is pending. CxR- Showing pulmonary infiltrate Currently he denies any nausea, vomiting, diarrhea No chest pain, shortness of breath, No abdominal pain, urinary symptoms or bowel symptoms right now. Past Medical History Cardiovascular: Hyperlipidemia GI: GERD Past Surgical History Past Surgical History: Appendectomy Family History Family History Non Contributory Current Problem List Problem List Problems Medical Problems: (1) Acute renal failure Status: Acute (2) CAP (community acquired pneumonia) Status: Acute (3) NSTEMI (non-ST elevated myocardial infarction) Status: Acute (4) Suspected 2019 novel coronavirus infection Status: Acute Current Medications Current Medications Current Medications Sodium Chloride 1,000 ml @ 1,000 mls/hr 1X ONCE IV Last administered on 02/24/20at 09:04; Start 02/24/20 at 09:00; Stop 02/24/20 at 09:59; Status DC Acetaminophen (Tylenol) 1,000 mg 1X ONCE PO Last administered on 02/24/20at 09:11; Start 02/24/20 at 09:30; Stop 02/24/20 at 09:31; Status DC Ceftriaxone Sodium (Rocephin) 1 gm 1X ONCE IVP Last administered on 02/24/20at 10:29; Start 02/24/20 at 10:30; Stop 02/24/20 at 10:31; Status DC Azithromycin 250 ml @ 250 mls/hr 1X ONCE IV Last administered on 02/24/20at 10:30; Start 02/24/20 at 10:30; Stop 02/24/20 at 11:29; Status DC Sodium Chloride 1,000 ml @ 1,000 mls/hr 1X ONCE IV Last administered on at 10:29; Start 02/24/20 at 10:30; Stop 02/24/20 at 11:29; Status DC Aspirin (Aspirin Chewable) 324 mg 1X ONCE PO Last administered on 02/24/20at 11:47; Start 02/24/20 at 11:30; Stop 02/24/20 at 11:31; Status DC Ondansetron HCl (Zofran) 4 mg PRN Q8HRS PRN IV NAUSEA/VOMITING Last administered on 02/25/20at 09:53; Start 02/24/20 at 11:30; Stop 02/25/20 at 11:29; Status DC Sodium Chloride 1,000 ml @ 125 mls/hr Q8H IV Last administered on 02/25/20at 03:08; Start 02/24/20 at 11:23; Stop 02/25/20 at 11:22; Status DC Daptomycin 460 mg/ Sodium Chloride 50 ml @ 100 mls/hr 1X ONCE IV Last administered on 02/24/20at 17:38; Start 02/24/20 at 18:00; Stop 02/24/20 at 18:29; Status DC Piperacillin Sod/ Tazobactam Sod (Zosyn Per Pharmacy) 1 each PRN DAILY PRN MC SEE COMMENTS; Start 02/24/20 at 17:00 Piperacillin Sod/ Tazobactam Sod 2.25 gm/Sodium Chloride 50 ml @ 100 mls/hr Q6HRS IV Last administered on 02/25/20at 12:12; Start 02/24/20 at 18:00 Acetaminophen (Tylenol) 650 mg PRN Q6HRS PRN PO PAIN Last administered on 02/24/20at 17:38; Start 02/24/20 at 17:30 Azithromycin 500 mg/Sodium Chloride 250 ml @ 250 mls/hr Q24H IV Last administered on 02/25/20at 09:54; Start 02/25/20 at 10:30 Active Scripts Active Morphine Sulfate 15 Mg Tablet 1 Tab PO PRN Q6-8HRS PRN Reported Hydrocodone-Apap 5-325 (Hydrocodone Bit/Acetaminophen) 1 Each Tablet 1 Tab PO PRN Q4-6HRS PRN Testosterone Cypionate 200 Mg/1 Ml Vial 0.75 Ml IM Q2WKS Clonazepam 0.5 Mg Tablet 0.5 Mg PO BIDACLD Prednisone 2.5 Mg Tablet 5 Mg PO DAILY Effexor Xr (Venlafaxine Hcl) 150 Mg Cap.er.24h 150 Mg PO DAILY Divalproex Sodium Er (Divalproex Sodium) 500 Mg Tab.er.24h 500 Mg PO BIDACLD Simvastatin 20 Mg Tablet 20 Mg PO HS Lansoprazole 30 Mg Capsule.dr 30 Mg PO DAILY Levo-T (Levothyroxine Sodium) 25 Mcg Tablet 25 Mcg PO DAILYAC Allergies Allergies: Coded Allergies: sulfamethoxazole (Verified Allergy, Intermediate, Rash, 12/19/16) trimethoprim (Verified Allergy, Intermediate, Rash, 12/19/16) ROS Review of System As per HPI, rest ROS is negative Physical Exam Physical Exam GENERAL: Alert, oriented , not in distress. HEENT: NAD. NECK: Supple, no JVP LUNGS: Clear, non labored HEART: S1, S2 regular. ABDOMEN: Benign. EXTREMITIES: No edema, cyanosis. SKIN: No rash NEUROLOGIC: alert, awake a No focal neurologic deficit No Prado, No CVA or SP tenderness Vital Signs Vital Signs Date Time Temp Pulse Resp B/P (MAP) Pulse Ox O2 Delivery O2 Flow Rate FiO2 02/25/20 12:00 Nasal Cannula 5.0 02/25/20 11:00 92 26 145/70 (95) 95 02/25/20 08:00 98.6 98.6 Assessment & Plan HANNAH - suspect Pre-renal sec to Dehydration due to Vomiting/Diarrhea Renal function improving UA unremarkable, CT scan Kidneys Unremarkable, E-Lytes stable Supportive care, Strict I9/O, avoid nephrotoxins Hypotension at presentation, BP improved Pneumonia - ? CAP, CoVid-19 Pending Fever and leukocytosis- On Abx per ID Hypopituitarism- On small dose of prednisone and Levothyroxine per home med list, defer to Primary Labs Labs Laboratory Tests Test 02/24/20 08:45 02/24/20 22:30 02/25/20 08:10 White Blood Count 16.4 x10^3/uL (4.0-11.0) 8.4 x10^3/uL (4.0-11.0) Red Blood Count 4.57 x10^6/uL (4.30-5.70) 4.02 x10^6/uL (4.30-5.70) Hemoglobin 14.2 g/dL (13.0-17.5) 12.4 g/dL (13.0-17.5) Hematocrit 42.0 % (39.0-53.0) 37.9 % (39.0-53.0) Mean Corpuscular Volume 92 fL (79-100) 94 fL (79-100) Mean Corpuscular Hemoglobin 31 pg (25-35) 31 pg (25-35) Mean Corpuscular Hemoglobin Concent 34 g/dL (31-37) 33 g/dL (31-37) Red Cell Distribution Width 14.4 % (11.5-14.5) 15.0 % (11.5-14.5) Platelet Count 135 x10^3/uL (140-400) 95 x10^3/uL (140-400) Neutrophils (%) (Auto) 81 % (31-73) 82 % (31-73) Lymphocytes (%) (Auto) 14 % (24-48) 12 % (24-48) Monocytes (%) (Auto) 4 % (0-9) 4 % (0-9) Eosinophils (%) (Auto) 0 % (0-3) 2 % (0-3) Basophils (%) (Auto) 1 % (0-3) 0 % (0-3) Neutrophils # (Auto) 13.2 x10^3/uL (1.8-7.7) 6.9 x10^3/uL (1.8-7.7) Lymphocytes # (Auto) 2.3 x10^3/uL (1.0-4.8) 1.0 x10^3/uL (1.0-4.8) Monocytes # (Auto) 0.7 x10^3/uL (0.0-1.1) 0.3 x10^3/uL (0.0-1.1) Eosinophils # (Auto) 0.0 x10^3/uL (0.0-0.7) 0.1 x10^3/uL (0.0-0.7) Basophils # (Auto) 0.2 x10^3/uL (0.0-0.2) 0.0 x10^3/uL (0.0-0.2) Segmented Neutrophils % 76 % (35-66) Band Neutrophils % 2 % (0-9) Lymphocytes % 19 % (24-48) Monocytes % 3 % (0-10) Platelet Estimate Adequate (ADEQUATE) Large Platelets Occ Giant Platelets Occ Polychromasia Slight Anisocytosis Slight Prothrombin Time 16.5 SEC (11.7-14.0) Prothromb Time International Ratio 1.4 (0.8-1.1) Activated Partial Thromboplast Time 41 SEC (24-38) Sodium Level 135 mmol/L (136-145) 145 mmol/L (136-145) Potassium Level 3.9 mmol/L (3.5-5.1) 3.9 mmol/L (3.5-5.1) Chloride Level 97 mmol/L (98-107) 110 mmol/L (98-107) Carbon Dioxide Level 30 mmol/L (21-32) 21 mmol/L (21-32) Anion Gap 8 (6-14) 14 (6-14) Blood Urea Nitrogen 42 mg/dL (8-26) 38 mg/dL (8-26) Creatinine 3.4 mg/dL (0.7-1.3) 2.0 mg/dL (0.7-1.3) Estimated GFR (Cockcroft-Gault) 17.9 33.1 BUN/Creatinine Ratio 12 (6-20) 19 (6-20) Glucose Level 73 mg/dL (70-99) 50 mg/dL (70-99) Lactic Acid Level 1.8 mmol/L (0.4-2.0) Calcium Level 8.4 mg/dL (8.5-10.1) 7.3 mg/dL (8.5-10.1) Total Bilirubin 0.6 mg/dL (0.2-1.0) 0.4 mg/dL (0.2-1.0) Aspartate Amino Transf (AST/SGOT) 38 U/L (15-37) 37 U/L (15-37) Alanine Aminotransferase (ALT/SGPT) 23 U/L (16-63) 15 U/L (16-63) Alkaline Phosphatase 52 U/L (46-116) 54 U/L (46-116) Troponin I Quantitative 1.103 ng/mL (0.000-0.055) 0.358 ng/mL (0.000-0.055) XP-Kkh-I-Type Natriuretic Peptide 7973 pg/mL (0-124) Total Protein 6.5 g/dL (6.4-8.2) 4.8 g/dL (6.4-8.2) Albumin 2.9 g/dL (3.4-5.0) 2.1 g/dL (3.4-5.0) Albumin/Globulin Ratio 0.8 (1.0-1.7) 0.8 (1.0-1.7) Thyroid Stimulating Hormone (TSH) < 0.007 uIU/mL (0.358-3.74) Free Thyroxine 0.65 ng/dL (0.76-1.46) Valproic Acid (Depakene) Level 20 mcg/mL (50-100) Valproic Acid Last Dose Date 02/23/20 Valproic Acid Last Dose Time 1900 Urine Collection Type Unknown Urine Color Yellow Urine Clarity Clear Urine pH 6.5 (<5.0-8.0) Urine Specific Elizabeth <=1.005 (1.000-1.030) Urine Protein Negative mg/dL (NEG-TRACE) Urine Glucose (UA) Negative mg/dL (NEG) Urine Ketones (Stick) Negative mg/dL (NEG) Urine Blood Trace (NEG) Urine Nitrite Negative (NEG) Urine Bilirubin Negative (NEG) Urine Urobilinogen Dipstick 0.2 mg/dL (0.2 mg/dL) Urine Leukocyte Esterase Negative (NEG) Urine RBC Rare /HPF (0-2) Urine WBC Rare /HPF (0-4) Urine Squamous Epithelial Cells Occ /LPF Urine Amorphous Sediment Present /HPF Urine Bacteria 0 /HPF (0-FEW) Phosphorus Level 3.4 mg/dL (2.6-4.7) Magnesium Level 2.5 mg/dL (1.8-2.4) Laboratory Tests Test 02/24/20 22:30 02/25/20 08:10 Urine Collection Type Unknown Urine Color Yellow Urine Clarity Clear Urine pH 6.5 (<5.0-8.0) Urine Specific Elizabeth <=1.005 (1.000-1.030) Urine Protein Negative mg/dL (NEG-TRACE) Urine Glucose (UA) Negative mg/dL (NEG) Urine Ketones (Stick) Negative mg/dL (NEG) Urine Blood Trace (NEG) Urine Nitrite Negative (NEG) Urine Bilirubin Negative (NEG) Urine Urobilinogen Dipstick 0.2 mg/dL (0.2 mg/dL) Urine Leukocyte Esterase Negative (NEG) Urine RBC Rare /HPF (0-2) Urine WBC Rare /HPF (0-4) Urine Squamous Epithelial Cells Occ /LPF Urine Amorphous Sediment Present /HPF Urine Bacteria 0 /HPF (0-FEW) White Blood Count 8.4 x10^3/uL (4.0-11.0) Red Blood Count 4.02 x10^6/uL (4.30-5.70) Hemoglobin 12.4 g/dL (13.0-17.5) Hematocrit 37.9 % (39.0-53.0) Mean Corpuscular Volume 94 fL (79-100) Mean Corpuscular Hemoglobin 31 pg (25-35) Mean Corpuscular Hemoglobin Concent 33 g/dL (31-37) Red Cell Distribution Width 15.0 % (11.5-14.5) Platelet Count 95 x10^3/uL (140-400) Neutrophils (%) (Auto) 82 % (31-73) Lymphocytes (%) (Auto) 12 % (24-48) Monocytes (%) (Auto) 4 % (0-9) Eosinophils (%) (Auto) 2 % (0-3) Basophils (%) (Auto) 0 % (0-3) Neutrophils # (Auto) 6.9 x10^3/uL (1.8-7.7) Lymphocytes # (Auto) 1.0 x10^3/uL (1.0-4.8) Monocytes # (Auto) 0.3 x10^3/uL (0.0-1.1) Eosinophils # (Auto) 0.1 x10^3/uL (0.0-0.7) Basophils # (Auto) 0.0 x10^3/uL (0.0-0.2) Sodium Level 145 mmol/L (136-145) Potassium Level 3.9 mmol/L (3.5-5.1) Chloride Level 110 mmol/L (98-107) Carbon Dioxide Level 21 mmol/L (21-32) Anion Gap 14 (6-14) Blood Urea Nitrogen 38 mg/dL (8-26) Creatinine 2.0 mg/dL (0.7-1.3) Estimated GFR (Cockcroft-Gault) 33.1 BUN/Creatinine Ratio 19 (6-20) Glucose Level 50 mg/dL (70-99) Calcium Level 7.3 mg/dL (8.5-10.1) Phosphorus Level 3.4 mg/dL (2.6-4.7) Magnesium Level 2.5 mg/dL (1.8-2.4) Total Bilirubin 0.4 mg/dL (0.2-1.0) Aspartate Amino Transf (AST/SGOT) 37 U/L (15-37) Alanine Aminotransferase (ALT/SGPT) 15 U/L (16-63) Alkaline Phosphatase 54 U/L (46-116) Troponin I Quantitative 0.358 ng/mL (0.000-0.055) Total Protein 4.8 g/dL (6.4-8.2) Albumin 2.1 g/dL (3.4-5.0) Albumin/Globulin Ratio 0.8 (1.0-1.7) Review All relevant outside records, renal labs, imaging studies, telemetry/EKG's were reviewed. Images Images Chest AP portable 02/24/2020. Reason for exam: Fever and confusion. The right hemidiaphragm is mildly elevated. There are patchy areas of opacity in the right mid and lower lung. These appear larger than typical atelectasis. Minimal atelectasis is suggested at the left base. There is no apparent pleural fluid. Heart size is normal. IMPRESSION: Elevated right hemidiaphragm. Patchy infiltrates on the right. CT abdomen /Pelvis-- The right hemidiaphragm remains elevated. There is greater opacity at the right lung base. This appears to consist of some groundglass infiltrate as well as more consolidative regions. These have vaguely nodular appearance, although there is no distinct mass. There is minimal atelectasis left lower lobe. The lung bases otherwise are clear. Low-attenuation areas are again seen in the liver and suggest cysts. One in the right lobe has increased in size, now measuring 3.9 cm versus 2.4 cm previously. However, it does not have suspicious features. The spleen appears normal. The kidneys show no mass or obstruction. The adrenal glands are not enlarged. The pancreas appears normal. No retroperitoneal or mesenteric adenopathy is seen. There is no apparent abdominal mass or inflammatory process. Images through the pelvis show no apparent abnormality of the distal ureters or bladder. No pelvic or inguinal adenopathy is seen. There is no apparent pelvic mass or inflammatory process. IMPRESSION: No apparent acute abnormality in the abdomen or pelvis. There is greater opacity at the right lung base compared to the prior CT. This appears to represent areas of infiltrate and probable lung consolidation, although there is a vaguely nodular appearance. This is presumably infectious/inflammatory, but radiographic follow-up is recommended to confirm clearing. ROBERTO LUNA MD Feb 25, 2020 13:49
--- NOTE | 2020-02-25 15:18 | EKG ---
[facility] [address] [place] [address] Test Date: 2020-02-24 Test Time: 10:03:42 Pat Name: HANNY LEE Department: Room: Gender: M Erp Pm: : 1950 Requested By: SURY CORNELIUS Order Number: [id number] Reading MD: Measurements Intervals [place] Rate: 98 P: 45 GA: 128 QRS: -6 QRSD: 76 T: 24 QT: 320 QTc: 410 Interpretive Statements SINUS RHYTHM LEFTWARD AXIS QRS(T) CONTOUR ABNORMALITY CONSIDER ANTEROLATERAL MYOCARDIAL DAMAGE POSSIBLY ABNORMAL ECG RI6.01 No previous ECG available for comparison
[2020-02-25] MEDS: ACETAMINOPHEN 325 MG TABLET. PO PRN ×2 (15:53→22:53)
[2020-02-25 16:30] LABS: CHOLESTEROL/HDL RATIO 5.8
--- NOTE | 2020-02-25 18:48 | HP ---
ADMIT DATE: 02/24/2020 CHIEF COMPLAINT AND HISTORY OF PRESENT ILLNESS: This 69-year-old white male is well known to me in followup in the office. 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 He has been feeling not well for a week or so, including nausea, vomiting, diarrhea, some cough, dizziness, running fevers, was found to have a leukocytosis, acute renal failure, COVID pending and the right lower lobe infiltrate, started on Zithromax and Rocephin and admitted through the Emergency Room with hydration. He was also hypotensive at the time of admission and had a white count of 19,000. PAST MEDICAL HISTORY: Remarkable for the pituitary surgery, appendectomy, hypothyroidism, dyslipidemia. MEDICATIONS: Brought with the patient, listed on the computer and have been addressed. ALLERGIES: HE IS ALLERGIC TO BACTRIM. SOCIAL HISTORY: He is nonsmoker, nondrinker, does not use drugs. Retired from the [employer]. FAMILY HISTORY: Noncontributory. REVIEW OF SYSTEMS: As mentioned above. PHYSICAL EXAMINATION: GENERAL: He is a well-developed, well-nourished white male in no acute distress. VITAL SIGNS: Stable. T-max since admission is 100.2. HEAD, EYES, EARS, NOSE AND THROAT: Unremarkable. NECK: Supple, without adenopathy or thyromegaly. CHEST: Clear to auscultation. HEART: Regular rate and rhythm. ABDOMEN: Soft, nontender, without hepatosplenomegaly or masses. EXTREMITIES: Without cyanosis, clubbing or edema. NEUROLOGIC: He is intact. IMPRESSION: Community-acquired pneumonia with severe dehydration, acute kidney injury, fever, leukocytosis, panhypopituitarism. PLAN: ID consult as well as Cardiology consult with an elevated BNP on admission. Renal consult and the patient will be monitored, managed and treated appropriately in the ICU. DANY JERONIMO MD DR: RANDI/otilia JOB#: [id number] / [id number]
[2020-02-26] MEDS: ONDANSETRON PF 4 MG/2 ML VIAL. IVP PRN ×2 (01:18→08:39)
[2020-02-26] MEDS: IV NORMAL SALINE 1000ML BAG 1,000 ML IV SCH ×3 (02:40→22:17)
[2020-02-26 03:00] VITALS: BP 120/78
[2020-02-26 05:37] LABS: CALCIUM 7.3 mg/dL (8.5-10.1); CREATININE 1.5 mg/dL (0.7-1.3); GFR 46.1; POTASSIUM 3.5 mmol/L (3.5-5.1)
[2020-02-26] MEDS: PIPERACILLIN/TAZOBACTAM 2.25 GM in IV NORMAL SALINE 50ML 50 ML IV SCH ×4 (05:44→23:55)
--- NOTE | 2020-02-26 05:58 | NUR ---
Received call from lab, patient's blood glucose 38. Went to go check on patient, patient sleeping, easily awakened. Patient alert and oriented but states he feels weird. Informed patient his blood sugar on his blood draw was low. Rechecked glucose on glucometer, resulted 36. Sat patient up and gave apple juice x3 d/t no dextrose protocol orders as patient is not diabetic. Left patient's room to page Dr. Greenfield after patient finished third apple juice. Informed Dr. Greenfield of situation, no orders received at this time. Will recheck patient's blood sugar in approx. 15 minutes. Will also pass along to day RN.
--- NOTE | 2020-02-26 06:24 | NUR ---
Patient's blood glucose now 45. Will enter hypoglycemia protocol order per hospital protocol, administer, and recheck glucose. Will pass along to day RN and notify Dr. Strange
[2020-02-26] MEDS ORDERED: DEXTROSE 50% 25 GM / 50ML DISP.SYRIN. IV PRN (06:30)
[2020-02-26 07:00] VITALS: BP 138/87
--- NOTE | 2020-02-26 07:46 | PDOC ---
DATE OF SERVICE: DATE: 02/26/20 TIME: 07:44 GENERAL General: vss and afebrile. awake and alert. chest with some basilar wheeze on right, heart regular, abdomen benign. creatinine decreased to 1.5 this am. hypoglycemic this am and diet advanced. recheck labs in am, otherwise same. VITAL SIGNS/I&O Vital Signs/I&O: Vital Signs Date Time Temp Pulse Resp B/P (MAP) Pulse Ox O2 Delivery O2 Flow Rate FiO2 02/26/20 07:00 97.9 68 18 138/87 (104) 92 Nasal Cannula 3.0 97.9 I & O 02/25/20 02/25/20 02/26/20 15:00 23:00 07:00 Intake Total 1810 ml 1480 ml Output Total 950 ml 425 ml 700 ml Balance 860 ml 1055 ml -700 ml ALLERGIES Allergies: Allergies Coded Allergies Type Severity Reaction Last Updated Verified sulfamethoxazole Allergy Intermediate Rash 12/19/16 Yes trimethoprim Allergy Intermediate Rash 12/19/16 Yes MEDS Medications: Current Medications Medications (Trade) Dose Ordered Sig/Shukri Route PRN Reason Start Time Stop Time Status Last Admin Dose Admin Azithromycin 500 mg/Sodium Chloride 250 ml @ 250 mls/hr Q24H IV 02/25/20 10:30 02/25/20 09:54 Sodium Chloride 1,000 ml @ 100 mls/hr Q10H IV 02/25/20 14:00 02/26/20 02:40 Ondansetron HCl (Zofran) 4 mg PRN Q6HRS PRN IVP NAUSEA/VOMITING 02/25/20 18:00 02/26/20 01:18 Dextrose (Dextrose 50%-Water Syringe) 12.5 gm PRN Q15MIN PRN IV SEE COMMENTS 02/26/20 06:30 02/26/20 06:28 LAB Lab: Laboratory Tests Test 02/25/20 08:10 02/26/20 03:35 02/26/20 05:46 02/26/20 06:16 White Blood Count 8.4 x10^3/uL (4.0-11.0) Red Blood Count 4.02 x10^6/uL (4.30-5.70) L Hemoglobin 12.4 g/dL (13.0-17.5) L Hematocrit 37.9 % (39.0-53.0) L Mean Corpuscular Volume 94 fL (79-100) Mean Corpuscular Hemoglobin 31 pg (25-35) Mean Corpuscular Hemoglobin Concent 33 g/dL (31-37) Red Cell Distribution Width 15.0 % (11.5-14.5) H Platelet Count 95 x10^3/uL (140-400) L Neutrophils (%) (Auto) 82 % (31-73) H Lymphocytes (%) (Auto) 12 % (24-48) L Monocytes (%) (Auto) 4 % (0-9) Eosinophils (%) (Auto) 2 % (0-3) Basophils (%) (Auto) 0 % (0-3) Neutrophils # (Auto) 6.9 x10^3/uL (1.8-7.7) Lymphocytes # (Auto) 1.0 x10^3/uL (1.0-4.8) Monocytes # (Auto) 0.3 x10^3/uL (0.0-1.1) Eosinophils # (Auto) 0.1 x10^3/uL (0.0-0.7) Basophils # (Auto) 0.0 x10^3/uL (0.0-0.2) Sodium Level 145 mmol/L (136-145) 138 mmol/L (136-145) Potassium Level 3.9 mmol/L (3.5-5.1) 3.5 mmol/L (3.5-5.1) Chloride Level 110 mmol/L (98-107) H 105 mmol/L (98-107) Carbon Dioxide Level 21 mmol/L (21-32) 25 mmol/L (21-32) Anion Gap 14 (6-14) 8 (6-14) Blood Urea Nitrogen 38 mg/dL (8-26) H 25 mg/dL (8-26) Creatinine 2.0 mg/dL (0.7-1.3) H 1.5 mg/dL (0.7-1.3) H Estimated GFR (Cockcroft-Gault) 33.1 46.1 BUN/Creatinine Ratio 19 (6-20) Glucose Level 50 mg/dL (70-99) L 38 mg/dL (70-99) *L Calcium Level 7.3 mg/dL (8.5-10.1) L 7.3 mg/dL (8.5-10.1) L Phosphorus Level 3.4 mg/dL (2.6-4.7) Magnesium Level 2.5 mg/dL (1.8-2.4) H Total Bilirubin 0.4 mg/dL (0.2-1.0) Aspartate Amino Transferase (AST) 37 U/L (15-37) Alanine Aminotransferase (ALT) 15 U/L (16-63) L Alkaline Phosphatase 54 U/L (46-116) Troponin I Quantitative 0.358 ng/mL (0.000-0.055) Total Protein 4.8 g/dL (6.4-8.2) L Albumin 2.1 g/dL (3.4-5.0) L Albumin/Globulin Ratio 0.8 (1.0-1.7) L Glucose (Fingerstick) 36 mg/dL (70-99) *L 45 mg/dL (70-99) *L Test 02/26/20 06:41 Glucose (Fingerstick) 191 mg/dL (70-99) H Laboratory Tests 02/25/20 08:10 Laboratory Tests 02/25/20 08:10 02/26/20 03:35 Justicifation of Admission Dx: Justifications for Admission: Justification of Admission Dx: Yes Acute Renal Failure: 3-Fold Rise in Serum Crea DANY JERONIMO MD Feb 26, 2020 07:46
[2020-02-26] MEDS: ASPIRIN ENTERIC COATED 81 MG TABLET.DR. PO SCH (08:39)
[2020-02-26] MEDS: ACETAMINOPHEN 325 MG TABLET. PO PRN (08:59)
--- NOTE | 2020-02-26 09:29 | PDOC ---
DATE OF SERVICE DATE: 02/26/20 TIME: 09:28 SUBJECTIVE ROS sleeping comfortably, arousable, states feeling ok . Denies SOB OBJECTIVE Vital Signs Vital Signs Date Time Temp Pulse Resp B/P (MAP) Pulse Ox O2 Delivery O2 Flow Rate FiO2 02/26/20 08:00 Nasal Cannula 4.0 02/26/20 07:00 97.9 68 18 138/87 (104) 92 97.9 I & 0 Intake and Output 02/26/20 07:00 Intake Total 3290 ml Output Total 2075 ml Balance 1215 ml Intake Oral 1920 ml IV Total 1370 ml Output Urine Total 2075 ml # Bowel Movements 1 PHYSICAL EXAM Physical Exam GENERAL: Alert, oriented , not in distress. HEENT: NAD. NECK: Supple, no JVP LUNGS: Clear, non labored HEART: S1, S2 regular. ABDOMEN: Benign. EXTREMITIES: No edema, cyanosis. 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 per home med list, defer to Primary COMMENT/RELEVANT DATA Meds Current Medications Medications (Trade) Dose Ordered Sig/Shukri Start Time Stop Time Status Last Admin Dose Admin Acetaminophen (Tylenol) 650 mg PRN Q6HRS PRN 02/24/20 17:30 02/26/20 08:59 650 MG Aspirin (Aspirin Chewable) 324 mg 1X ONCE 02/24/20 11:30 02/24/20 11:31 DC 02/24/20 11:47 324 MG Aspirin (Ecotrin) 81 mg [id number] 02/26/20 08:00 02/26/20 08:39 81 MG Azithromycin 250 ml @ 250 mls/hr 1X ONCE 02/24/20 10:30 02/24/20 11:29 DC 02/24/20 10:30 250 MLS/HR Azithromycin 500 mg/Sodium Chloride 250 ml @ 250 mls/hr Q24H 02/25/20 10:30 02/25/20 09:54 250 MLS/HR Ceftriaxone Sodium (Rocephin) 1 gm 1X ONCE 02/24/20 10:30 02/24/20 10:31 DC 02/24/20 10:29 1 GM Daptomycin 460 mg/ Sodium Chloride 50 ml @ 100 mls/hr 1X ONCE 02/24/20 18:00 02/24/20 18:29 DC 02/24/20 17:38 100 MLS/HR Dextrose (Dextrose 50%-Water Syringe) 12.5 gm PRN Q15MIN PRN 02/26/20 06:30 02/26/20 06:28 25 GM Ondansetron HCl (Zofran) 4 mg PRN Q6HRS PRN 02/25/20 18:00 02/26/20 08:39 4 MG Piperacillin Sod/ Tazobactam Sod (Zosyn Per Pharmacy) 1 each PRN DAILY PRN 02/24/20 17:00 Piperacillin Sod/ Tazobactam Sod 2.25 gm/Sodium Chloride 50 ml @ 100 mls/hr Q6HRS 02/24/20 18:00 02/26/20 05:44 100 MLS/HR Sodium Chloride 1,000 ml @ 100 mls/hr Q10H 02/25/20 14:00 02/26/20 02:40 100 MLS/HR Lab Laboratory Tests Test 02/26/20 03:35 02/26/20 05:46 02/26/20 06:16 02/26/20 06:41 Sodium Level 138 mmol/L (136-145) Potassium Level 3.5 mmol/L (3.5-5.1) Chloride Level 105 mmol/L (98-107) Carbon Dioxide Level 25 mmol/L (21-32) Anion Gap 8 (6-14) Blood Urea Nitrogen 25 mg/dL (8-26) Creatinine 1.5 mg/dL (0.7-1.3) Estimated GFR (Cockcroft-Gault) 46.1 Glucose Level 38 mg/dL (70-99) Calcium Level 7.3 mg/dL (8.5-10.1) Glucose (Fingerstick) 36 mg/dL (70-99) 45 mg/dL (70-99) 191 mg/dL (70-99) Results All relevant outside records, renal labs, imaging studies, telemetry/EKG's were reviewed. Justicifation of Admission Dx: Justifications for Admission: Justification of Admission Dx: Yes Acute Renal Failure: 3-Fold Rise in Serum Crea ROBERTO LUNA MD Feb 26, 2020 09:29
--- NOTE | 2020-02-26 10:31 | NUR ---
SW following. Discussed with RN, pt from home, 3L oxygen, clear liquid diet. RN ordering PT/OT. Currently on IV Zosyn, COVID-19 negative. SW will continue to follow.
[2020-02-26 10:36] VITALS: BP 119/73
--- NOTE | 2020-02-26 10:43 | PDOC ---
Infectious Disease Note Subjective Subjective pt is feeling ok ROS ROS no n/v/d/sob/fever Vital Sign Vital Signs Vital Signs Date Time Temp Pulse Resp B/P (MAP) Pulse Ox O2 Delivery O2 Flow Rate FiO2 02/26/20 10:36 97.8 60 18 119/73 (88) 99 Nasal Cannula 3.0 97.8 Physical Exam PHYSICAL EXAM GENERAL: Alert, oriented gentleman, not in distress. VITAL SIGNS: Stable. His T-max was 100.2. HEENT: NAD. NECK: Supple, no JVP, no lymphadenopathy. LUNGS: Clear. HEART: S1, S2 regular. ABDOMEN: Benign. EXTREMITIES: No edema, cyanosis. SKIN: Unremarkable. NEUROLOGIC: The patient is alert, awake and appropriate. No focal neurologic deficit. Labs Lab Laboratory Tests Test 02/26/20 03:35 02/26/20 05:46 02/26/20 06:16 02/26/20 06:41 Sodium Level 138 mmol/L (136-145) Potassium Level 3.5 mmol/L (3.5-5.1) Chloride Level 105 mmol/L (98-107) Carbon Dioxide Level 25 mmol/L (21-32) Anion Gap 8 (6-14) Blood Urea Nitrogen 25 mg/dL (8-26) Creatinine 1.5 mg/dL (0.7-1.3) Estimated GFR (Cockcroft-Gault) 46.1 Glucose Level 38 mg/dL (70-99) Calcium Level 7.3 mg/dL (8.5-10.1) Glucose (Fingerstick) 36 mg/dL (70-99) 45 mg/dL (70-99) 191 mg/dL (70-99) Micro Microbiology 02/24/20 Blood Culture - Preliminary, Resulted NO GROWTH AFTER 2 DAYS Objective Assessment IMPRESSION: 1. Community-acquired pneumonia. 2. Severe dehydration. 3. Acute kidney injury. 4. Hypopituitarism. 5. Fever and leukocytosis. Plan Plan of Care cont antibiotics cont supportive care pt/ot EDEL GOLD MD Feb 26, 2020 10:43
[2020-02-26] MEDS: AZITHROMYCIN 500 MG in IV NORMAL SALINE 250ML 250 ML IV SCH (11:32)
[2020-02-26] MEDS ORDERED: ALPRAZolam 0.25 MG TABLET PO PRN (11:45)
[2020-02-26] MEDS ORDERED: HYDROcodone/APAP 5/325MG 1 TAB TABLET PO PRN (11:45)
--- NOTE | 2020-02-26 12:14 | PDOC ---
CARDIO Progress Notes Date and Time Date of Service 02/26/2020 Time of Evaluation 1030 Subjective Subjective: No Chest Pain, No shortness of breath, No Palpitations Vitals Vitals Vital Signs Date Time Temp Pulse Resp B/P (MAP) Pulse Ox O2 Delivery O2 Flow Rate FiO2 02/26/20 10:36 97.8 60 18 119/73 (88) 99 Nasal Cannula 3.0 97.8 Weight Weight [ ] Input and Output Intake and Output Intake and Output0 02/26/20 07:00 Intake Total 3290 ml Output Total 2075 ml Balance 1215 ml Intake Oral 1920 ml IV Total 1370 ml Output Urine Total 2075 ml # Bowel Movements 1 Laboratory Labs Laboratory Tests Test 02/26/20 03:35 02/26/20 05:46 02/26/20 06:16 02/26/20 06:41 Sodium Level 138 mmol/L (136-145) Potassium Level 3.5 mmol/L (3.5-5.1) Chloride Level 105 mmol/L (98-107) Carbon Dioxide Level 25 mmol/L (21-32) Anion Gap 8 (6-14) Blood Urea Nitrogen 25 mg/dL (8-26) Creatinine 1.5 mg/dL (0.7-1.3) Estimated GFR (Cockcroft-Gault) 46.1 Glucose Level 38 mg/dL (70-99) Calcium Level 7.3 mg/dL (8.5-10.1) Glucose (Fingerstick) 36 mg/dL (70-99) 45 mg/dL (70-99) 191 mg/dL (70-99) Test 02/26/20 11:11 02/26/20 11:26 Glucose (Fingerstick) 54 mg/dL (70-99) 76 mg/dL (70-99) Microbiology Micro Microbiology 02/24/20 Blood Culture - Preliminary, Resulted NO GROWTH AFTER 2 DAYS Physical Exam HEENT: Neck Supple W Full Motion Chest: Symmetric LUNGS: Other (diminished) Heart: RRR (SR no ectopies) Abdomen: Other (soft) Extremities: No Calf Tenderness Neurology: alert, oriented, follow commands Other Exams Discussed with deposit clerk Assessment 1. Nausea/vomiting/diarrhea: better 2. CAP. COVID negative 3. HANNAH, dehydration. improved with IVFs, nephrology following 5. NSTEMI; peak 1.1. Most probably type II, demand ischemia in setting of HANNAH, PNA. CP free 6. 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 Hypothyrodism: Secondary? 8. Hypoglycemic reaction: per PCP 9. Mild coaguloppathy: INR at 1.4 per PCP Recommendations ASA, statin Ongoing antibiotic therapy TTE today Consider outpatient ischemic evaluation Justicifation of Admission Dx: Justifications for Admission: Justification of Admission Dx: Yes Acute Renal Failure: 3-Fold Rise in Serum Crea SAMINA MOREL [employer]T KNIFE FEEDER Feb 26, 2020 12:14
[2020-02-26] MEDS: clonazePAM 0.5 MG TABLET PO SCH ×2 (13:12→16:53)
[2020-02-26] MEDS: predniSONE 5 MG TABLET PO SCH (13:12)
[2020-02-26] MEDS: DIVALPROEX EXTENDED RELEASE 500 MG TAB.ER.24H. PO SCH ×2 (13:13→16:54)
[2020-02-26] MEDS: PANTOPRAZOLE 40 MG TABLET.DR. PO SCH (13:13)
[2020-02-26] MEDS: LACTOBACILLUS RHAMNOSUS GG 1 CAPSULE. PO SCH ×2 (14:45→22:17)
[2020-02-26 14:48] VITALS: BP 122/70
[2020-02-26] MEDS: VENLAFAXINE 50 MG TABLET. PO SCH ×2 (16:54→22:17)
[2020-02-26] MEDS: MORPHINE IR 15 MG TABLET PO PRN (17:51)
[2020-02-26 19:00] VITALS: BP 106/73
[2020-02-26] MEDS: SIMVASTATIN 20 MG TABLET PO SCH (22:17)
[2020-02-26 23:11] VITALS: BP 143/91
[2020-02-27] MEDS: MORPHINE IR 15 MG TABLET PO PRN ×2 (02:36→22:03)
[2020-02-27 02:53] VITALS: BP 118/88
[2020-02-27] MEDS: PIPERACILLIN/TAZOBACTAM 2.25 GM in IV NORMAL SALINE 50ML 50 ML IV SCH (05:38)
[2020-02-27 05:59] LABS: BASO # 0.1 x10^3/uL (0.0-0.2); BASO % 1 % (0-3); EOS # 0.1 x10^3/uL (0.0-0.7); EOS % 1 % (0-3); HEMATOCRIT 33.1 % (39.0-53.0); HEMOGLOBIN 11.4 g/dL (13.0-17.5); LYMPH # 1.2 x10^3/uL (1.0-4.8); LYMPH % 22 % (24-48); MEAN CORPUSCULAR HEMOGLOBIN 32 pg (25-35); MEAN CORPUSCULAR HGB CONC 35 g/dL (31-37); MEAN CORPUSCULAR VOLUME 91 fL (79-100); MONO # 0.4 x10^3/uL (0.0-1.1); MONO % 7 % (0-9); NEUT % 69 % (31-73); PLATELET COUNT 124 x10^3/uL (140-400); RED BLOOD COUNT 3.63 x10^6/uL (4.30-5.70); WHITE BLOOD COUNT 5.7 x10^3/uL (4.0-11.0)
[2020-02-27] MEDS: IV NORMAL SALINE 1000ML BAG 1,000 ML IV SCH ×2 (06:00→15:14)
[2020-02-27 06:16] LABS: CALCIUM 7.5 mg/dL (8.5-10.1); CREATININE 1.4 mg/dL (0.7-1.3); POTASSIUM 4.1 mmol/L (3.5-5.1)
[2020-02-27 06:51] VITALS: BP 111/76
--- NOTE | 2020-02-27 07:30 | PDOC ---
DATE OF SERVICE: DATE: 02/27/20 TIME: 07:29 GENERAL General: vss and afebrile. awake and alert. anxious and started low dose xanax yesterday. creatinine down to 1.4 this am and platelet increased to 125K. exam stable. continue antibiotics per ID. VITAL SIGNS/I&O Vital Signs/I&O: Vital Signs Date Time Temp Pulse Resp B/P (MAP) Pulse Ox O2 Delivery O2 Flow Rate FiO2 02/27/20 06:51 97.7 70 18 111/76 (88) 90 Nasal Cannula 2.0 97.7 I & O 02/26/20 02/26/20 02/27/20 15:00 23:00 07:00 Intake Total 200 ml Output Total 250 ml 300 ml Balance -50 ml -300 ml ALLERGIES Allergies: Allergies Coded Allergies Type Severity Reaction Last Updated Verified sulfamethoxazole Allergy Intermediate Rash 12/19/16 Yes trimethoprim Allergy Intermediate Rash 12/19/16 Yes MEDS Medications: Current Medications Medications (Trade) Dose Ordered Sig/Shukri Route PRN Reason Start Time Stop Time Status Last Admin Dose Admin Aspirin (Ecotrin) 81 mg DAILYWBKFT PO 02/26/20 08:00 02/26/20 08:39 Clonazepam (KlonoPIN) 0.5 mg BIDACLD PO 02/26/20 12:00 02/26/20 16:53 Divalproex Sodium (Depakote Er) 500 mg BIDACLD PO 02/26/20 12:00 02/26/20 16:54 Acetaminophen/ Hydrocodone Bitart (Lortab 5/325) 1 tab PRN Q6HRS PRN PO MODERATE PAIN 02/26/20 11:45 02/26/20 13:12 Morphine Sulfate (Morphine Ir) 15 mg PRN BID PRN PO SEVERE PAIN 7-10 02/26/20 11:45 02/27/20 02:36 Simvastatin (Zocor) 20 mg HS PO 02/26/20 21:00 02/26/20 22:17 Prednisone (Prednisone) 5 mg DAILY PO 02/26/20 12:00 02/26/20 13:12 Venlafaxine HCl (Effexor) 50 mg TID PO 02/26/20 14:00 02/26/20 22:17 Pantoprazole Sodium (Protonix) 40 mg DAILYAC PO 02/26/20 11:45 02/26/20 13:13 Lactobacillus Rhamnosus (Culturelle) 1 cap BID PO 02/26/20 13:30 02/26/20 22:17 LAB Lab: Laboratory Tests Test 02/26/20 11:11 02/26/20 11:26 02/26/20 16:33 02/26/20 20:16 Glucose (Fingerstick) 54 mg/dL (70-99) L 76 mg/dL (70-99) 77 mg/dL (70-99) 127 mg/dL (70-99) H Test 02/27/20 02:31 02/27/20 03:50 02/27/20 06:49 Glucose (Fingerstick) 99 mg/dL (70-99) 81 mg/dL (70-99) White Blood Count 5.7 x10^3/uL (4.0-11.0) Red Blood Count 3.63 x10^6/uL (4.30-5.70) L Hemoglobin 11.4 g/dL (13.0-17.5) L Hematocrit 33.1 % (39.0-53.0) L Mean Corpuscular Volume 91 fL (79-100) Mean Corpuscular Hemoglobin 32 pg (25-35) Mean Corpuscular Hemoglobin Concent 35 g/dL (31-37) Red Cell Distribution Width 15.0 % (11.5-14.5) H Platelet Count 124 x10^3/uL (140-400) L Neutrophils (%) (Auto) 69 % (31-73) Lymphocytes (%) (Auto) 22 % (24-48) L Monocytes (%) (Auto) 7 % (0-9) Eosinophils (%) (Auto) 1 % (0-3) Basophils (%) (Auto) 1 % (0-3) Neutrophils # (Auto) 4.0 x10^3/uL (1.8-7.7) Lymphocytes # (Auto) 1.2 x10^3/uL (1.0-4.8) Monocytes # (Auto) 0.4 x10^3/uL (0.0-1.1) Eosinophils # (Auto) 0.1 x10^3/uL (0.0-0.7) Basophils # (Auto) 0.1 x10^3/uL (0.0-0.2) Sodium Level 139 mmol/L (136-145) Potassium Level 4.1 mmol/L (3.5-5.1) Chloride Level 106 mmol/L (98-107) Carbon Dioxide Level 26 mmol/L (21-32) Anion Gap 7 (6-14) Blood Urea Nitrogen 15 mg/dL (8-26) Creatinine 1.4 mg/dL (0.7-1.3) H Estimated GFR (Cockcroft-Gault) 50.0 Glucose Level 80 mg/dL (70-99) Calcium Level 7.5 mg/dL (8.5-10.1) L Laboratory Tests 02/27/20 03:50 Laboratory Tests 02/27/20 03:50 Justicifation of Admission Dx: Justifications for Admission: Justification of Admission Dx: Yes Acute Renal Failure: 3-Fold Rise in Serum Crea DANY JERONIMO MD Feb 27, 2020 07:30
[2020-02-27] MEDS: ASPIRIN ENTERIC COATED 81 MG TABLET.DR. PO SCH (08:45)
[2020-02-27] MEDS: predniSONE 5 MG TABLET PO SCH (08:45)
[2020-02-27] MEDS: LACTOBACILLUS RHAMNOSUS GG 1 CAPSULE. PO SCH ×2 (08:45→22:03)
[2020-02-27] MEDS: PANTOPRAZOLE 40 MG TABLET.DR. PO SCH (08:45)
[2020-02-27] MEDS ORDERED: LANSOPRAZOLE 30 MG PO SCH (09:00)
--- NOTE | 2020-02-27 09:09 | PDOC ---
Infectious Disease Note Subjective Subjective pt is feeling ok ROS ROS no n/v/d/sob Vital Sign Vital Signs Vital Signs Date Time Temp Pulse Resp B/P (MAP) Pulse Ox O2 Delivery O2 Flow Rate FiO2 02/27/20 06:51 97.7 70 18 111/76 (88) 90 Nasal Cannula 2.0 97.7 Physical Exam PHYSICAL EXAM GENERAL: Alert, oriented gentleman, not in distress. VITAL SIGNS: Stable. HEENT: NAD. NECK: Supple, no JVP, no lymphadenopathy. LUNGS: Clear. HEART: S1, S2 regular. ABDOMEN: Benign. EXTREMITIES: No edema, cyanosis. SKIN: Unremarkable. NEUROLOGIC: The patient is alert, awake and appropriate. No focal neurologic deficit. Labs Lab Laboratory Tests Test 02/26/20 11:11 02/26/20 11:26 02/26/20 16:33 02/26/20 20:16 Glucose (Fingerstick) 54 mg/dL (70-99) 76 mg/dL (70-99) 77 mg/dL (70-99) 127 mg/dL (70-99) Test 02/27/20 02:31 02/27/20 03:50 02/27/20 06:49 Glucose (Fingerstick) 99 mg/dL (70-99) 81 mg/dL (70-99) White Blood Count 5.7 x10^3/uL (4.0-11.0) Red Blood Count 3.63 x10^6/uL (4.30-5.70) Hemoglobin 11.4 g/dL (13.0-17.5) Hematocrit 33.1 % (39.0-53.0) Mean Corpuscular Volume 91 fL (79-100) Mean Corpuscular Hemoglobin 32 pg (25-35) Mean Corpuscular Hemoglobin Concent 35 g/dL (31-37) Red Cell Distribution Width 15.0 % (11.5-14.5) Platelet Count 124 x10^3/uL (140-400) Neutrophils (%) (Auto) 69 % (31-73) Lymphocytes (%) (Auto) 22 % (24-48) Monocytes (%) (Auto) 7 % (0-9) Eosinophils (%) (Auto) 1 % (0-3) Basophils (%) (Auto) 1 % (0-3) Neutrophils # (Auto) 4.0 x10^3/uL (1.8-7.7) Lymphocytes # (Auto) 1.2 x10^3/uL (1.0-4.8) Monocytes # (Auto) 0.4 x10^3/uL (0.0-1.1) Eosinophils # (Auto) 0.1 x10^3/uL (0.0-0.7) Basophils # (Auto) 0.1 x10^3/uL (0.0-0.2) Sodium Level 139 mmol/L (136-145) Potassium Level 4.1 mmol/L (3.5-5.1) Chloride Level 106 mmol/L (98-107) Carbon Dioxide Level 26 mmol/L (21-32) Anion Gap 7 (6-14) Blood Urea Nitrogen 15 mg/dL (8-26) Creatinine 1.4 mg/dL (0.7-1.3) Estimated GFR (Cockcroft-Gault) 50.0 Glucose Level 80 mg/dL (70-99) Calcium Level 7.5 mg/dL (8.5-10.1) Micro Microbiology 02/24/20 Blood Culture - Preliminary, Resulted NO GROWTH AFTER 2 DAYS Objective Assessment IMPRESSION: 1. Community-acquired pneumonia. 2. Severe dehydration. 3. Acute kidney injury. 4. Hypopituitarism. 5. Fever and leukocytosis. Plan Plan of Care cont antibiotics,, change to po augmentin cont supportive care pt/ot EDEL GOLD MD Feb 27, 2020 09:09
--- NOTE | 2020-02-27 10:05 | NUR ---
SW following. Discussed with RN and Dr. Knight, pt from home with , now on room air, soft mechanical diet. IV abx will be switched to oral at discharge. PT/OT ordered yesterday, Dr. Greenfield advised RN, possible discharge home tomorrow (02/28/2020). EZE will continue to follow.
--- NOTE | 2020-02-27 10:20 | PDOC ---
DATE OF SERVICE DATE: 02/27/20 TIME: 10:18 SUBJECTIVE ROS stable OBJECTIVE Vital Signs Vital Signs Date Time Temp Pulse Resp B/P (MAP) Pulse Ox O2 Delivery O2 Flow Rate FiO2 02/27/20 06:51 97.7 70 18 111/76 (88) 90 Nasal Cannula 2.0 97.7 I & 0 Intake and Output 02/27/20 07:00 Intake Total 200 ml Output Total 550 ml Balance -350 ml Intake Oral 200 ml Output Urine Total 550 ml # Voids 3 # Bowel Movements 1 PHYSICAL EXAM Physical Exam GENERAL: Alert, oriented , not in distress. HEENT: NAD. NECK: Supple, no JVP LUNGS: Clear, non labored HEART: S1, S2 regular. ABDOMEN: Benign. EXTREMITIES: No edema, cyanosis. 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 per home med list, defer to Primary COMMENT/RELEVANT DATA Meds Current Medications Medications (Trade) Dose Ordered Sig/Shukri Start Time Stop Time Status Last Admin Dose Admin Acetaminophen (Tylenol) 650 mg PRN Q6HRS PRN 02/24/20 17:30 02/26/20 08:59 650 MG Acetaminophen/ Hydrocodone Bitart (Lortab 5/325) 1 tab PRN Q6HRS PRN 02/26/20 11:45 02/26/20 13:12 1 TAB Alprazolam (Xanax) 0.25 mg PRN Q8HRS PRN 02/26/20 11:45 Aspirin (Aspirin Chewable) 324 mg 1X ONCE 02/24/20 11:30 02/24/20 11:31 DC 02/24/20 11:47 324 MG Aspirin (Ecotrin) 81 mg DAILYWBKFT 02/26/20 08:00 02/27/20 08:45 81 MG Azithromycin 250 ml @ 250 mls/hr 1X ONCE 02/24/20 10:30 8/2/20 11:29 DC 02/24/20 10:30 250 MLS/HR Azithromycin 500 mg/Sodium Chloride 250 ml @ 250 mls/hr Q24H 02/25/20 10:30 02/26/20 11:32 250 MLS/HR Ceftriaxone Sodium (Rocephin) 1 gm 1X ONCE 02/24/20 10:30 02/24/20 10:31 DC 02/24/20 10:29 1 GM Clonazepam (KlonoPIN) 0.5 mg BIDACLD 02/26/20 12:00 02/26/20 16:53 0.5 MG Daptomycin 460 mg/ Sodium Chloride 50 ml @ 100 mls/hr 1X ONCE 02/24/20 18:00 02/24/20 18:29 DC 02/24/20 17:38 100 MLS/HR Dextrose (Dextrose 50%-Water Syringe) 12.5 gm PRN Q15MIN PRN 02/26/20 06:30 02/26/20 06:28 25 GM Divalproex Sodium (Depakote Er) 500 mg BIDACLD 02/26/20 12:00 02/26/20 16:54 500 MG Lactobacillus Rhamnosus (Culturelle) 1 cap BID 02/26/20 13:30 02/27/20 08:45 1 CAP Morphine Sulfate (Morphine Ir) 15 mg PRN BID PRN 02/26/20 11:45 02/27/20 02:36 15 MG Non-Formulary Medication (Lansoprazole ) 30 mg DAILY 02/27/20 09:00 UNV Ondansetron HCl (Zofran) 4 mg PRN Q6HRS PRN 02/25/20 18:00 02/26/20 08:39 4 MG Pantoprazole Sodium (Protonix) 40 mg DAILYAC 02/26/20 11:45 02/27/20 08:45 40 MG Piperacillin Sod/ Tazobactam Sod (Zosyn Per Pharmacy) 1 each PRN DAILY PRN 02/24/20 17:00 Piperacillin Sod/ Tazobactam Sod 2.25 gm/Sodium Chloride 50 ml @ 100 mls/hr Q6HRS 02/24/20 18:00 02/27/20 05:38 100 MLS/HR Prednisone (Prednisone) 5 mg DAILY 02/26/20 12:00 02/27/20 08:45 5 MG Simvastatin (Zocor) 20 mg HS 02/26/20 21:00 02/26/20 22:17 20 MG Sodium Chloride 1,000 ml @ 100 mls/hr Q10H 02/25/20 14:00 02/26/20 22:17 100 MLS/HR Testosterone Cypionate (Depo-Testosterone) 150 mg Q2WKS 03/03/20 09:00 Venlafaxine HCl (Effexor) 50 mg TID 02/26/20 14:00 02/26/20 22:17 50 MG Lab Laboratory Tests Test 02/26/20 11:11 02/26/20 11:26 02/26/20 16:33 02/26/20 20:16 Glucose (Fingerstick) 54 mg/dL (70-99) 76 mg/dL (70-99) 77 mg/dL (70-99) 127 mg/dL (70-99) Test 02/27/20 02:31 02/27/20 03:50 02/27/20 06:49 Glucose (Fingerstick) 99 mg/dL (70-99) 81 mg/dL (70-99) White Blood Count 5.7 x10^3/uL (4.0-11.0) Red Blood Count 3.63 x10^6/uL (4.30-5.70) Hemoglobin 11.4 g/dL (13.0-17.5) Hematocrit 33.1 % (39.0-53.0) Mean Corpuscular Volume 91 fL (79-100) Mean Corpuscular Hemoglobin 32 pg (25-35) Mean Corpuscular Hemoglobin Concent 35 g/dL (31-37) Red Cell Distribution Width 15.0 % (11.5-14.5) Platelet Count 124 x10^3/uL (140-400) Neutrophils (%) (Auto) 69 % (31-73) Lymphocytes (%) (Auto) 22 % (24-48) Monocytes (%) (Auto) 7 % (0-9) Eosinophils (%) (Auto) 1 % (0-3) Basophils (%) (Auto) 1 % (0-3) Neutrophils # (Auto) 4.0 x10^3/uL (1.8-7.7) Lymphocytes # (Auto) 1.2 x10^3/uL (1.0-4.8) Monocytes # (Auto) 0.4 x10^3/uL (0.0-1.1) Eosinophils # (Auto) 0.1 x10^3/uL (0.0-0.7) Basophils # (Auto) 0.1 x10^3/uL (0.0-0.2) Sodium Level 139 mmol/L (136-145) Potassium Level 4.1 mmol/L (3.5-5.1) Chloride Level 106 mmol/L (98-107) Carbon Dioxide Level 26 mmol/L (21-32) Anion Gap 7 (6-14) Blood Urea Nitrogen 15 mg/dL (8-26) Creatinine 1.4 mg/dL (0.7-1.3) Estimated GFR (Cockcroft-Gault) 50.0 Glucose Level 80 mg/dL (70-99) Calcium Level 7.5 mg/dL (8.5-10.1) Results All relevant outside records, renal labs, imaging studies, telemetry/EKG's were reviewed. Justicifation of Admission Dx: Justifications for Admission: Justification of Admission Dx: Yes Acute Renal Failure: 3-Fold Rise in Serum Crea ROBERTO LUNA MD Feb 27, 2020 10:20
[2020-02-27 10:47] VITALS: BP 115/74
[2020-02-27] MEDS: VENLAFAXINE 50 MG TABLET. PO SCH ×3 (10:55→22:03)
[2020-02-27] MEDS: AZITHROMYCIN 500 MG in IV NORMAL SALINE 250ML 250 ML IV SCH (10:56)
--- NOTE | 2020-02-27 11:36 | CARD ---
MR#: [id number] Date of Study: 02/27/2020 Ordering Physician: LEE GRULLON, Referring Physician: LEE GRULLON, Tech: Melissa Palomares FREDA APPROVED REPORT EXAM: Two-dimensional and M-mode echocardiogram with Doppler and color Doppler. Other Information Quality : Good INDICATION Elevated Troponin 2D DIMENSIONS RVDd2.5 (2.9-3.5cm)Left Atrium(2D)3.5 (1.6-4.0cm) IVSd0.8 (0.7-1.1cm)Aortic Root(2D)2.9 (2.0-3.7cm) LVDd4.3 (3.9-5.9cm)LVOT Diameter2.2 (1.8-2.4cm) PWd0.8 (0.7-1.1cm)LVDs3.0 (2.5-4.0cm) FS (%) 30.7 %SV49.1 ml LVEF(%)58.5 (>50%) Aortic Valve AoV Peak Luis.127.1cm/sAoV VTI20.1cm AO Peak GR.6.5mmHgLVOT Peak Luis.127.6cm/s AO Mean GR.3mmHgAVA (VMAX)3.98cm2 MALCOLM (VTI)4.30cm2 Mitral Valve MV E Eaeztxrw65.6cm/sMV DECEL FONA362ya MV A Sgeidwfs26.1cm/sE/A Ratio0.8 Tricuspid Valve TR P. Jhudlpyk892tp/sRAP QJSJXDNA38fnZh TR Peak Gr.53bzCvWGTX99hsHk Pulmonary Vein S1 Bkwsfads14.4cm/sD2 Rbumnalp81.5cm/s LEFT VENTRICLE The left ventricle is normal size. There is normal left ventricular wall thickness. Left ventricle sy stolic function is normal. The Ejection Fraction is 55%. There is normal LV segmental wall motion. Tr ansmitral Doppler flow pattern is Grade I-abnormal relaxation pattern. RIGHT VENTRICLE The right ventricle is normal size. The right ventricular systolic function is normal. ATRIA The left atrium size is normal. The right atrium is mildly dilated. The interatrial septum is intact with no evidence for an atrial septal defect or patent foramen ovale as noted on 2-D or Doppler imagi ng. AORTIC VALVE The aortic valve is calcified but opens well. Doppler and Color Flow revealed no significant aortic r egurgitation. There is no significant aortic valvular stenosis. MITRAL VALVE The mitral valve is normal in structure and function. There is no evidence of mitral valve prolapse. There is no mitral valve stenosis. Doppler and Color-flow revealed trace mitral regurgitation. TRICUSPID VALVE The tricuspid valve is normal in structure and function. Doppler and Color Flow revealed mild tricusp id regurgitation. There is severe pulmonary hypertension. The PA pressure was estimated at 72 mmHg. T here is no tricuspid valve stenosis. PULMONIC VALVE The pulmonic valve is not well visualized. Doppler and Color Flow revealed trace to mild pulmonic lee vular regurgitation. There is no pulmonic valvular stenosis. GREAT VESSELS The aortic root is normal in size. The ascending aorta is not well seen. The IVC is dilated and colla pses <50% with inspiration. PERICARDIAL EFFUSION There is no evidence of significant pericardial effusion. Critical Notification Critical Value: No <Conclusion> Left ventricle systolic function is normal. The Ejection Fraction is 55%. There is normal LV segmental wall motion. Transmitral Doppler flow pattern is Grade I-abnormal relaxation pattern. Trace mitral regurgitation. Mild tricuspid regurgitation. There is severe pulmonary hypertension. The PA pressure was estimated at 72 mmHg. There is no evidence of significant pericardial effusion. Signed by : Roe Parker, Electronically Approved : 02/27/2020 11:36:47
[2020-02-27] MEDS: clonazePAM 0.5 MG TABLET PO SCH ×2 (12:52→17:11)
[2020-02-27] MEDS: DIVALPROEX EXTENDED RELEASE 500 MG TAB.ER.24H. PO SCH ×2 (12:52→17:14)
[2020-02-27 15:00] VITALS: BP 109/76
[2020-02-27 19:00] VITALS: BP 143/89
[2020-02-27] MEDS: SIMVASTATIN 20 MG TABLET PO SCH (22:03)
[2020-02-27] MEDS: AMOXICILLIN/K CLAV 875/125MG TABLET. PO SCH (22:03)
[2020-02-27 23:00] VITALS: BP 123/80
[2020-02-28] VITALS (7 sets, daily range): BP systolic 130–158; BP diastolic 78–93
[2020-02-28] MEDS: IV NORMAL SALINE 1000ML BAG 1,000 ML IV SCH ×3 (02:00→20:54)
[2020-02-28 08:01] LABS: CREATININE 1.3 mg/dL (0.7-1.3); GFR 54.4
--- NOTE | 2020-02-28 08:17 | PDOC ---
DATE OF SERVICE: DATE: 02/28/20 TIME: 08:15 GENERAL General: vss and afebrile. awake and alert and usual tangential conversation. still not feeling much better and appetite not good. hypogylcemic this am without symptoms felt related to starvation. continue same with possible dc am if doing better. renal function back to normal this am with creatinine down to 1.3. VITAL SIGNS/I&O Vital Signs/I&O: Vital Signs Date Time Temp Pulse Resp B/P (MAP) Pulse Ox O2 Delivery O2 Flow Rate FiO2 02/28/20 03:00 98.0 70 20 156/90 (112) 94 Room Air 98.0 I & O 02/27/20 02/27/20 02/28/20 15:00 23:00 07:00 Intake Total 420 ml 840 ml 200 ml Output Total 300 ml Balance 120 ml 840 ml 200 ml ALLERGIES Allergies: Allergies Coded Allergies Type Severity Reaction Last Updated Verified sulfamethoxazole Allergy Intermediate Rash 12/19/16 Yes trimethoprim Allergy Intermediate Rash 12/19/16 Yes MEDS Medications: Current Medications Medications (Trade) Dose Ordered Sig/Shukri Route PRN Reason Start Time Stop Time Status Last Admin Dose Admin Amoxicillin/ Clavulanate Potassium (Augmentin 875/ 125mg) 1 tab BID PO 02/27/20 21:00 02/27/20 22:03 LAB Lab: Laboratory Tests Test 02/27/20 11:01 02/27/20 17:01 02/27/20 21:00 02/28/20 06:25 Glucose (Fingerstick) 90 mg/dL (70-99) 99 mg/dL (70-99) 69 mg/dL (70-99) L Sodium Level 144 mmol/L (136-145) Potassium Level 4.0 mmol/L (3.5-5.1) Chloride Level 108 mmol/L (98-107) H Carbon Dioxide Level 29 mmol/L (21-32) Anion Gap 7 (6-14) Blood Urea Nitrogen 13 mg/dL (8-26) Creatinine 1.3 mg/dL (0.7-1.3) Estimated GFR (Cockcroft-Gault) 54.4 Glucose Level 63 mg/dL (70-99) L Calcium Level 8.0 mg/dL (8.5-10.1) L Test 02/28/20 07:19 Glucose (Fingerstick) 49 mg/dL (70-99) L Laboratory Tests 02/28/20 06:25 Justicifation of Admission Dx: Justifications for Admission: Justification of Admission Dx: Yes Acute Renal Failure: 3-Fold Rise in Serum Crea DANY JERONIMO MD Feb 28, 2020 08:17
[2020-02-28] MEDS: AMOXICILLIN/K CLAV 875/125MG TABLET. PO SCH ×2 (09:18→20:54)
[2020-02-28] MEDS: VENLAFAXINE 50 MG TABLET. PO SCH ×3 (09:18→20:54)
[2020-02-28] MEDS: predniSONE 5 MG TABLET PO SCH (09:18)
[2020-02-28] MEDS: DIVALPROEX EXTENDED RELEASE 500 MG TAB.ER.24H. PO SCH ×2 (09:18→18:00)
[2020-02-28] MEDS: AZITHROMYCIN 250 MG TABLET. PO SCH (09:19)
[2020-02-28] MEDS: ASPIRIN ENTERIC COATED 81 MG TABLET.DR. PO SCH (09:19)
[2020-02-28] MEDS: clonazePAM 0.5 MG TABLET PO SCH ×2 (09:19→17:59)
[2020-02-28] MEDS: LACTOBACILLUS RHAMNOSUS GG 1 CAPSULE. PO SCH ×2 (09:19→20:54)
[2020-02-28] MEDS: PANTOPRAZOLE 40 MG TABLET.DR. PO SCH (09:20)
--- NOTE | 2020-02-28 10:19 | NUR ---
SW following. Discussed with RN, possible discharge home later today, if pt sugars normal. PT/OT recommending home. RN advised no SW needs at this time. SW will continue to follow, should any discharge needs arise.
--- NOTE | 2020-02-28 11:00 | NUR ---
Patient irritable this am, appeared to have some difficulty with coping. In one instance when nurse asked the patient how he was feeling, he became angry, said he didn't ask women's age, and other statements that did not seem specifically related to conversation in process. Patient asked that he not be touched. Allowed patient to de-escalate self, as was not open to anything else. Patient did calm.
--- NOTE | 2020-02-28 11:51 | PDOC ---
DATE OF SERVICE DATE: 02/28/20 TIME: 11:50 SUBJECTIVE ROS stable OBJECTIVE Vital Signs Vital Signs Date Time Temp Pulse Resp B/P (MAP) Pulse Ox O2 Delivery O2 Flow Rate FiO2 02/28/20 11:00 98.1 66 18 134/82 (99) 91 Room Air 98.1 I & 0 Intake and Output 02/28/20 07:00 Intake Total 1460 ml Output Total 300 ml Balance 1160 ml Intake Oral 1460 ml Output Urine Total 300 ml # Voids 2 # Bowel Movements 1 PHYSICAL EXAM Physical Exam GENERAL: Alert, oriented , not in distress. HEENT: NAD. NECK: Supple, no JVP LUNGS: Clear, non labored HEART: S1, S2 regular. ABDOMEN: Benign. EXTREMITIES: No edema, cyanosis. 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 per home med list, defer to Primary COMMENT/RELEVANT DATA Meds Current Medications Medications (Trade) Dose Ordered Sig/Shukri Start Time Stop Time Status Last Admin Dose Admin Acetaminophen (Tylenol) 650 mg PRN Q6HRS PRN 02/24/20 17:30 02/26/20 08:59 650 MG Acetaminophen/ Hydrocodone Bitart (Lortab 5/325) 1 tab PRN Q6HRS PRN 02/26/20 11:45 02/26/20 13:12 1 TAB Alprazolam (Xanax) 0.25 mg PRN Q8HRS PRN 02/26/20 11:45 Amoxicillin/ Clavulanate Potassium (Augmentin 875/ 125mg) 1 tab BID 02/27/20 21:00 02/28/20 09:18 1 TAB Aspirin (Aspirin Chewable) 324 mg 1X ONCE 02/24/20 11:30 02/24/20 11:31 DC 02/24/20 11:47 324 MG Aspirin (Ecotrin) 81 mg DAILYWBKFT 02/26/20 08:00 02/28/20 09:19 81 MG Azithromycin (Zithromax) 500 mg DAILY 02/28/20 09:00 02/28/20 09:19 500 MG Azithromycin 500 mg/Sodium Chloride 250 ml @ 250 mls/hr Q24H 02/25/20 10:30 02/27/20 15:25 DC 02/27/20 10:56 250 MLS/HR Ceftriaxone Sodium (Rocephin) 1 gm 1X ONCE 02/24/20 10:30 02/24/20 10:31 DC 02/24/20 10:29 1 GM Clonazepam (KlonoPIN) 0.5 mg BIDACLD 02/26/20 12:00 02/28/20 09:19 0.5 MG Daptomycin 460 mg/ Sodium Chloride 50 ml @ 100 mls/hr 1X ONCE 02/24/20 18:00 02/24/20 18:29 DC 02/24/20 17:38 100 MLS/HR Dextrose (Dextrose 50%-Water Syringe) 12.5 gm PRN Q15MIN PRN 02/26/20 06:30 02/26/20 06:28 25 GM Divalproex Sodium (Depakote Er) 500 mg BIDACLD 02/26/20 12:00 02/28/20 09:18 500 MG Lactobacillus Rhamnosus (Culturelle) 1 cap BID 02/26/20 13:30 02/28/20 09:19 1 CAP Morphine Sulfate (Morphine Ir) 15 mg PRN BID PRN 02/26/20 11:45 02/27/20 22:03 15 MG Non-Formulary Medication (Lansoprazole ) 30 mg DAILY 02/27/20 09:00 UNV Ondansetron HCl (Zofran) 4 mg PRN Q6HRS PRN 02/25/20 18:00 02/26/20 08:39 4 MG Pantoprazole Sodium (Protonix) 40 mg DAILYAC 02/26/20 11:45 02/28/20 09:20 40 MG Piperacillin Sod/ Tazobactam Sod (Zosyn Per Pharmacy) 1 each PRN DAILY PRN 02/24/20 17:00 02/27/20 11:41 DC Piperacillin Sod/ Tazobactam Sod 2.25 gm/Sodium Chloride 50 ml @ 100 mls/hr Q6HRS 02/24/20 18:00 02/27/20 11:38 DC 02/27/20 05:38 100 MLS/HR Prednisone (Prednisone) 5 mg DAILY 02/26/20 12:00 02/28/20 09:18 5 MG Simvastatin (Zocor) 20 mg HS 02/26/20 21:00 02/27/20 22:03 20 MG Sodium Chloride 1,000 ml @ 100 mls/hr Q10H 02/25/20 14:00 02/28/20 02:00 100 MLS/HR Testosterone Cypionate (Depo-Testosterone) 150 mg Q2WKS 03/03/20 09:00 Venlafaxine HCl (Effexor) 50 mg TID 02/26/20 14:00 02/28/20 09:18 50 MG Lab Laboratory Tests Test 02/27/20 17:01 02/27/20 21:00 02/28/20 06:25 02/28/20 07:19 Glucose (Fingerstick) 99 mg/dL (70-99) 69 mg/dL (70-99) 49 mg/dL (70-99) Sodium Level 144 mmol/L (136-145) Potassium Level 4.0 mmol/L (3.5-5.1) Chloride Level 108 mmol/L (98-107) Carbon Dioxide Level 29 mmol/L (21-32) Anion Gap 7 (6-14) Blood Urea Nitrogen 13 mg/dL (8-26) Creatinine 1.3 mg/dL (0.7-1.3) Estimated GFR (Cockcroft-Gault) 54.4 Glucose Level 63 mg/dL (70-99) Calcium Level 8.0 mg/dL (8.5-10.1) Test 02/28/20 09:41 02/28/20 11:45 Glucose (Fingerstick) 62 mg/dL (70-99) 79 mg/dL (70-99) Results All relevant outside records, renal labs, imaging studies, telemetry/EKG's were reviewed. Justicifation of Admission Dx: Justifications for Admission: Justification of Admission Dx: Yes Acute Renal Failure: 3-Fold Rise in Serum Crea ROBERTO LUNA MD Feb 28, 2020 11:51
--- NOTE | 2020-02-28 18:00 | NUR ---
Patient has appeared to be in relatively good spirits this evening, even smiling, tolerating diet, po fluids well. Patient has ambulated, gait steady.
[2020-02-28] MEDS: ACETAMINOPHEN 325 MG TABLET. PO PRN (18:03)
[2020-02-28] MEDS: SIMVASTATIN 20 MG TABLET PO SCH (20:54)
[2020-02-28] MEDS: ONDANSETRON PF 4 MG/2 ML VIAL. IVP PRN (23:47)
[2020-02-29 03:16] VITALS: BP 127/78
[2020-02-29 07:00] VITALS: BP 122/70
[2020-02-29] MEDS ORDERED: AMOX1TAB11 PO (07:53)
[2020-02-29] MEDS: IV NORMAL SALINE 1000ML BAG 1,000 ML IV SCH (08:00)
[2020-02-29] MEDS: AMOXICILLIN/K CLAV 875/125MG TABLET. PO SCH (08:54)
[2020-02-29] MEDS: PANTOPRAZOLE 40 MG TABLET.DR. PO SCH (08:54)
[2020-02-29] MEDS: ASPIRIN ENTERIC COATED 81 MG TABLET.DR. PO SCH (08:55)
[2020-02-29] MEDS: VENLAFAXINE 50 MG TABLET. PO SCH (08:55)
[2020-02-29] MEDS: AZITHROMYCIN 250 MG TABLET. PO SCH (08:55)
[2020-02-29] MEDS: LACTOBACILLUS RHAMNOSUS GG 1 CAPSULE. PO SCH (08:55)
[2020-02-29] MEDS: predniSONE 5 MG TABLET PO SCH (08:55)
[2020-02-29] MEDS: clonazePAM 0.5 MG TABLET PO SCH (12:09)
[2020-02-29] MEDS: DIVALPROEX EXTENDED RELEASE 500 MG TAB.ER.24H. PO SCH (12:12)
--- NOTE | 2020-02-29 12:12 | NUR ---
Patient discharged home to . and patient verbalized understanding of discharge instructions, given copy of instructions and [address] Flores. Pt alert and oriented at discharge, thanking staff by name, and appeared to be in good spirits.
--- NOTE | 2020-02-29 13:58 | DS ---
DATE OF DISCHARGE: 02/29/2020 PRIMARY DIAGNOSIS: Right lower lobe pneumonia. ADDITIONAL DIAGNOSES: Leukocytosis, acute kidney failure, panhypopituitarism, anxiety, hypotension. CHIEF COMPLAINT AND HISTORY OF PRESENT ILLNESS: This 69-year-old white male well known to me from followup in the office. The patient was admitted through the Emergency Room, not feeling well for over a week or so with nausea, vomiting, diarrhea, cough, dizziness, fevers; was found to have a leukocytosis, acute renal failure, right lower lobe pneumonia, be hypotensive and was fluid resuscitated; given IV antibiotics and admitted to the ICU. SUMMARY OF STAY: The patient was admitted. ID as well as Pulmonary and Renal followed along and he improved throughout the stay with leukocytosis resolving, with renal failure resolving and kidney function returning to normal. He was once again able to eat. His GI symptoms seemed to resolve. He is COVID negative during the stay, was transitioned to p.o. Augmentin by ID and felt ready for discharge on the and this was accomplished. DISPOSITION: The patient is discharged to home. DIET: Regular. ACTIVITY: As tolerated. FOLLOWUP: Office within the next 2 weeks. DISCHARGE MEDICATIONS: His regular home meds plus Augmentin 875 b.i.d. for a week. He was intermittently hypoglycemic during the stay without medications to explain the same. 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 DANY JERONIMO MD DR: RANDI/otilia JOB#: [id number] / [id number]
--- NOTE | 2020-02-29 14:16 | PDOC ---
DATE OF SERVICE DATE: 02/29/20 TIME: 14:15 SUBJECTIVE ROS stable OBJECTIVE Vital Signs Vital Signs Date Time Temp Pulse Resp B/P (MAP) Pulse Ox O2 Delivery O2 Flow Rate FiO2 02/29/20 08:00 Room Air 02/29/20 07:00 98.0 63 18 122/70 (87) 94 98.0 I & 0 Intake and Output 02/29/20 07:00 Intake Total 1930 ml Balance 1930 ml Intake Oral 1930 ml # Voids 4 # Bowel Movements 1 PHYSICAL EXAM Physical Exam GENERAL: Alert, oriented , not in distress. HEENT: NAD. NECK: Supple, no JVP LUNGS: Clear, non labored HEART: S1, S2 regular. ABDOMEN: Benign. EXTREMITIES: No edema, cyanosis. 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 per home med list, defer to Primary COMMENT/RELEVANT DATA Meds Current Medications Medications (Trade) Dose Ordered Sig/Shukri Start Time Stop Time Status Last Admin Dose Admin Acetaminophen (Tylenol) 650 mg PRN Q6HRS PRN 02/24/20 17:30 02/28/20 18:03 650 MG Acetaminophen/ Hydrocodone Bitart (Lortab 5/325) 1 tab PRN Q6HRS PRN 02/26/20 11:45 02/26/20 13:12 1 TAB Alprazolam (Xanax) 0.25 mg PRN Q8HRS PRN 02/26/20 11:45 Amoxicillin/ Clavulanate Potassium (Augmentin 875/ 125mg) 1 tab BID 02/27/20 21:00 02/29/20 08:54 1 TAB Aspirin (Aspirin Chewable) 324 mg 1X ONCE 02/24/20 11:30 02/24/20 11:31 DC 02/24/20 11:47 324 MG Aspirin (Ecotrin) 81 mg DAILYWBKFT 02/26/20 08:00 02/29/20 08:55 81 MG Azithromycin (Zithromax) 500 mg DAILY 02/28/20 09:00 02/29/20 08:55 500 MG Azithromycin 500 mg/Sodium Chloride 250 ml @ 250 mls/hr Q24H 02/25/20 10:30 02/27/20 15:25 DC 02/27/20 10:56 250 MLS/HR Ceftriaxone Sodium (Rocephin) 1 gm 1X ONCE 02/24/20 10:30 02/24/20 10:31 DC 02/24/20 10:29 1 GM Clonazepam (KlonoPIN) 0.5 mg BIDACLD 02/26/20 12:00 02/29/20 12:09 0.5 MG Daptomycin 460 mg/ Sodium Chloride 50 ml @ 100 mls/hr 1X ONCE 02/24/20 18:00 02/24/20 18:29 DC 02/24/20 17:38 100 MLS/HR Dextrose (Dextrose 50%-Water Syringe) 12.5 gm PRN Q15MIN PRN 02/26/20 06:30 02/26/20 06:28 25 GM Divalproex Sodium (Depakote Er) 500 mg BIDACLD 02/26/20 12:00 02/29/20 12:12 500 MG Lactobacillus Rhamnosus (Culturelle) 1 cap BID 02/26/20 13:30 02/29/20 08:55 1 CAP Morphine Sulfate (Morphine Ir) 15 mg PRN BID PRN 02/26/20 11:45 02/27/20 22:03 15 MG Non-Formulary Medication (Lansoprazole ) 30 mg DAILY 02/27/20 09:00 UNV Ondansetron HCl (Zofran) 4 mg PRN Q6HRS PRN 02/25/20 18:00 02/28/20 23:47 4 MG Pantoprazole Sodium (Protonix) 40 mg DAILYAC 02/26/20 11:45 02/29/20 08:54 40 MG Piperacillin Sod/ Tazobactam Sod (Zosyn Per Pharmacy) 1 each PRN DAILY PRN 02/24/20 17:00 02/27/20 11:41 DC Piperacillin Sod/ Tazobactam Sod 2.25 gm/Sodium Chloride 50 ml @ 100 mls/hr Q6HRS 02/24/20 18:00 02/27/20 11:38 DC 02/27/20 05:38 100 MLS/HR Prednisone (Prednisone) 5 mg DAILY 02/26/20 12:00 02/29/20 08:55 5 MG Simvastatin (Zocor) 20 mg HS 02/26/20 21:00 02/28/20 20:54 20 MG Sodium Chloride 1,000 ml @ 100 mls/hr Q10H 02/25/20 14:00 02/28/20 20:54 100 MLS/HR Testosterone Cypionate (Depo-Testosterone) 150 mg Q2WKS 03/03/20 09:00 Venlafaxine HCl (Effexor) 50 mg TID 02/26/20 14:00 02/29/20 08:55 50 MG Lab Laboratory Tests Test 02/28/20 17:13 02/28/20 21:03 02/29/20 07:19 02/29/20 08:50 Glucose (Fingerstick) 97 mg/dL (70-99) 80 mg/dL (70-99) 57 mg/dL (70-99) 91 mg/dL (70-99) Results All relevant outside records, renal labs, imaging studies, telemetry/EKG's were reviewed. Justicifation of Admission Dx: Justifications for Admission: Justification of Admission Dx: Yes Acute Renal Failure: 3-Fold Rise in Serum ROBERTO Powers MD Feb 29, 2020 14:16
[2020-03-03] MEDS ORDERED: TESTOSTERONE CYPIONATE 200 MG/ML VIAL. IM SCH (09:00)
== END 2020-02-29 12:12 | disposition home or self-care (01) | DRG 177 ==
LOC: ER 08:27 → 1 WEST ICU 11:15 → 5 NORTH 02-25 18:06
PROVIDERS: ADMIT Family Medicine; ATTEND Family Medicine
DX: J15.6 Pneumonia due to other Gram-negative bacteria (principal); I21.4 Non-ST elevation (NSTEMI) myocardial infarction; N17.0 Acute kidney failure with tubular necrosis; E23.0 Hypopituitarism; J98.11 Atelectasis; E03.9 Hypothyroidism, unspecified; E16.2 Hypoglycemia, unspecified; E78.00 Pure hypercholesterolemia, unspecified; F41.9 Anxiety disorder, unspecified; E78.5 Hyperlipidemia, unspecified; K21.9 Gastro-esophageal reflux disease without esophagitis; E86.0 Dehydration; Z20.828 Contact with and (suspected) exposure to other viral communicable diseases; Z87.891 Personal history of nicotine dependence; Z90.49 Acquired absence of other specified parts of digestive tract; Z88.8 Allergy status to other drugs, medicaments and biological substances
CPT/HCPCS: 36415; 71045; 74176; 80048; 80053; 80061; 80164; 81001; 82962; 83605; 83735; 83880; 84100; 84439; 84443; 84484; 85007; 85025; 85610; 85730; 87040; 93005; 93306; 96361; 96365; 96375; 99291; J0456; J0696; J0878; J2405; J2543; J7030; J7050; J7512; G0378; U0003-CS